=== PATIENT | male | born 1960 | race Caucasian/White ===

== ENCOUNTER 2016-03-22 14:15 | Emergency (ER) | payer MEDICARE, OTHER ==
[~2016-03-22] VITALS: Ht 167.6 cm; Wt 61.8 kg
[~2016-03-22 14:15] MED LIST: ASPI-556 PO; INSLAN SQ; INSNOV SQ; METF500T4 PO; VITAD1000 PO
[2016-03-22 14:26] LABS: GLUCOSE,POINT OF CARE > 600 MG/DL (70-110)
[2016-03-22 15:46] LABS: BASOPHILS % (AUTO) 0.7 % (0.0-2.0); EOSINOPHILS % (AUTO) 4.4 % (1.0-6.0); HEMATOCRIT 37.6 % (41-53); HEMOGLOBIN 12.9 g/dL (13.5-17.5); LYMPHOCYTES # (AUTO) 1.7 K/uL (1.0-4.8); LYMPHOCYTES % (AUTO) 23.6 % (22.0-44.0); MEAN CORPUSCULAR HEMOGLOBIN 30.3 pg (26.0-34.0); MEAN CORPUSCULAR HGB CONC 34.2 G/dL (31.0-37.0); MEAN CORPUSCULAR VOLUME 89 fL (80-100); MONOCYTES # (AUTO) 0.6 K/uL (0.1-1.0); MONOCYTES % (AUTO) 8.4 % (2.0-9.0); NEUTROPHILS # (AUTO) 4.5 K/uL (1.8-7.7); NEUTROPHILS % (AUTO) 62.9 % (40.0-70.0); PLATELET COUNT (AUTO) 248 K/uL (150-450); RED BLOOD CELL COUNT(AUTO) 4.25 MIL/uL (4.50-5.90); RED CELL DISTRIBUTION WIDTH 12.8 % (11.5-14.5); WHITE BLOOD COUNT (AUTO) 7.2 K/uL (4.5-11.0)
[2016-03-22] MEDS ORDERED: SODIUM CHLORIDE 0.9% 1,000 ML IV ONE ×2 (16:00→17:45)
[2016-03-22 16:02] LABS: ALBUMIN 3.6 g/dL (3.4-5.0); BILIRUBIN,TOTAL 0.4 mg/dL (0.1-1.0); CALCIUM, TOTAL 8.9 mg/dL (8.8-10.5); CREATININE 1.69 mg/dL (0.60-1.30); POTASSIUM 4.5 mmol/L (3.5-5.1); TOTAL PROTEIN, SERUM 7.6 g/dL (6.4-8.2)
[2016-03-22 16:31] LABS: APPEARANCE,URINE CLEAR (CLEAR); GLUCOSE, URINE (UA) >=1000 mg/dL (NEGATIVE); KETONES,URINE NEGATIVE (NEGATIVE); LEUKOCYTE ESTERASE ,URINE NEGATIVE (NEGATIVE); OCCULT BLOOD,URINE TRACE (NEGATIVE); PH,URINE 5.5 (5.0-8.0); PROTEIN,URINE NEGATIVE (NEGATIVE)
[2016-03-22] MEDS ORDERED: HYDROCODONE/ACETAMINOPHEN 5-325 MG TABLET PO ONE (16:45)
[2016-03-22] MEDS ORDERED: INSULIN REGULAR, HUMAN 100 UNITS/ML IVP ONE (16:45)
[2016-03-22 16:49] LABS: ABG A-A DIFF O2 13.9 mmHg (10-20.0); ABG HCO3 20.9 mmol/L (22.0-26.0); ABG OXYHEMOGLOBIN 95.7 % (94.0-100.0); ABG PCO2 35 mmHg (35-45); ABG PH 7.381 (7.35-7.450); ALLEN TEST, BLOOD GAS Positive
[2016-03-22 16:51] LABS: RBC,URINE None Seen /HPF (0-2); SQUAMOUS EPITHELIAL CELL,UR Rare /LPF (None Seen); WBC,URINE 0-2 /HPF (0-5)
[2016-03-22 18:02] LABS: GLUCOSE,POINT OF CARE 170 MG/DL (70-110)
[2016-03-22 18:41] LABS: GLUCOSE,POINT OF CARE 106 MG/DL (70-110)
[2016-03-22] MEDS ORDERED: KETOROLAC TROMETHAMINE 30 MG/ML VIAL IVP ONE (18:45)
[2016-03-22 19:36] LABS: ANION GAP 7 mmol/L (8-16); CALCIUM, TOTAL 8.2 mg/dL (8.8-10.5); CARBON DIOXIDE 21 mmol/L (22-29); CHLORIDE 104 mmol/L (98-107); CREATININE 1.06 mg/dL (0.60-1.30); GLOMERULAR FILTR. RATE CALC > 60 mL/min (>60); POTASSIUM 3.8 mmol/L (3.5-5.1); SODIUM SERUM 132 mmol/L (136-145); UREA NITROGEN, BLOOD 22 mg/dL (7-18)
[2016-03-22 19:56] VITALS: BP 105/71
[2016-03-22 19:56] LABS: GLUCOSE,POINT OF CARE 209 MG/DL (70-110)
== END 2016-03-22 20:18 | disposition home or self-care (01) ==
LOC: EMS 14:17
DX: E11.65 Type 2 diabetes mellitus with hyperglycemia (principal); E86.0 Dehydration; I10 Essential (primary) hypertension; E78.00 Pure hypercholesterolemia, unspecified; F17.210 Nicotine dependence, cigarettes, uncomplicated; Z79.82 Long term (current) use of aspirin; Z79.4 Long term (current) use of insulin
CPT/HCPCS: 36415; 71010; 80048; 80053; 81001; 82009; 82805; 82962; 83690; 83880; 84484; 85025; 93005; 96361; 96374; 96375; 99285; J1815; J1885; J7030

== ENCOUNTER 2016-03-28 21:32 | Inpatient (IN) | payer MEDICARE, OTHER ==
[~2016-03-28] VITALS: Ht 167.6 cm; Wt 80.2 kg
[2016-03-28] MEDS ORDERED: GABA-531 PO (21:47)
[2016-03-28] MEDS ORDERED: IBUP-1547 PO (21:47)
[2016-03-28] MEDS ORDERED: AMOX500T2 PO (21:47)
[2016-03-28 21:56] LABS: GLUCOSE,POINT OF CARE 342 MG/DL (70-110)
[2016-03-28 22:26] LABS: BASOPHILS # (AUTO) 0.03 K/uL (0.00-0.20); BASOPHILS % (AUTO) 0.6 % (0.0-2.0); EOSINOPHILS # (AUTO) 0.23 K/uL (0.00-0.70); EOSINOPHILS % (AUTO) 4.05 % (1.0-6.0); HEMATOCRIT 36.9 % (41-53); HEMOGLOBIN 12.5 g/dL (13.5-17.5); LYMPHOCYTES # (AUTO) 1.7 K/uL (1.0-4.8); LYMPHOCYTES % (AUTO) 30.1 % (22.0-44.0); MEAN CORPUSCULAR HEMOGLOBIN 30.4 pg (26.0-34.0); MEAN CORPUSCULAR VOLUME 90 fL (80-100); MONOCYTES # (AUTO) 0.5 K/uL (0.1-1.0); MONOCYTES % (AUTO) 9.5 % (2.0-9.0); NEUTROPHILS # (AUTO) 3.2 K/uL (1.8-7.7); NEUTROPHILS % (AUTO) 55.8 % (40.0-70.0); PLATELET COUNT (AUTO) 248 K/uL (150-450); RED BLOOD CELL COUNT(AUTO) 4.12 MIL/uL (4.50-5.90); RED CELL DISTRIBUTION WIDTH 12.9 % (11.5-14.5); WHITE BLOOD COUNT (AUTO) 5.7 K/uL (4.5-11.0)
[2016-03-28 22:33] LABS: INR 0.9 (0.9-1.1)
[2016-03-28 22:36] LABS: ANION GAP 6 mmol/L (8-16); CALCIUM, TOTAL 8.7 mg/dL (8.8-10.5); CARBON DIOXIDE 29 mmol/L (22-29); CHLORIDE 100 mmol/L (98-107); CREATININE 1.09 mg/dL (0.60-1.30); GLOMERULAR FILTR. RATE CALC > 60 mL/min (>60); POTASSIUM 4.6 mmol/L (3.5-5.1); SODIUM SERUM 135 mmol/L (136-145); UREA NITROGEN, BLOOD 22 mg/dL (7-18)
[2016-03-28 22:44] LABS: B-TYPE NATRIURETIC PEPTIDE 57 pg/mL (0-100)
[2016-03-28 23:00] LABS: ALANINE AMINOTRANSFERASE 22 U/L (12-78); ALBUMIN 3.2 g/dL (3.4-5.0); ASPARTATE AMINOTRANSFERASE 11 U/L (15-37); BILIRUBIN,TOTAL 0.4 mg/dL (0.1-1.0); CREATINE KINASE MB 2.2 ng/mL (0-5); CREATINE KINASE, TOTAL 233 U/L (39-308); TOTAL PROTEIN, SERUM 6.9 g/dL (6.4-8.2)
[2016-03-28 23:29] LABS: ERYTHROCYTE SEDIMENTATION RATE 32 MM/HR (0-15)
[2016-03-29] VITALS (8 sets, daily range): BP systolic 88–153; BP diastolic 50–81
[2016-03-29] MEDS ORDERED: SODIUM CHLORIDE 0.9% 1,000 ML IV ONE (00:15)
[2016-03-29] MEDS ORDERED: ONDANSETRON HCL 4 MG/2 ML VIAL IVP ONE (00:15)
[2016-03-29] MEDS ORDERED: MORPHINE SULFATE 4 MG/ML SYRINGE IVP ONE (00:15)
[2016-03-29] MEDS ORDERED: INSULIN REGULAR, HUMAN 100 UNITS/ML IVP ONE (00:15)
[2016-03-29] MEDS ORDERED: ASPIRIN 81 MG CHEWABLE TABLET PO ONE (00:15)
[2016-03-29] MEDS ORDERED: DEXTROSE 50%-WATER 25 GM/50 ML SYRINGE IVP PRN (01:15)
[2016-03-29] MEDS ORDERED: NITROGLYCERIN 2% (1 GM=INCH) PACKET TP PRN (01:15)
[2016-03-29] MEDS ORDERED: NITROGLYCERIN 0.4 MG SUBLINGUAL TABLET #25 SL PRN (01:15)
[2016-03-29 01:21] LABS: GLUCOSE COMMENT 1 Doctor Notified; GLUCOSE,POINT OF CARE 218 MG/DL (70-110)
[2016-03-29] MEDS ORDERED: INFLUENZA VIRUS VACCINE QVS 2016-17 (3YR+)/PF 60 MCG/0.5 ML SYRINGE IM ONE (03:30)
[2016-03-29] MEDS ORDERED: -PHARMACY VACCINE NOTE- MISC ONE ×2 (03:45)
[2016-03-29] MEDS: MORPHINE SULFATE 2 MG/ML SYRINGE IVP PRN ×2 (03:56→15:19)
[2016-03-29] MEDS: INSULIN ASPART 100 UNITS/ML SQ PRN ×3 (05:33→17:22)
[2016-03-29] MEDS: ASPIRIN 81 MG CHEWABLE TABLET PO SCH (09:11)
[2016-03-29] MEDS: ACETAMINOPHEN 325 MG TABLET PO PRN (13:17)
[2016-03-29] MEDS ORDERED: SODIUM CHLORIDE 0.9% 250 ML IV ONE ×2 (16:09→16:15)
[2016-03-29] MEDS ORDERED: IBUPROFEN 800 MG TABLET PO SCH (21:00)
[2016-03-29] MEDS: INSULIN DETEMIR 100 UNITS/ML SQ SCH (21:03)
[2016-03-29] MEDS: GABAPENTIN 300 MG CAPSULE PO SCH (21:04)
[2016-03-30] VITALS (7 sets, daily range): BP systolic 99–131; BP diastolic 60–76
[2016-03-30 07:36] LABS: ANION GAP 2 mmol/L (8-16); CALCIUM, TOTAL 8.4 mg/dL (8.8-10.5); CARBON DIOXIDE 30 mmol/L (22-29); CHLORIDE 105 mmol/L (98-107); CREATINE KINASE, TOTAL 84 U/L (39-308); CREATININE 0.81 mg/dL (0.60-1.30); GLOMERULAR FILTR. RATE CALC > 60 mL/min (>60); POTASSIUM 4.6 mmol/L (3.5-5.1); SODIUM SERUM 137 mmol/L (136-145); UREA NITROGEN, BLOOD 16 mg/dL (7-18)
[2016-03-30 07:37] LABS: CHOL/HDL RATIO 1.9 (4.2-7.3); CREATINE KINASE MB 1.4 ng/mL (0-5)
[2016-03-30 07:49] LABS: B-TYPE NATRIURETIC PEPTIDE 70 pg/mL (0-100)
[2016-03-30] MEDS: ASPIRIN 81 MG CHEWABLE TABLET PO SCH (09:14)
[2016-03-30] MEDS ORDERED: REGADENOSON 0.4 MG/5 ML PF SYRINGE IVP ONE (13:04)
[2016-03-30] MEDS ORDERED: SESTAMIBI TC99M/UD ISOTOPE 1 EA INJ INJ ONE ×2 (13:05→15:10)
[2016-03-30] MEDS: ACETAMINOPHEN 325 MG TABLET PO PRN (13:36)
[2016-03-30] MEDS: INSULIN ASPART 100 UNITS/ML SQ PRN ×3 (14:09→22:08)
[2016-03-30] MEDS: GABAPENTIN 300 MG CAPSULE PO SCH (22:06)
[2016-03-30] MEDS: INSULIN DETEMIR 100 UNITS/ML SQ SCH (22:07)
[2016-03-31] VITALS (14 sets, daily range): BP systolic 91–111; BP diastolic 51–70
[2016-03-31] MEDS ORDERED: 0.9% SODIUM CHLORIDE 10 ML SYRINGE IVP PRN (05:45)
[2016-03-31 06:21] LABS: GLUCOSE,POINT OF CARE 207 MG/DL (70-110)
[2016-03-31 06:21] LABS: GLUCOSE COMMENT 1 Received Meds; GLUCOSE,POINT OF CARE 227 MG/DL (70-110)
[2016-03-31 06:21] LABS: GLUCOSE,POINT OF CARE 180 MG/DL (70-110)
[2016-03-31 06:21] LABS: GLUCOSE COMMENT 1 Received Meds; GLUCOSE,POINT OF CARE 144 MG/DL (70-110)
[2016-03-31] MEDS ORDERED: HEPARIN SODIUM 1000 UNITS/NS 1,000 ML ONE (07:54)
[2016-03-31] MEDS ORDERED: IOHEXOL 300 MG/ML 150 ML VIAL ONE (07:54)
[2016-03-31] MEDS ORDERED: SODIUM BICARBONATE 50 MEQ/50 ML VIAL ONE (07:54)
[2016-03-31] MEDS ORDERED: LIDOCAINE HCL/PF 1% 30 ML VIAL ONE (07:54)
[2016-03-31] MEDS ORDERED: VERAPAMIL HCL 2.5 MG/ML 2 ML VIAL ONE (08:09)
[2016-03-31] MEDS ORDERED: NITROGLYCERIN 50 MG/D5% WATER 0 ML ONE (08:09)
[2016-03-31] MEDS ORDERED: MIDAZOLAM HCL 2 MG/2 ML VIAL ONE (08:24)
[2016-03-31] MEDS ORDERED: SODIUM CHLORIDE 0.9% 500 ML IV ONE (08:25)
[2016-03-31] MEDS ORDERED: FentaNYL CITRATE-PF 100 MCG/2 ML VIAL ONE (08:25)
[2016-03-31] MEDS ORDERED: HEPARIN SODIUM 1000 UNITS/NS 1,000 ML IARTER ONE (08:25)
[2016-03-31] MEDS ORDERED: MIDAZOLAM HCL 2 MG/2 ML VIAL IVP ONE (08:30)
[2016-03-31] MEDS ORDERED: LIDOCAINE 1% 30 ML/SOD BICARB 8.4% 4 ML SQ ONE (08:30)
[2016-03-31] MEDS ORDERED: FentaNYL CITRATE-PF 100 MCG/2 ML VIAL IVP ONE ×3 (08:30→09:00)
[2016-03-31] MEDS ORDERED: IOHEXOL 300 MG/ML 150 ML VIAL IARTER ONE (08:30)
[2016-03-31] MEDS: ASPIRIN 81 MG CHEWABLE TABLET PO SCH (09:00)
[2016-03-31] MEDS: MORPHINE SULFATE 2 MG/ML SYRINGE IVP PRN ×2 (09:44→15:22)
[2016-03-31] MEDS: INSULIN ASPART 100 UNITS/ML SQ PRN (12:22)
[2016-03-31] MEDS ORDERED: REGADENOSON 0.4 MG/5 ML PF SYRINGE IVP ONE (18:09)
[2016-04-05 15:21] LABS: GLUCOSE COMMENT 1 Received Meds; GLUCOSE,POINT OF CARE 244 MG/DL (70-110)
[2016-04-05 15:21] LABS: GLUCOSE COMMENT 1 Received Meds; GLUCOSE,POINT OF CARE 193 MG/DL (70-110)
== END 2016-03-31 18:10 | disposition home or self-care (01) | DRG 287 ==
LOC: EMS 21:34 → 5N 03-29 00:25
PROVIDERS: ADMIT Internal Medicine; ATTEND Internal Medicine
PROC: 3E0234Z Introduction of Serum, Toxoid and Vaccine into Muscle, Percutaneous Approach (ICD-10-PCS; principal; 2016-03-31)
PROC: 4A023N7 Measurement of Cardiac Sampling and Pressure, Left Heart, Percutaneous Approach (ICD-10-PCS; 2016-03-31)
PROC: B2111ZZ Fluoroscopy of Multiple Coronary Arteries using Low Osmolar Contrast (ICD-10-PCS; 2016-03-31)
PROC: B2151ZZ Fluoroscopy of Left Heart using Low Osmolar Contrast (ICD-10-PCS; 2016-03-31)
PROC: B41F1ZZ Fluoroscopy of Right Lower Extremity Arteries using Low Osmolar Contrast (ICD-10-PCS; 2016-03-31)
DX: R07.89 Other chest pain (principal); E44.0 Moderate protein-calorie malnutrition; E11.65 Type 2 diabetes mellitus with hyperglycemia; E86.0 Dehydration; F41.9 Anxiety disorder, unspecified; F32.9 Major depressive disorder, single episode, unspecified; I10 Essential (primary) hypertension; E11.40 Type 2 diabetes mellitus with diabetic neuropathy, unspecified; G89.29 Other chronic pain; D64.9 Anemia, unspecified; R51 Headache; E78.00 Pure hypercholesterolemia, unspecified; F17.210 Nicotine dependence, cigarettes, uncomplicated; Z79.2 Long term (current) use of antibiotics; Z79.899 Other long term (current) drug therapy; Z79.4 Long term (current) use of insulin; Z68.28 Body mass index [BMI] 28.0-28.9, adult; Z23 Encounter for immunization; Z87.81 Personal history of (healed) traumatic fracture; Z82.49 Family history of ischemic heart disease and other diseases of the circulatory system
CPT/HCPCS: 70450; 78452; 82962; 83036; 83735; 85651; 90471; 93005; 93017; 93306; 96374; 96375; 99285; A9500; J1644; J1815; J2250; J2270; J2405; J2785; J3010; J3490; J7030; J7050; Q9967

== ENCOUNTER 2016-04-14 18:21 | Emergency (ER) | payer MEDICARE, OTHER ==
[~2016-04-14] VITALS: Ht 170.2 cm; Wt 79.5 kg
[~2016-04-14 18:21] MED LIST changes: -ASPI-556 PO; +GABA-531 PO; -INSNOV SQ; -METF500T4 PO; -VITAD1000 PO
[2016-04-14] MEDS ORDERED: IBUP-1547 PO (19:03)
[2016-04-14 19:07] LABS: GLUCOSE,POINT OF CARE 217 MG/DL (70-110)
[2016-04-14] MEDS ORDERED: KETOROLAC TROMETHAMINE 30 MG/ML VIAL IM ONE (21:30)
[2016-04-14 21:45] LABS: BASOPHILS # (AUTO) 0.03 K/uL (0.00-0.20); BASOPHILS % (AUTO) 0.6 % (0.0-2.0); EOSINOPHILS # (AUTO) 0.26 K/uL (0.00-0.70); EOSINOPHILS % (AUTO) 5.03 % (1.0-6.0); HEMATOCRIT 32.2 % (41-53); HEMOGLOBIN 10.9 g/dL (13.5-17.5); LYMPHOCYTES # (AUTO) 1.8 K/uL (1.0-4.8); LYMPHOCYTES % (AUTO) 34.6 % (22.0-44.0); MEAN CORPUSCULAR HEMOGLOBIN 30.6 pg (26.0-34.0); MEAN CORPUSCULAR HGB CONC 33.8 G/dL (31.0-37.0); MEAN CORPUSCULAR VOLUME 90 fL (80-100); MONOCYTES # (AUTO) 0.6 K/uL (0.1-1.0); MONOCYTES % (AUTO) 12.4 % (2.0-9.0); NEUTROPHILS # (AUTO) 2.5 K/uL (1.8-7.7); NEUTROPHILS % (AUTO) 47.3 % (40.0-70.0); PLATELET COUNT (AUTO) 213 K/uL (150-450); RED BLOOD CELL COUNT(AUTO) 3.56 MIL/uL (4.50-5.90); RED CELL DISTRIBUTION WIDTH 13.2 % (11.5-14.5); WHITE BLOOD COUNT (AUTO) 5.2 K/uL (4.5-11.0)
[2016-04-14 21:55] LABS: ANION GAP 7 mmol/L (8-16); CALCIUM, TOTAL 8.5 mg/dL (8.8-10.5); CARBON DIOXIDE 27 mmol/L (22-29); CHLORIDE 107 mmol/L (98-107); CREATININE 1.04 mg/dL (0.60-1.30); GLOMERULAR FILTR. RATE CALC > 60 mL/min (>60); SODIUM SERUM 141 mmol/L (136-145); UREA NITROGEN, BLOOD 24 mg/dL (7-18)
[2016-04-14 22:00] LABS: ALANINE AMINOTRANSFERASE 21 U/L (12-78); ALBUMIN 3.1 g/dL (3.4-5.0); ASPARTATE AMINOTRANSFERASE 8 U/L (15-37); BILIRUBIN,TOTAL 0.3 mg/dL (0.1-1.0); TOTAL PROTEIN, SERUM 6.5 g/dL (6.4-8.2)
[2016-04-14 22:53] VITALS: BP 121/69
== END 2016-04-14 22:57 | disposition home or self-care (01) ==
LOC: EMS 18:24
DX: F19.20 Other psychoactive substance dependence, uncomplicated (principal); F41.9 Anxiety disorder, unspecified; F32.9 Major depressive disorder, single episode, unspecified; E11.9 Type 2 diabetes mellitus without complications; I10 Essential (primary) hypertension; E78.00 Pure hypercholesterolemia, unspecified; Z79.4 Long term (current) use of insulin
CPT/HCPCS: 36415; 71010; 80053; 82962; 85025; 93005; 96372; 99285; J1885

== ENCOUNTER 2016-04-19 10:43 | Emergency (ER) | payer MEDICARE, OTHER ==
[~2016-04-19] VITALS: Ht 167.6 cm; Wt 88.6 kg
[~2016-04-19 10:43] MED LIST changes: +IBUP-1547 PO
[2016-04-19 12:01] LABS: GLUCOSE,POINT OF CARE 150 MG/DL (70-110)
[2016-04-19] MEDS ORDERED: LOPERAMIDE HCL 2 MG CAPSULE PO ONE (15:45)
[2016-04-19] MEDS ORDERED: HYDROCODONE/ACETAMINOPHEN 5-325 MG TABLET PO ONE (15:45)
[2016-04-19] MEDS ORDERED: ONDANSETRON HCL 4 MG TABLET PO ONE (15:45)
[2016-04-19 16:09] LABS: BASOPHILS % (AUTO) 0.5 % (0.0-2.0); EOSINOPHILS % (AUTO) 3.9 % (1.0-6.0); HEMATOCRIT 34.7 % (41-53); HEMOGLOBIN 11.5 g/dL (13.5-17.5); LYMPHOCYTES # (AUTO) 1.6 K/uL (1.0-4.8); LYMPHOCYTES % (AUTO) 27.7 % (22.0-44.0); MEAN CORPUSCULAR HEMOGLOBIN 30.4 pg (26.0-34.0); MEAN CORPUSCULAR HGB CONC 33.3 G/dL (31.0-37.0); MEAN CORPUSCULAR VOLUME 91 fL (80-100); MONOCYTES # (AUTO) 0.6 K/uL (0.1-1.0); MONOCYTES % (AUTO) 10.9 % (2.0-9.0); NEUTROPHILS # (AUTO) 3.2 K/uL (1.8-7.7); PLATELET COUNT (AUTO) 205 K/uL (150-450); RED BLOOD CELL COUNT(AUTO) 3.79 MIL/uL (4.50-5.90); RED CELL DISTRIBUTION WIDTH 13.4 % (11.5-14.5); WHITE BLOOD COUNT (AUTO) 5.7 K/uL (4.5-11.0)
[2016-04-19 17:19] LABS: ERYTHROCYTE SEDIMENTATION RATE 44 MM/HR (0-15)
[2016-04-19 17:35] VITALS: BP 145/92
== END 2016-04-19 18:21 | disposition home or self-care (01) ==
LOC: EMS 10:46
DX: S90.414A Abrasion, right lesser toe(s), initial encounter (principal); E11.40 Type 2 diabetes mellitus with diabetic neuropathy, unspecified; E78.00 Pure hypercholesterolemia, unspecified; I10 Essential (primary) hypertension; F17.210 Nicotine dependence, cigarettes, uncomplicated; Z79.4 Long term (current) use of insulin; X58.XXXA Exposure to other specified factors, initial encounter; Y93.89 Activity, other specified; Y92.89 Other specified places as the place of occurrence of the external cause; Y99.8 Other external cause status
CPT/HCPCS: 36415; 73630; 82962; 85025; 85651; 86140; 99285; Q0162

== ENCOUNTER 2016-04-23 18:48 | Emergency (ER) | payer MEDICARE, OTHER ==
[~2016-04-23] VITALS: Ht 167.6 cm; Wt 88.2 kg
[2016-04-23 19:31] LABS: GLUCOSE COMMENT 1 Doctor Notified; GLUCOSE,POINT OF CARE 172 MG/DL (70-110)
[2016-04-23] MEDS ORDERED: KETOROLAC TROMETHAMINE 60 MG/2 ML VIAL IM ONE (21:00)
[2016-04-23 22:11] VITALS: BP 141/84
== END 2016-04-23 22:12 | disposition home or self-care (01) ==
LOC: EMS 18:55
DX: E11.40 Type 2 diabetes mellitus with diabetic neuropathy, unspecified (principal); R60.9 Edema, unspecified; G89.29 Other chronic pain; M25.579 Pain in unspecified ankle and joints of unspecified foot; I10 Essential (primary) hypertension; E78.00 Pure hypercholesterolemia, unspecified; E11.9 Type 2 diabetes mellitus without complications; Z87.891 Personal history of nicotine dependence; Z79.4 Long term (current) use of insulin
CPT/HCPCS: 82962; 96372; 99283; J1885

== ENCOUNTER 2016-06-09 11:42 | Emergency (ER) | payer MEDICARE, OTHER ==
[~2016-06-09] VITALS: Ht 170.2 cm; Wt 81.8 kg
[~2016-06-09 11:42] MED LIST changes: -IBUP-1547 PO
[2016-06-09] MEDS ORDERED: SODIUM CHLORIDE 0.9% 1,000 ML IV ONE (12:45)
[2016-06-09 12:55] LABS: BASOPHILS # (AUTO) 0.04 K/uL (0.00-0.20); BASOPHILS % (AUTO) 0.6 % (0.0-2.0); EOSINOPHILS % (AUTO) 2.99 % (1.0-6.0); HEMATOCRIT 33.6 % (41-53); HEMOGLOBIN 11.4 g/dL (13.5-17.5); LYMPHOCYTES # (AUTO) 1.1 K/uL (1.0-4.8); LYMPHOCYTES % (AUTO) 16.6 % (22.0-44.0); MEAN CORPUSCULAR HEMOGLOBIN 30.2 pg (26.0-34.0); MEAN CORPUSCULAR HGB CONC 33.8 G/dL (31.0-37.0); MEAN CORPUSCULAR VOLUME 89 fL (80-100); MONOCYTES # (AUTO) 0.6 K/uL (0.1-1.0); MONOCYTES % (AUTO) 8.9 % (2.0-9.0); NEUTROPHILS # (AUTO) 4.8 K/uL (1.8-7.7); PLATELET COUNT (AUTO) 239 K/uL (150-450); RED BLOOD CELL COUNT(AUTO) 3.76 MIL/uL (4.50-5.90); RED CELL DISTRIBUTION WIDTH 13.3 % (11.5-14.5); WHITE BLOOD COUNT (AUTO) 6.7 K/uL (4.5-11.0)
[2016-06-09 13:00] LABS: ANION GAP 8 mmol/L (8-16); CALCIUM, TOTAL 8.5 mg/dL (8.8-10.5); CARBON DIOXIDE 27 mmol/L (22-29); CHLORIDE 104 mmol/L (98-107); CREATININE 1.03 mg/dL (0.60-1.30); GLOMERULAR FILTR. RATE CALC > 60 mL/min (>60); POTASSIUM 3.9 mmol/L (3.5-5.1); SODIUM SERUM 139 mmol/L (136-145); UREA NITROGEN, BLOOD 24 mg/dL (7-18)
[2016-06-09] MEDS ORDERED: MIDODRINE HCL 5 MG TABLET PO ONE (13:00)
[2016-06-09 13:06] LABS: ALANINE AMINOTRANSFERASE 18 U/L (12-78); ALBUMIN 3.4 g/dL (3.4-5.0); ASPARTATE AMINOTRANSFERASE 5 U/L (15-37); BILIRUBIN,TOTAL 0.4 mg/dL (0.1-1.0); TOTAL PROTEIN, SERUM 7.4 g/dL (6.4-8.2)
[2016-06-09 16:12] VITALS: BP 144/76
[2016-06-09 16:57] LABS: GLUCOSE,POINT OF CARE 110 MG/DL (70-110)
== END 2016-06-09 16:14 | disposition home or self-care (01) ==
LOC: EMS 11:48
DX: I95.1 Orthostatic hypotension (principal); E78.00 Pure hypercholesterolemia, unspecified; I10 Essential (primary) hypertension; E11.40 Type 2 diabetes mellitus with diabetic neuropathy, unspecified; Z87.891 Personal history of nicotine dependence; Z79.4 Long term (current) use of insulin
CPT/HCPCS: 36415; 80053; 82962; 85025; 93005; 96360; 99285; J7030

== ENCOUNTER 2016-06-15 11:03 | Emergency (ER) | payer MEDICARE, OTHER ==
[~2016-06-15] VITALS: Ht 167.6 cm; Wt 83.0 kg
[2016-06-15 11:17] LABS: GLUCOSE,POINT OF CARE 314 MG/DL (70-110)
[2016-06-15] MEDS ORDERED: SODIUM CHLORIDE 0.9% 1,000 ML IV ONE (11:30)
[2016-06-15 11:34] LABS: BASOPHILS % (AUTO) 0.7 % (0.0-2.0); EOSINOPHILS % (AUTO) 5.7 % (1.0-6.0); HEMATOCRIT 38.3 % (41-53); HEMOGLOBIN 12.7 g/dL (13.5-17.5); LYMPHOCYTES # (AUTO) 1.4 K/uL (1.0-4.8); MEAN CORPUSCULAR HEMOGLOBIN 29.4 pg (26.0-34.0); MEAN CORPUSCULAR HGB CONC 33.2 G/dL (31.0-37.0); MEAN CORPUSCULAR VOLUME 89 fL (80-100); MONOCYTES # (AUTO) 0.7 K/uL (0.1-1.0); MONOCYTES % (AUTO) 11.9 % (2.0-9.0); NEUTROPHILS # (AUTO) 3.1 K/uL (1.8-7.7); NEUTROPHILS % (AUTO) 56.7 % (40.0-70.0); PLATELET COUNT (AUTO) 338 K/uL (150-450); RED BLOOD CELL COUNT(AUTO) 4.33 MIL/uL (4.50-5.90); RED CELL DISTRIBUTION WIDTH 13.1 % (11.5-14.5); WHITE BLOOD COUNT (AUTO) 5.5 K/uL (4.5-11.0)
[2016-06-15 11:45] LABS: ANION GAP 8 mmol/L (8-16); CALCIUM, TOTAL 9.3 mg/dL (8.8-10.5); CARBON DIOXIDE 28 mmol/L (22-29); CHLORIDE 98 mmol/L (98-107); CREATININE 1.26 mg/dL (0.60-1.30); GLOMERULAR FILTR. RATE CALC 59 mL/min (>60); POTASSIUM 4.4 mmol/L (3.5-5.1); SODIUM SERUM 134 mmol/L (136-145); UREA NITROGEN, BLOOD 22 mg/dL (7-18)
[2016-06-15 11:50] LABS: ALANINE AMINOTRANSFERASE 31 U/L (12-78); ALBUMIN 3.4 g/dL (3.4-5.0); ASPARTATE AMINOTRANSFERASE 9 U/L (15-37); BILIRUBIN,TOTAL 0.4 mg/dL (0.1-1.0); CREATINE KINASE, TOTAL 64 U/L (39-308); TOTAL PROTEIN, SERUM 8.2 g/dL (6.4-8.2)
[2016-06-15 12:02] LABS: B-TYPE NATRIURETIC PEPTIDE 72 pg/mL (0-100)
[2016-06-15] MEDS ORDERED: IOVERSOL 350 MG/ML 100 ML VIAL ONE (14:48)
[2016-06-15] MEDS ORDERED: SODIUM CHLORIDE 0.9% 100 ML ONE (14:48)
[2016-06-15] MEDS ORDERED: ONDANSETRON HCL 4 MG/2 ML VIAL ONE (14:55)
[2016-06-15 15:40] VITALS: BP 96/66
[2016-06-15] MEDS ORDERED: GABAPENTIN 300 MG CAPSULE PO ONE (16:15)
== END 2016-06-15 17:09 | disposition home or self-care (01) ==
LOC: EMS 11:05
DX: R42 Dizziness and giddiness (principal); E11.9 Type 2 diabetes mellitus without complications; I10 Essential (primary) hypertension; E78.00 Pure hypercholesterolemia, unspecified; Z79.4 Long term (current) use of insulin; Z87.891 Personal history of nicotine dependence
CPT/HCPCS: 36415; 70450; 70496; 71010; 80053; 80307; 82140; 82550; 82962; 83880; 84484; 85025; 85610; 85730; 93005; 96360; 96361; 99285; J7030; J7050; Q9967; J2405

== ENCOUNTER 2016-07-19 09:30 | Emergency (ER) | payer MEDICARE, OTHER ==
[~2016-07-19] VITALS: Ht 167.6 cm; Wt 83.5 kg
[2016-07-19 09:47] LABS: GLUCOSE,POINT OF CARE 234 MG/DL (70-110)
[2016-07-19] MEDS ORDERED: METF500T4 PO (10:06)
[2016-07-19] MEDS ORDERED: TRAM50TA4 PO (10:06)
[2016-07-19 10:28] LABS: BASOPHILS % (AUTO) 0.4 % (0.0-2.0); EOSINOPHILS % (AUTO) 3.7 % (1.0-6.0); HEMOGLOBIN 12.8 g/dL (13.5-17.5); LYMPHOCYTES # (AUTO) 1.5 K/uL (1.0-4.8); LYMPHOCYTES % (AUTO) 18.8 % (22.0-44.0); MEAN CORPUSCULAR HGB CONC 34.6 G/dL (31.0-37.0); MEAN CORPUSCULAR VOLUME 87 fL (80-100); MONOCYTES # (AUTO) 0.6 K/uL (0.1-1.0); MONOCYTES % (AUTO) 8.1 % (2.0-9.0); NEUTROPHILS # (AUTO) 5.5 K/uL (1.8-7.7); PLATELET COUNT (AUTO) 207 K/uL (150-450); RED BLOOD CELL COUNT(AUTO) 4.27 MIL/uL (4.50-5.90); RED CELL DISTRIBUTION WIDTH 13.5 % (11.5-14.5)
[2016-07-19] MEDS ORDERED: SODIUM CHLORIDE 0.9% 1,000 ML IV ONE (10:30)
[2016-07-19] MEDS ORDERED: KETOROLAC TROMETHAMINE 30 MG/ML VIAL IVP ONE (10:30)
[2016-07-19 10:37] LABS: ANION GAP 11 mmol/L (8-16); CARBON DIOXIDE 24 mmol/L (22-29); CHLORIDE 101 mmol/L (98-107); CREATININE 1.36 mg/dL (0.60-1.30); GLOMERULAR FILTR. RATE CALC 54 mL/min (>60); POTASSIUM 4.5 mmol/L (3.5-5.1); SODIUM SERUM 136 mmol/L (136-145); UREA NITROGEN, BLOOD 38 mg/dL (7-18)
[2016-07-19 10:38] LABS: PROTHROMBIN TIME 10.4 SEC (9.4-11.6)
[2016-07-19 10:50] LABS: B-TYPE NATRIURETIC PEPTIDE 35 pg/mL (0-100)
[2016-07-19 10:52] LABS: APPEARANCE,URINE CLEAR (CLEAR); GLUCOSE, URINE (UA) 500 mg/dL (NEGATIVE); KETONES,URINE NEGATIVE (NEGATIVE); LEUKOCYTE ESTERASE ,URINE NEGATIVE (NEGATIVE); OCCULT BLOOD,URINE NEGATIVE (NEGATIVE); PROTEIN,URINE POS 1+ (NEGATIVE)
[2016-07-19 10:53] LABS: ADD UA MICROSCOPIC YES
[2016-07-19 11:00] LABS: RBC,URINE 0-2 /HPF (0-2); WBC,URINE 0-2 /HPF (0-5)
[2016-07-19 11:01] LABS: SQUAMOUS EPITHELIAL CELL,UR Few /LPF (None Seen)
[2016-07-19 11:02] LABS: ALANINE AMINOTRANSFERASE 20 U/L (12-78); ASPARTATE AMINOTRANSFERASE 6 U/L (15-37); BILIRUBIN,TOTAL 0.6 mg/dL (0.1-1.0); CREATINE KINASE MB 1.5 ng/mL (0-5); CREATINE KINASE, TOTAL 89 U/L (39-308); TOTAL PROTEIN, SERUM 7.9 g/dL (6.4-8.2)
[2016-07-19] MEDS ORDERED: MECLIZINE HCL 25 MG TABLET PO ONE (11:15)
[2016-07-19 11:58] VITALS: BP 117/77
== END 2016-07-19 12:06 | disposition home or self-care (01) ==
LOC: EMS 09:32
DX: E86.0 Dehydration (principal); E11.40 Type 2 diabetes mellitus with diabetic neuropathy, unspecified; E78.00 Pure hypercholesterolemia, unspecified; I10 Essential (primary) hypertension; Z79.4 Long term (current) use of insulin; Z87.891 Personal history of nicotine dependence
CPT/HCPCS: 36415; 71010; 80053; 80307; 81001; 82550; 82553; 82962; 83880; 84484; 85025; 85610; 85730; 93005; 96361; 96374; 99285; J1885; J7030

== ENCOUNTER 2016-08-04 07:57 | Emergency (ER) | payer MEDICARE, OTHER ==
[~2016-08-04] VITALS: Ht 170.2 cm; Wt 78.6 kg
[~2016-08-04 07:57] MED LIST changes: +METF500T4 PO; +TRAM50TA4 PO
[2016-08-04] MEDS ORDERED: SODIUM CHLORIDE 0.9% 1,000 ML IV ONE ×2 (08:30→09:45)
[2016-08-04] MEDS ORDERED: ONDANSETRON HCL 4 MG/2 ML VIAL IVP ONE (08:30)
[2016-08-04] MEDS ORDERED: LOPERAMIDE HCL 2 MG CAPSULE PO ONE (08:30)
[2016-08-04 08:44] LABS: BASOPHILS % (AUTO) 0.5 % (0.0-2.0); EOSINOPHILS % (AUTO) 6.8 % (1.0-6.0); HEMATOCRIT 34.6 % (41-53); HEMOGLOBIN 11.9 g/dL (13.5-17.5); LYMPHOCYTES # (AUTO) 1.4 K/uL (1.0-4.8); LYMPHOCYTES % (AUTO) 27.7 % (22.0-44.0); MEAN CORPUSCULAR HEMOGLOBIN 30.7 pg (26.0-34.0); MEAN CORPUSCULAR HGB CONC 34.4 G/dL (31.0-37.0); MEAN CORPUSCULAR VOLUME 89 fL (80-100); MONOCYTES # (AUTO) 0.5 K/uL (0.1-1.0); MONOCYTES % (AUTO) 8.6 % (2.0-9.0); NEUTROPHILS # (AUTO) 2.9 K/uL (1.8-7.7); NEUTROPHILS % (AUTO) 56.4 % (40.0-70.0); PLATELET COUNT (AUTO) 198 K/uL (150-450); RED BLOOD CELL COUNT(AUTO) 3.88 MIL/uL (4.50-5.90); RED CELL DISTRIBUTION WIDTH 14.2 % (11.5-14.5); WHITE BLOOD COUNT (AUTO) 5.2 K/uL (4.5-11.0)
[2016-08-04 08:57] LABS: ANION GAP 9 mmol/L (8-16); CALCIUM, TOTAL 8.7 mg/dL (8.8-10.5); CARBON DIOXIDE 23 mmol/L (22-29); CHLORIDE 106 mmol/L (98-107); GLOMERULAR FILTR. RATE CALC > 60 mL/min (>60); POTASSIUM 3.8 mmol/L (3.5-5.1); SODIUM SERUM 138 mmol/L (136-145); UREA NITROGEN, BLOOD 24 mg/dL (7-18)
[2016-08-04 09:02] LABS: ALANINE AMINOTRANSFERASE 17 U/L (12-78); ALBUMIN 3.6 g/dL (3.4-5.0); ASPARTATE AMINOTRANSFERASE 8 U/L (15-37); BILIRUBIN,TOTAL 0.7 mg/dL (0.1-1.0); TOTAL PROTEIN, SERUM 7.1 g/dL (6.4-8.2)
[2016-08-04 10:15] VITALS: BP 115/69
== END 2016-08-04 11:14 | disposition home or self-care (01) ==
LOC: EMS 07:59
DX: R19.7 Diarrhea, unspecified (principal); E86.0 Dehydration; R11.0 Nausea; E78.00 Pure hypercholesterolemia, unspecified; E11.40 Type 2 diabetes mellitus with diabetic neuropathy, unspecified; I10 Essential (primary) hypertension; Z79.4 Long term (current) use of insulin; Z87.891 Personal history of nicotine dependence
CPT/HCPCS: 36415; 80053; 82962; 85025; 96361; 96374; 99284; J2405; J7030

== ENCOUNTER 2016-08-16 07:30 | Emergency (ER) | payer MEDICARE, OTHER ==
[~2016-08-16] VITALS: Ht 167.6 cm; Wt 79.0 kg
[2016-08-16] MEDS ORDERED: KETOROLAC TROMETHAMINE 60 MG/2 ML VIAL IM ONE (08:15)
[2016-08-16] MEDS ORDERED: OxyCODONE HCL/ACETAMINOPHEN 5-325 MG TABLET PO ONE (09:30)
[2016-08-16 09:50] VITALS: BP 112/58
== END 2016-08-16 10:18 | disposition home or self-care (01) ==
LOC: EMS 07:33
DX: S40.012A Contusion of left shoulder, initial encounter (principal); S60.222A Contusion of left hand, initial encounter; E11.9 Type 2 diabetes mellitus without complications; E78.00 Pure hypercholesterolemia, unspecified; I10 Essential (primary) hypertension; Z79.4 Long term (current) use of insulin; W19.XXXA Unspecified fall, initial encounter; Y93.89 Activity, other specified; Y92.89 Other specified places as the place of occurrence of the external cause; Y99.8 Other external cause status
CPT/HCPCS: 73030; 73130; 82962; 96372; 99284; J1885

== ENCOUNTER 2016-08-18 08:44 | Emergency (ER) | payer MEDICARE, OTHER ==
[~2016-08-18] VITALS: Ht 167.6 cm; Wt 79.0 kg
[2016-08-18 08:57] LABS: GLUCOSE,POINT OF CARE 182 MG/DL (70-110)
[2016-08-18] MEDS ORDERED: ASPIRIN 81 MG CHEWABLE TABLET PO ONE (09:30)
[2016-08-18 10:10] LABS: BASOPHILS # (AUTO) 0.03 K/uL (0.00-0.20); BASOPHILS % (AUTO) 0.8 % (0.0-2.0); EOSINOPHILS % (AUTO) 4.73 % (1.0-6.0); HEMOGLOBIN 11.9 g/dL (13.5-17.5); LYMPHOCYTES # (AUTO) 1.2 K/uL (1.0-4.8); LYMPHOCYTES % (AUTO) 27.2 % (22.0-44.0); MEAN CORPUSCULAR HEMOGLOBIN 30.7 pg (26.0-34.0); MEAN CORPUSCULAR VOLUME 88 fL (80-100); MONOCYTES # (AUTO) 0.4 K/uL (0.1-1.0); MONOCYTES % (AUTO) 8.1 % (2.0-9.0); NEUTROPHILS # (AUTO) 2.6 K/uL (1.8-7.7); NEUTROPHILS % (AUTO) 59.2 % (40.0-70.0); PLATELET COUNT (AUTO) 242 K/uL (150-450); RED BLOOD CELL COUNT(AUTO) 3.88 MIL/uL (4.50-5.90); RED CELL DISTRIBUTION WIDTH 13.6 % (11.5-14.5); WHITE BLOOD COUNT (AUTO) 4.3 K/uL (4.5-11.0)
[2016-08-18 10:21] LABS: ANION GAP 6 mmol/L (8-16); CALCIUM, TOTAL 9.3 mg/dL (8.8-10.5); CARBON DIOXIDE 28 mmol/L (22-29); CHLORIDE 102 mmol/L (98-107); CREATININE 1.02 mg/dL (0.60-1.30); GLOMERULAR FILTR. RATE CALC > 60 mL/min (>60); SODIUM SERUM 136 mmol/L (136-145); UREA NITROGEN, BLOOD 19 mg/dL (7-18)
[2016-08-18 10:41] LABS: B-TYPE NATRIURETIC PEPTIDE 41 pg/mL (0-100)
[2016-08-18 10:46] LABS: ALANINE AMINOTRANSFERASE 21 U/L (12-78); ALBUMIN 3.7 g/dL (3.4-5.0); ASPARTATE AMINOTRANSFERASE 9 U/L (15-37); BILIRUBIN,TOTAL 0.7 mg/dL (0.1-1.0); CREATINE KINASE MB 2.3 ng/mL (0-5); CREATINE KINASE, TOTAL 147 U/L (39-308); TOTAL PROTEIN, SERUM 7.6 g/dL (6.4-8.2)
[2016-08-18] MEDS ORDERED: ONDANSETRON HCL 4 MG/2 ML VIAL IVP PRN (11:15)
[2016-08-18] MEDS ORDERED: ACETAMINOPHEN 325 MG TABLET PO PRN (11:15)
[2016-08-18 12:11] VITALS: BP 114/72
== END 2016-08-18 12:32 | disposition home or self-care (01) ==
LOC: EMS 08:46
DX: R07.89 Other chest pain (principal); R11.2 Nausea with vomiting, unspecified; E78.00 Pure hypercholesterolemia, unspecified; I10 Essential (primary) hypertension; E11.9 Type 2 diabetes mellitus without complications; Z87.891 Personal history of nicotine dependence; Z79.4 Long term (current) use of insulin
CPT/HCPCS: 82962; 93005; 99285

== ENCOUNTER 2016-08-30 16:17 | Emergency (ER) | payer MEDICARE, OTHER ==
[~2016-08-30] VITALS: Ht 170.2 cm; Wt 83.6 kg
[2016-08-30 16:32] LABS: GLUCOSE,POINT OF CARE 217 MG/DL (70-110)
[2016-08-30] MEDS ORDERED: TraMADol HCL 50 MG TABLET PO ONE (17:15)
[2016-08-30 17:34] VITALS: BP 121/61
== END 2016-08-30 17:36 | disposition home or self-care (01) ==
LOC: EMS 16:30
DX: M79.642 Pain in left hand (principal); M79.641 Pain in right hand; F41.9 Anxiety disorder, unspecified; F32.9 Major depressive disorder, single episode, unspecified; E78.00 Pure hypercholesterolemia, unspecified; I10 Essential (primary) hypertension; E11.9 Type 2 diabetes mellitus without complications; Z79.899 Other long term (current) drug therapy; Z79.4 Long term (current) use of insulin
CPT/HCPCS: 82962; 99283

== ENCOUNTER 2016-10-09 06:09 | Emergency (ER) | payer MEDICARE, OTHER ==
[~2016-10-09] VITALS: Ht 167.6 cm; Wt 83.5 kg
[2016-10-09 06:22] LABS: GLUCOSE,POINT OF CARE 144 MG/DL (70-110)
[2016-10-09] MEDS ORDERED: KETOROLAC TROMETHAMINE 60 MG/2 ML VIAL IM ONE (07:00)
[2016-10-09] MEDS ORDERED: ACETAMINOPHEN 500 MG TABLET PO ONE (07:00)
[2016-10-09 07:27] LABS: BASOPHILS # (AUTO) 0.02 K/uL (0.00-0.20); BASOPHILS % (AUTO) 0.5 % (0.0-2.0); EOSINOPHILS # (AUTO) 0.34 K/uL (0.00-0.70); HEMATOCRIT 35.3 % (41-53); HEMOGLOBIN 12.1 g/dL (13.5-17.5); LYMPHOCYTES # (AUTO) 1.8 K/uL (1.0-4.8); LYMPHOCYTES % (AUTO) 38.8 % (22.0-44.0); MEAN CORPUSCULAR HGB CONC 34.4 G/dL (31.0-37.0); MEAN CORPUSCULAR VOLUME 90 fL (80-100); MONOCYTES # (AUTO) 0.5 K/uL (0.1-1.0); MONOCYTES % (AUTO) 11.7 % (2.0-9.0); NEUTROPHILS # (AUTO) 1.9 K/uL (1.8-7.7); NEUTROPHILS % (AUTO) 41.6 % (40.0-70.0); PLATELET COUNT (AUTO) 187 K/uL (150-450); RED BLOOD CELL COUNT(AUTO) 3.92 MIL/uL (4.50-5.90); RED CELL DISTRIBUTION WIDTH 13.7 % (11.5-14.5); WHITE BLOOD COUNT (AUTO) 4.6 K/uL (4.5-11.0)
[2016-10-09 07:39] LABS: APPEARANCE,URINE CLEAR (CLEAR); GLUCOSE, URINE (UA) NEGATIVE (NEGATIVE); KETONES,URINE NEGATIVE (NEGATIVE); LEUKOCYTE ESTERASE ,URINE NEGATIVE (NEGATIVE); OCCULT BLOOD,URINE NEGATIVE (NEGATIVE); PROTEIN,URINE TRACE (NEGATIVE)
[2016-10-09 07:41] LABS: ADD UA MICROSCOPIC NO
[2016-10-09 07:46] LABS: ANION GAP 10 mmol/L (8-16); CALCIUM, TOTAL 8.9 mg/dL (8.8-10.5); CARBON DIOXIDE 25 mmol/L (22-29); CHLORIDE 103 mmol/L (98-107); CREATININE 1.36 mg/dL (0.60-1.30); GLOMERULAR FILTR. RATE CALC 54 mL/min (>60); POTASSIUM 4.6 mmol/L (3.5-5.1); SODIUM SERUM 138 mmol/L (136-145); UREA NITROGEN, BLOOD 35 mg/dL (7-18)
[2016-10-09 08:04] LABS: B-TYPE NATRIURETIC PEPTIDE 30 pg/mL (0-100)
[2016-10-09 08:13] LABS: ALANINE AMINOTRANSFERASE 22 U/L (12-78); ALBUMIN 3.7 g/dL (3.4-5.0); ASPARTATE AMINOTRANSFERASE 10 U/L (15-37); BILIRUBIN,TOTAL 0.6 mg/dL (0.1-1.0); CREATINE KINASE MB 1.8 ng/mL (0-5); CREATINE KINASE, TOTAL 141 U/L (39-308); TOTAL PROTEIN, SERUM 7.4 g/dL (6.4-8.2)
[2016-10-09] MEDS ORDERED: SODIUM CHLORIDE 0.9% 1,000 ML IV ONE (08:15)
[2016-10-09 08:29] VITALS: BP 108/67
== END 2016-10-09 08:58 | disposition home or self-care (01) ==
LOC: EMS 06:11
DX: S63.501A Unspecified sprain of right wrist, initial encounter (principal); S33.5XXA Sprain of ligaments of lumbar spine, initial encounter; M79.642 Pain in left hand; E11.9 Type 2 diabetes mellitus without complications; I10 Essential (primary) hypertension; E78.00 Pure hypercholesterolemia, unspecified; Z87.891 Personal history of nicotine dependence; Z79.4 Long term (current) use of insulin; W18.39XA Other fall on same level, initial encounter; Y93.89 Activity, other specified; Y92.89 Other specified places as the place of occurrence of the external cause; Y99.8 Other external cause status
CPT/HCPCS: 36415; 71010; 73120; 80053; 81003; 82550; 82553; 82962; 83880; 84484; 85025; 93005; 96372; 99285; J1885; J7030

== ENCOUNTER 2016-11-13 12:12 | Emergency (ER) | payer MEDICARE, OTHER ==
[~2016-11-13] VITALS: Ht 170.2 cm; Wt 84.1 kg
[2016-11-13 12:32] LABS: GLUCOSE,POINT OF CARE 111 MG/DL (70-110)
[2016-11-13] MEDS ORDERED: MECLIZINE HCL 25 MG TABLET PO ONE (13:45)
[2016-11-13] MEDS ORDERED: ONDANSETRON HCL 4 MG TABLET PO ONE (13:45)
[2016-11-13] MEDS ORDERED: ACETAMINOPHEN 500 MG TABLET PO ONE (13:45)
[2016-11-13 13:56] LABS: BASOPHILS % (AUTO) 0.7 % (0.0-2.0); EOSINOPHILS % (AUTO) 4.7 % (1.0-6.0); HEMATOCRIT 30.5 % (41-53); HEMOGLOBIN 10.6 g/dL (13.5-17.5); LYMPHOCYTES # (AUTO) 1.8 K/uL (1.0-4.8); LYMPHOCYTES % (AUTO) 37.4 % (22.0-44.0); MEAN CORPUSCULAR HEMOGLOBIN 31.7 pg (26.0-34.0); MEAN CORPUSCULAR HGB CONC 34.6 G/dL (31.0-37.0); MEAN CORPUSCULAR VOLUME 92 fL (80-100); MONOCYTES # (AUTO) 0.5 K/uL (0.1-1.0); MONOCYTES % (AUTO) 9.7 % (2.0-9.0); NEUTROPHILS # (AUTO) 2.3 K/uL (1.8-7.7); NEUTROPHILS % (AUTO) 47.5 % (40.0-70.0); PLATELET COUNT (AUTO) 183 K/uL (150-450); RED BLOOD CELL COUNT(AUTO) 3.33 MIL/uL (4.50-5.90); RED CELL DISTRIBUTION WIDTH 13.9 % (11.5-14.5); WHITE BLOOD COUNT (AUTO) 4.9 K/uL (4.5-11.0)
[2016-11-13 14:06] LABS: CALCIUM, TOTAL 8.6 mg/dL (8.8-10.5); CREATININE 1.25 mg/dL (0.60-1.30); POTASSIUM 4.9 mmol/L (3.5-5.1)
[2016-11-13 14:11] LABS: ALBUMIN 3.9 g/dL (3.4-5.0); BILIRUBIN,TOTAL 0.5 mg/dL (0.1-1.0); TOTAL PROTEIN, SERUM 7.6 g/dL (6.4-8.2)
[2016-11-13 15:00] VITALS: BP 118/85
== END 2016-11-13 16:02 | disposition home or self-care (01) ==
LOC: EMS 12:14
DX: S83.91XA Sprain of unspecified site of right knee, initial encounter (principal); E11.42 Type 2 diabetes mellitus with diabetic polyneuropathy; E78.00 Pure hypercholesterolemia, unspecified; I10 Essential (primary) hypertension; Z79.4 Long term (current) use of insulin; X58.XXXA Exposure to other specified factors, initial encounter; Y93.89 Activity, other specified; Y92.89 Other specified places as the place of occurrence of the external cause; Y99.8 Other external cause status
CPT/HCPCS: 29505; 36415; 70450; 80053; 82962; 84484; 85025; 93005; 99285; Q0162

== ENCOUNTER 2017-01-10 09:03 | Emergency (ER) | payer MEDICARE, OTHER ==
[~2017-01-10] VITALS: Ht 170.2 cm; Wt 81.8 kg
[2017-01-10 09:12] LABS: GLUCOSE,POINT OF CARE 217 MG/DL (70-110)
[2017-01-10 10:00] LABS: BASOPHILS % (AUTO) 0.6 % (0.0-2.0); EOSINOPHILS % (AUTO) 4.7 % (1.0-6.0); HEMATOCRIT 36.8 % (41-53); HEMOGLOBIN 12.9 g/dL (13.5-17.5); LYMPHOCYTES # (AUTO) 1.8 K/uL (1.0-4.8); MEAN CORPUSCULAR HEMOGLOBIN 32.3 pg (26.0-34.0); MEAN CORPUSCULAR HGB CONC 35.1 G/dL (31.0-37.0); MEAN CORPUSCULAR VOLUME 92 fL (80-100); MONOCYTES # (AUTO) 0.5 K/uL (0.1-1.0); MONOCYTES % (AUTO) 6.6 % (2.0-9.0); NEUTROPHILS # (AUTO) 4.4 K/uL (1.8-7.7); NEUTROPHILS % (AUTO) 62.1 % (40.0-70.0); PLATELET COUNT (AUTO) 211 K/uL (150-450); RED CELL DISTRIBUTION WIDTH 12.7 % (11.5-14.5)
[2017-01-10 10:10] LABS: CREATININE 1.68 mg/dL (0.60-1.30); POTASSIUM 4.4 mmol/L (3.5-5.1)
[2017-01-10 10:17] LABS: ALBUMIN 3.7 g/dL (3.4-5.0); BILIRUBIN,TOTAL 0.4 mg/dL (0.1-1.0); TOTAL PROTEIN, SERUM 7.9 g/dL (6.4-8.2)
[2017-01-10] MEDS ORDERED: MECLIZINE HCL 25 MG TABLET PO ONE (11:00)
[2017-01-10] MEDS ORDERED: SODIUM CHLORIDE 0.9% 500 ML IV ONE (11:00)
[2017-01-10] MEDS ORDERED: KETOROLAC TROMETHAMINE 30 MG/ML VIAL IVP ONE (11:45)
[2017-01-10 13:06] VITALS: BP 126/88
== END 2017-01-10 14:12 | disposition home or self-care (01) ==
LOC: EMS 09:07
DX: R07.89 Other chest pain (principal); E78.00 Pure hypercholesterolemia, unspecified; F32.9 Major depressive disorder, single episode, unspecified; F41.9 Anxiety disorder, unspecified; I10 Essential (primary) hypertension; Z79.4 Long term (current) use of insulin; W19.XXXA Unspecified fall, initial encounter; Y93.89 Activity, other specified; Y92.89 Other specified places as the place of occurrence of the external cause; Y99.8 Other external cause status
CPT/HCPCS: 36415; 71010; 80053; 82962; 84484; 85025; 93005; 96361; 96374; 99285; J1885; J7040

== ENCOUNTER 2017-01-14 12:38 | Emergency (ER) | payer MEDICARE, OTHER ==
[~2017-01-14] VITALS: Ht 167.6 cm; Wt 86.4 kg
[~2017-01-14 12:38] MED LIST changes: -TRAM50TA4 PO
[2017-01-14] MEDS ORDERED: SODIUM CHLORIDE 0.9% 1,000 ML IV ONE ×2 (13:00→13:15)
[2017-01-14 13:08] LABS: GLUCOSE,POINT OF CARE 191 MG/DL (70-110)
[2017-01-14 13:18] LABS: BASOPHILS # (AUTO) 0.05 K/uL (0.00-0.20); BASOPHILS % (AUTO) 0.7 % (0.0-2.0); EOSINOPHILS # (AUTO) 0.37 K/uL (0.00-0.70); EOSINOPHILS % (AUTO) 5.08 % (1.0-6.0); HEMATOCRIT 38.1 % (41-53); HEMOGLOBIN 12.9 g/dL (13.5-17.5); LYMPHOCYTES # (AUTO) 2.3 K/uL (1.0-4.8); LYMPHOCYTES % (AUTO) 31.2 % (22.0-44.0); MEAN CORPUSCULAR HEMOGLOBIN 31.8 pg (26.0-34.0); MEAN CORPUSCULAR VOLUME 94 fL (80-100); MONOCYTES # (AUTO) 0.6 K/uL (0.1-1.0); MONOCYTES % (AUTO) 7.5 % (2.0-9.0); NEUTROPHILS % (AUTO) 55.5 % (40.0-70.0); PLATELET COUNT (AUTO) 201 K/uL (150-450); RED BLOOD CELL COUNT(AUTO) 4.07 MIL/uL (4.50-5.90); RED CELL DISTRIBUTION WIDTH 13.1 % (11.5-14.5); WHITE BLOOD COUNT (AUTO) 7.3 K/uL (4.5-11.0)
[2017-01-14 13:28] LABS: CREATININE 1.33 mg/dL (0.60-1.30); POTASSIUM 4.5 mmol/L (3.5-5.1)
[2017-01-14 13:34] LABS: ALBUMIN 3.8 g/dL (3.4-5.0); BILIRUBIN,TOTAL 0.3 mg/dL (0.1-1.0); TOTAL PROTEIN, SERUM 7.8 g/dL (6.4-8.2)
[2017-01-14 13:58] VITALS: BP 124/81
== END 2017-01-14 14:17 | disposition home or self-care (01) ==
LOC: EMS 12:39
DX: I95.1 Orthostatic hypotension (principal); E11.9 Type 2 diabetes mellitus without complications; E78.00 Pure hypercholesterolemia, unspecified; I10 Essential (primary) hypertension; E86.0 Dehydration; Z79.4 Long term (current) use of insulin
CPT/HCPCS: 36415; 71010; 80053; 82948; 82962; 83690; 84484; 85025; 93005; 96360; 99285; J7030

== ENCOUNTER 2017-01-26 16:36 | Emergency (ER) | payer MEDICARE, OTHER ==
[~2017-01-26] VITALS: Ht 167.6 cm; Wt 83.5 kg
[2017-01-26 17:07] LABS: GLUCOSE,POINT OF CARE 183 MG/DL (70-110)
[2017-01-26] MEDS ORDERED: GABA-531 PO (17:21)
[2017-01-26] MEDS ORDERED: PREG25 PO (17:21)
[2017-01-26] MEDS ORDERED: INSLAN SQ (17:21)
[2017-01-26 17:29] LABS: BASOPHILS # (AUTO) 0.05 K/uL (0.00-0.20); BASOPHILS % (AUTO) 0.7 % (0.0-2.0); EOSINOPHILS # (AUTO) 0.29 K/uL (0.00-0.70); EOSINOPHILS % (AUTO) 4.46 % (1.0-6.0); HEMATOCRIT 36.1 % (41-53); HEMOGLOBIN 12.4 g/dL (13.5-17.5); LYMPHOCYTES # (AUTO) 1.9 K/uL (1.0-4.8); LYMPHOCYTES % (AUTO) 28.7 % (22.0-44.0); MEAN CORPUSCULAR HEMOGLOBIN 31.6 pg (26.0-34.0); MEAN CORPUSCULAR HGB CONC 34.3 G/dL (31.0-37.0); MEAN CORPUSCULAR VOLUME 92 fL (80-100); MONOCYTES # (AUTO) 0.5 K/uL (0.1-1.0); NEUTROPHILS # (AUTO) 3.8 K/uL (1.8-7.7); NEUTROPHILS % (AUTO) 58.1 % (40.0-70.0); PLATELET COUNT (AUTO) 217 K/uL (150-450); RED BLOOD CELL COUNT(AUTO) 3.92 MIL/uL (4.50-5.90); WHITE BLOOD COUNT (AUTO) 6.6 K/uL (4.5-11.0)
[2017-01-26 17:42] LABS: CALCIUM, TOTAL 8.7 mg/dL (8.8-10.5); CREATININE 1.6 mg/dL (0.60-1.30); POTASSIUM 4.8 mmol/L (3.5-5.1)
[2017-01-26 17:49] LABS: ALBUMIN 3.6 g/dL (3.4-5.0); BILIRUBIN,TOTAL 0.2 mg/dL (0.1-1.0); TOTAL PROTEIN, SERUM 7.4 g/dL (6.4-8.2)
[2017-01-26 18:23] LABS: GLUCOSE, URINE (UA) 250 mg/dL (NEGATIVE); KETONES,URINE TRACE mg/dL (NEGATIVE); LEUKOCYTE ESTERASE ,URINE NEGATIVE (NEGATIVE); OCCULT BLOOD,URINE TRACE (NEGATIVE); PROTEIN,URINE SEE CONFIRM (NEGATIVE)
[2017-01-26] MEDS ORDERED: SODIUM CHLORIDE 0.9% 1,000 ML IV ONE (18:45)
[2017-01-26 18:50] LABS: ADD UA MICROSCOPIC YES; APPEARANCE,URINE HAZY (CLEAR)
[2017-01-26 18:51] LABS: RBC,URINE 0-2 /HPF (0-2); SULFOSALICYLIC ACID,URINE 3+ (Negative); WBC,URINE 0-2 /HPF (0-5)
[2017-01-26 19:52] VITALS: BP 110/71
== END 2017-01-26 20:04 | disposition home or self-care (01) ==
LOC: EMS 16:38
DX: E86.0 Dehydration (principal); I95.9 Hypotension, unspecified; E11.9 Type 2 diabetes mellitus without complications; E78.00 Pure hypercholesterolemia, unspecified; I10 Essential (primary) hypertension; Z79.4 Long term (current) use of insulin
CPT/HCPCS: 36415; 80053; 81001; 82962; 85025; 93005; 99285; J7030

== ENCOUNTER 2017-02-03 10:49 | Emergency (ER) | payer MEDICARE, OTHER ==
[~2017-02-03] VITALS: Ht 170.2 cm; Wt 88.2 kg
[~2017-02-03 10:49] MED LIST changes: +PREG25 PO
[2017-02-03] MEDS ORDERED: SODIUM CHLORIDE 0.9% 1,000 ML IV ONE ×2 (11:30→13:00)
[2017-02-03 11:38] LABS: GLUCOSE,POINT OF CARE 209 MG/DL (70-110)
[2017-02-03 11:41] LABS: BASOPHILS # (AUTO) 0.04 K/uL (0.00-0.20); BASOPHILS % (AUTO) 0.5 % (0.0-2.0); EOSINOPHILS # (AUTO) 0.33 K/uL (0.00-0.70); HEMOGLOBIN 12.8 g/dL (13.5-17.5); LYMPHOCYTES # (AUTO) 1.7 K/uL (1.0-4.8); LYMPHOCYTES % (AUTO) 22.4 % (22.0-44.0); MEAN CORPUSCULAR HEMOGLOBIN 31.3 pg (26.0-34.0); MEAN CORPUSCULAR HGB CONC 33.7 G/dL (31.0-37.0); MEAN CORPUSCULAR VOLUME 93 fL (80-100); MONOCYTES # (AUTO) 0.7 K/uL (0.1-1.0); MONOCYTES % (AUTO) 8.9 % (2.0-9.0); NEUTROPHILS # (AUTO) 4.7 K/uL (1.8-7.7); NEUTROPHILS % (AUTO) 63.8 % (40.0-70.0); PLATELET COUNT (AUTO) 199 K/uL (150-450); RED BLOOD CELL COUNT(AUTO) 4.08 MIL/uL (4.50-5.90); RED CELL DISTRIBUTION WIDTH 12.9 % (11.5-14.5)
[2017-02-03 12:01] LABS: ANION GAP 10 mmol/L (8-16); CALCIUM, TOTAL 8.9 mg/dL (8.8-10.5); CARBON DIOXIDE 26 mmol/L (22-29); CHLORIDE 102 mmol/L (98-107); CREATININE 1.45 mg/dL (0.60-1.30); GLOMERULAR FILTR. RATE CALC 50 mL/min (>60); GLUCOSE,RANDOM 219 mg/dL (70-110); POTASSIUM 4.3 mmol/L (3.5-5.1); SODIUM SERUM 138 mmol/L (136-145); UREA NITROGEN, BLOOD 35 mg/dL (7-18)
[2017-02-03 12:08] LABS: ALANINE AMINOTRANSFERASE 30 U/L (12-78); ALBUMIN 3.7 g/dL (3.4-5.0); ALKALINE PHOSPHATASE 116 U/L (46-116); ASPARTATE AMINOTRANSFERASE 9 U/L (15-37); BILIRUBIN,TOTAL 0.5 mg/dL (0.1-1.0); LIPASE 121 U/L (73-393); TOTAL PROTEIN, SERUM 7.6 g/dL (6.4-8.2)
[2017-02-03] MEDS ORDERED: MIDO5TAB23 PO (12:52)
[2017-02-03] MEDS ORDERED: OMEP20 PO (12:52)
[2017-02-03] MEDS ORDERED: ZOLP10TA7 PO (12:52)
[2017-02-03] MEDS ORDERED: DIVA500T35 PO (12:52)
[2017-02-03] MEDS ORDERED: CITA20TA9 PO (12:52)
[2017-02-03] MEDS ORDERED: RISP1 PO (12:52)
[2017-02-03] MEDS ORDERED: DIPH-654 PO (12:52)
[2017-02-03] MEDS ORDERED: BACL10TA PO (12:52)
[2017-02-03] MEDS ORDERED: ACETAMINOPHEN 325 MG TABLET PO ONE (15:45)
[2017-02-03 17:09] VITALS: BP 144/84
== END 2017-02-03 17:11 | disposition home or self-care (01) ==
LOC: EMS 10:52
DX: R55 Syncope and collapse (principal); I95.9 Hypotension, unspecified; E11.9 Type 2 diabetes mellitus without complications; F32.9 Major depressive disorder, single episode, unspecified; E78.00 Pure hypercholesterolemia, unspecified; I10 Essential (primary) hypertension; Z79.4 Long term (current) use of insulin; Z79.899 Other long term (current) drug therapy; Z87.891 Personal history of nicotine dependence
CPT/HCPCS: 36415; 71010; 80053; 82948; 82962; 83690; 84484; 85025; 93005; 96360; 96361; 99285; G0480; J7030

== ENCOUNTER 2017-03-10 12:05 | Emergency (ER) | payer MEDICARE, OTHER ==
[~2017-03-10] VITALS: Ht 167.6 cm; Wt 88.2 kg
[~2017-03-10 12:05] MED LIST changes: +BACL10TA PO; +CITA20TA9 PO; +DIPH-654 PO; +DIVA500T35 PO; +MIDO5TAB23 PO; +OMEP20 PO; +RISP1 PO; +ZOLP10TA7 PO
[2017-03-10 12:52] LABS: GLUCOSE,POINT OF CARE 187 MG/DL (70-110)
[2017-03-10 15:41] VITALS: BP 110/76
== END 2017-03-10 15:47 | disposition home or self-care (01) ==
LOC: EMS 12:07
DX: M25.572 Pain in left ankle and joints of left foot (principal); E11.9 Type 2 diabetes mellitus without complications; E78.00 Pure hypercholesterolemia, unspecified; I10 Essential (primary) hypertension; Z79.4 Long term (current) use of insulin
CPT/HCPCS: 29515; 82962; 99284

== ENCOUNTER 2017-05-06 15:27 | Emergency (ER) | payer MEDICARE, OTHER ==
[~2017-05-06] VITALS: Ht 170.2 cm; Wt 86.4 kg
[2017-05-06 15:41] LABS: GLUCOSE,POINT OF CARE 190 MG/DL (70-110)
[2017-05-06] MEDS ORDERED: ACETAMINOPHEN 325 MG TABLET PO ONE (16:30)
[2017-05-06] MEDS ORDERED: GABAPENTIN 100 MG CAPSULE PO ONE (16:30)
[2017-05-06 16:38] LABS: BASOPHILS % (AUTO) 0.5 % (0.0-2.0); EOSINOPHILS % (AUTO) 4.3 % (1.0-6.0); HEMATOCRIT 33.3 % (41-53); HEMOGLOBIN 11.7 g/dL (13.5-17.5); LYMPHOCYTES # (AUTO) 1.5 K/uL (1.0-4.8); LYMPHOCYTES % (AUTO) 18.9 % (22.0-44.0); MEAN CORPUSCULAR HEMOGLOBIN 31.2 pg (26.0-34.0); MEAN CORPUSCULAR HGB CONC 35.1 G/dL (31.0-37.0); MEAN CORPUSCULAR VOLUME 89 fL (80-100); MONOCYTES # (AUTO) 0.9 K/uL (0.1-1.0); MONOCYTES % (AUTO) 11.5 % (2.0-9.0); NEUTROPHILS % (AUTO) 64.8 % (40.0-70.0); PLATELET COUNT (AUTO) 254 K/uL (150-450); RED BLOOD CELL COUNT(AUTO) 3.75 MIL/uL (4.50-5.90); RED CELL DISTRIBUTION WIDTH 13.4 % (11.5-14.5)
[2017-05-06 16:41] LABS: CALCIUM, TOTAL 9.4 mg/dL (8.8-10.5); CREATININE 2.08 mg/dL (0.60-1.30); POTASSIUM 4.1 mmol/L (3.5-5.1)
[2017-05-06 16:44] LABS: C-REACTIVE PROTEIN QUANT 7.11 mg/dL (0.00-0.30)
[2017-05-06] MEDS ORDERED: CEPHALEXIN MONOHYDRATE 500 MG CAPSULE PO ONE (18:00)
[2017-05-06] MEDS ORDERED: SULFAMETHOX/TRIMETH DS 800-160 MG/TABLET PO ONE (18:00)
[2017-05-06] MEDS ORDERED: SODIUM CHLORIDE 0.9% 1,000 ML IV ONE (18:00)
[2017-05-06 18:21] LABS: ERYTHROCYTE SEDIMENTATION RATE 95 MM/HR (0-15)
[2017-05-06 19:29] VITALS: BP 133/73
== END 2017-05-06 19:31 | disposition home or self-care (01) ==
LOC: EMS 15:28
DX: E11.621 Type 2 diabetes mellitus with foot ulcer (principal); L08.9 Local infection of the skin and subcutaneous tissue, unspecified; E11.40 Type 2 diabetes mellitus with diabetic neuropathy, unspecified; N17.9 Acute kidney failure, unspecified; I10 Essential (primary) hypertension; E78.00 Pure hypercholesterolemia, unspecified; Z79.4 Long term (current) use of insulin
CPT/HCPCS: 36415; 73630; 80048; 82962; 85025; 85651; 86140; 96360; 99285; J7030

== ENCOUNTER → 2017-06-06 | Outpatient (CLI) | payer MEDICARE, OTHER ==
[~2017-06-06] MED LIST changes: +CITA-106 PO; -CITA20TA9 PO; -METF500T4 PO; +METF500T6 PO
[2017-06-06 15:57] LABS: EOSINOPHILS % (AUTO) 7.9 % (1.0-6.0); HEMATOCRIT 35.9 % (41-53); HEMOGLOBIN 12.2 g/dL (13.5-17.5); LYMPHOCYTES % (AUTO) 36.2 % (22.0-44.0); MEAN CORPUSCULAR HEMOGLOBIN 30.9 pg (26.0-34.0); MEAN CORPUSCULAR HGB CONC 33.9 G/dL (31.0-37.0); MEAN CORPUSCULAR VOLUME 91 fL (80-100); MONOCYTES # (AUTO) 0.6 K/uL (0.1-1.0); MONOCYTES % (AUTO) 10.2 % (2.0-9.0); NEUTROPHILS # (AUTO) 2.5 K/uL (1.8-7.7); NEUTROPHILS % (AUTO) 44.7 % (40.0-70.0); PLATELET COUNT (AUTO) 211 K/uL (150-450); RED BLOOD CELL COUNT(AUTO) 3.93 MIL/uL (4.50-5.90); RED CELL DISTRIBUTION WIDTH 14.1 % (11.5-14.5)
[2017-06-06 18:08] LABS: ERYTHROCYTE SEDIMENTATION RATE 38 MM/HR (0-15)
== END | disposition home or self-care (01) ==
LOC: MSR 15:17
PROVIDERS: ATTEND Podiatrist Foot & Ankle Surgery
DX: M79.89 Other specified soft tissue disorders (principal); L97.511 Non-pressure chronic ulcer of other part of right foot limited to breakdown of skin
CPT/HCPCS: 85651

== ENCOUNTER → 2017-07-12 | Outpatient (CLI) | payer MEDICARE, OTHER | END | disposition home or self-care (01) | LOC: RADPV 09:24 | PROVIDERS: ATTEND Hospitalist | DX: N40.0 Benign prostatic hyperplasia without lower urinary tract symptoms (principal); E11.21 Type 2 diabetes mellitus with diabetic nephropathy | CPT/HCPCS: 76770 ==

== ENCOUNTER → 2017-09-26 | Outpatient (CLI) | payer MEDICARE, OTHER ==
[~2017-09-26] MED LIST changes: +DIVA-78 PO; -DIVA500T35 PO; -METF500T6 PO; -PREG25 PO; -ZOLP10TA7 PO
== END | disposition home or self-care (01) ==
LOC: RADPV 10:25
PROVIDERS: ATTEND Podiatrist Foot & Ankle Surgery
DX: L97.511 Non-pressure chronic ulcer of other part of right foot limited to breakdown of skin (principal); L97.521 Non-pressure chronic ulcer of other part of left foot limited to breakdown of skin; M25.474 Effusion, right foot; E78.00 Pure hypercholesterolemia, unspecified; I10 Essential (primary) hypertension; E11.9 Type 2 diabetes mellitus without complications; Z89.431 Acquired absence of right foot

== ENCOUNTER → 2017-09-26 | Outpatient (CLI) | payer MEDICARE, OTHER ==
[2017-09-26 11:09] LABS: BASOPHILS % (AUTO) 0.8 % (0.0-2.0); EOSINOPHILS % (AUTO) 7.8 % (1.0-6.0); HEMATOCRIT 34.3 % (41-53); HEMOGLOBIN 11.7 g/dL (13.5-17.5); LYMPHOCYTES # (AUTO) 1.5 K/uL (1.0-4.8); LYMPHOCYTES % (AUTO) 26.9 % (22.0-44.0); MEAN CORPUSCULAR HEMOGLOBIN 31.4 pg (26.0-34.0); MEAN CORPUSCULAR HGB CONC 34.2 G/dL (31.0-37.0); MEAN CORPUSCULAR VOLUME 92 fL (80-100); MONOCYTES # (AUTO) 0.5 K/uL (0.1-1.0); MONOCYTES % (AUTO) 9.5 % (2.0-9.0); PLATELET COUNT (AUTO) 205 K/uL (150-450); RED BLOOD CELL COUNT(AUTO) 3.74 MIL/uL (4.50-5.90); RED CELL DISTRIBUTION WIDTH 12.9 % (11.5-14.5)
[2017-09-26 11:39] LABS: APPEARANCE,URINE CLEAR (CLEAR); BILIRUBIN,URINE NEGATIVE (NEGATIVE); GLUCOSE, URINE (UA) 100 mg/dL (NEGATIVE); KETONES,URINE NEGATIVE (NEGATIVE); LEUKOCYTE ESTERASE ,URINE NEGATIVE (NEGATIVE); NITRATE,URINE NEGATIVE (NEGATIVE); OCCULT BLOOD,URINE TRACE (NEGATIVE); PH,URINE 5.5 (5.0-8.0); PROTEIN,URINE POS 1+ (NEGATIVE)
[2017-09-26 11:51] LABS: BACTERIA,URINE Rare /HPF (None Seen); SQUAMOUS EPITHELIAL CELL,UR Rare /LPF (None Seen)
[2017-09-26 11:52] LABS: ALBUMIN 3.5 g/dL (3.4-5.0); CALCIUM, TOTAL 8.6 mg/dL (8.8-10.5); CREATININE 1.27 mg/dL (0.60-1.30); PHOSPHORUS 3.7 mg/dL (2.5-4.9); POTASSIUM 4.6 mmol/L (3.5-5.1)
[2017-09-26 13:01] LABS: CREATININE,URINE RANDOM 215.1 mg/dL (30.0-125.0); PROTEIN,URINE RANDOM 66 mg/dL (0-11.9)
== END | disposition home or self-care (01) ==
LOC: LABPV 10:23
PROVIDERS: ATTEND Hospitalist
DX: E87.5 Hyperkalemia (principal); R80.9 Proteinuria, unspecified; N17.9 Acute kidney failure, unspecified; E78.00 Pure hypercholesterolemia, unspecified; I10 Essential (primary) hypertension; E11.9 Type 2 diabetes mellitus without complications; F41.9 Anxiety disorder, unspecified
CPT/HCPCS: 82570; 84156

== ENCOUNTER 2017-10-06 11:24 | Emergency (ER) | payer MEDICARE, OTHER ==
[~2017-10-06] VITALS: Ht 167.6 cm; Wt 88.2 kg
[2017-10-06 11:38] LABS: GLUCOSE,POINT OF CARE 140 MG/DL (70-110)
[2017-10-06] MEDS ORDERED: KETOROLAC TROMETHAMINE 10 MG TABLET PO ONE (12:15)
[2017-10-06] MEDS ORDERED: MORPHINE SULFATE 4 MG/ML SYRINGE IVP ONE (15:45)
[2017-10-06 16:17] LABS: BASOPHILS % (AUTO) 0.6 % (0.0-2.0); EOSINOPHILS % (AUTO) 2.2 % (1.0-6.0); HEMOGLOBIN 11.1 g/dL (13.5-17.5); LYMPHOCYTES # (AUTO) 1.1 K/uL (1.0-4.8); MEAN CORPUSCULAR HEMOGLOBIN 31.4 pg (26.0-34.0); MEAN CORPUSCULAR HGB CONC 34.7 G/dL (31.0-37.0); MEAN CORPUSCULAR VOLUME 91 fL (80-100); MONOCYTES # (AUTO) 0.8 K/uL (0.1-1.0); MONOCYTES % (AUTO) 11.6 % (2.0-9.0); NEUTROPHILS # (AUTO) 4.7 K/uL (1.8-7.7); NEUTROPHILS % (AUTO) 69.6 % (40.0-70.0); PLATELET COUNT (AUTO) 207 K/uL (150-450); RED BLOOD CELL COUNT(AUTO) 3.53 MIL/uL (4.50-5.90); RED CELL DISTRIBUTION WIDTH 12.7 % (11.5-14.5)
[2017-10-06 16:33] LABS: CALCIUM, TOTAL 8.8 mg/dL (8.8-10.5); CREATININE 1.37 mg/dL (0.60-1.30); POTASSIUM 5.1 mmol/L (3.5-5.1)
[2017-10-06 16:39] LABS: ALBUMIN 3.2 g/dL (3.4-5.0); BILIRUBIN,TOTAL 1.1 mg/dL (0.1-1.0); TOTAL PROTEIN, SERUM 7.3 g/dL (6.4-8.2)
[2017-10-06 16:45] LABS: INR 1.1 (0.9-1.1); PROTHROMBIN TIME 11.3 SEC (9.4-11.6)
[2017-10-06 17:22] VITALS: BP 113/73
== END 2017-10-06 17:36 | disposition home or self-care (01) ==
LOC: EMS 11:25
DX: S92.312A Displaced fracture of first metatarsal bone, left foot, initial encounter for closed fracture (principal); S92.322A Displaced fracture of second metatarsal bone, left foot, initial encounter for closed fracture; S92.332A Displaced fracture of third metatarsal bone, left foot, initial encounter for closed fracture; I25.10 Atherosclerotic heart disease of native coronary artery without angina pectoris; E11.9 Type 2 diabetes mellitus without complications; E78.00 Pure hypercholesterolemia, unspecified; I10 Essential (primary) hypertension; F41.9 Anxiety disorder, unspecified; Z87.891 Personal history of nicotine dependence; Z79.4 Long term (current) use of insulin; W01.0XXA Fall on same level from slipping, tripping and stumbling without subsequent striking against object, initial encounter; Y93.89 Activity, other specified; Y92.89 Other specified places as the place of occurrence of the external cause; Y99.8 Other external cause status
CPT/HCPCS: 29515; 36415; 73630; 80053; 82962; 85025; 85610; 85730; 96374; 99285; J2270; 99284

== ENCOUNTER 2017-10-11 08:57 | Emergency (ER) | payer MEDICARE, OTHER ==
[~2017-10-11] VITALS: Ht 167.6 cm; Wt 88.6 kg
[2017-10-11 09:03] VITALS: BP 92/63
[2017-10-11 09:10] LABS: GLUCOSE,POINT OF CARE 283 MG/DL (70-110)
== END 2017-10-11 11:18 | disposition home or self-care (01) ==
LOC: EMS 08:58
DX: S92.312D Displaced fracture of first metatarsal bone, left foot, subsequent encounter for fracture with routine healing (principal); S92.322D Displaced fracture of second metatarsal bone, left foot, subsequent encounter for fracture with routine healing; S92.332D Displaced fracture of third metatarsal bone, left foot, subsequent encounter for fracture with routine healing; E11.40 Type 2 diabetes mellitus with diabetic neuropathy, unspecified; F41.9 Anxiety disorder, unspecified; F32.9 Major depressive disorder, single episode, unspecified; I25.10 Atherosclerotic heart disease of native coronary artery without angina pectoris; E78.00 Pure hypercholesterolemia, unspecified; I10 Essential (primary) hypertension; I95.9 Hypotension, unspecified; Z87.891 Personal history of nicotine dependence; Z79.4 Long term (current) use of insulin; Z79.899 Other long term (current) drug therapy; W19.XXXD Unspecified fall, subsequent encounter
CPT/HCPCS: 99282

== ENCOUNTER 2017-11-01 09:26 | Inpatient (IN) | payer MEDICARE, OTHER ==
[~2017-11-01] VITALS: Ht 167.6 cm; Wt 88.8 kg
[2017-11-01 09:44] LABS: GLUCOSE,POINT OF CARE 454 MG/DL (70-110)
[2017-11-01] MEDS ORDERED: SODIUM CHLORIDE 0.9% 1,000 ML IV ONE ×2 (10:30)
[2017-11-01] MEDS ORDERED: INSULIN REGULAR, HUMAN 100 UNITS/ML IVP ONE (10:30)
[2017-11-01] MEDS ORDERED: KETOROLAC TROMETHAMINE 30 MG/ML VIAL IVP ONE (11:30)
[2017-11-01 12:07] LABS: BASOPHILS % (AUTO) 0.8 % (0.0-2.0); EOSINOPHILS % (AUTO) 7.9 % (1.0-6.0); HEMOGLOBIN 12.1 g/dL (13.5-17.5); LYMPHOCYTES # (AUTO) 1.1 K/uL (1.0-4.8); LYMPHOCYTES % (AUTO) 15.8 % (22.0-44.0); MEAN CORPUSCULAR HEMOGLOBIN 31.3 pg (26.0-34.0); MEAN CORPUSCULAR HGB CONC 34.7 G/dL (31.0-37.0); MEAN CORPUSCULAR VOLUME 90 fL (80-100); MONOCYTES # (AUTO) 0.6 K/uL (0.1-1.0); MONOCYTES % (AUTO) 8.1 % (2.0-9.0); NEUTROPHILS # (AUTO) 4.6 K/uL (1.8-7.7); NEUTROPHILS % (AUTO) 67.4 % (40.0-70.0); PLATELET COUNT (AUTO) 291 K/uL (150-450); RED BLOOD CELL COUNT(AUTO) 3.88 MIL/uL (4.50-5.90); RED CELL DISTRIBUTION WIDTH 12.8 % (11.5-14.5)
[2017-11-01 12:26] LABS: ANION GAP 7 mmol/L (8-16); CALCIUM, TOTAL 9.7 mg/dL (8.8-10.5); CARBON DIOXIDE 28 mmol/L (22-29); CHLORIDE 102 mmol/L (98-107); CREATININE 1.38 mg/dL (0.60-1.30); GLOMERULAR FILTR. RATE CALC 53 mL/min (>60); GLUCOSE,RANDOM 177 mg/dL (70-110); POTASSIUM 4.4 mmol/L (3.5-5.1); SODIUM SERUM 137 mmol/L (136-145); UREA NITROGEN, BLOOD 24 mg/dL (7-18)
[2017-11-01 12:39] LABS: ALANINE AMINOTRANSFERASE 22 U/L (12-78); ALBUMIN 3.4 g/dL (3.4-5.0); ALKALINE PHOSPHATASE 238 U/L (46-116); ASPARTATE AMINOTRANSFERASE 7 U/L (15-37); BILIRUBIN,TOTAL 0.4 mg/dL (0.1-1.0); C-REACTIVE PROTEIN QUANT 3.37 mg/dL (0.00-0.30); TOTAL PROTEIN, SERUM 8.5 g/dL (6.4-8.2)
[2017-11-01 12:57] LABS: LACTIC ACID 2.8 mmol/L (0.4-2.0)
[2017-11-01] MEDS ORDERED: SODIUM CHLORIDE 0.9% 2,500 ML IV ONE (13:15)
[2017-11-01 13:24] LABS: GLUCOSE,POINT OF CARE 164 MG/DL (70-110)
[2017-11-01] MEDS ORDERED: SODIUM CHLORIDE 0.9% 500 ML IV ONE (13:45)
[2017-11-01] MEDS ORDERED: VANCOMYCIN HCL 1 GM/D5% WATER 200 ML IV ONE (13:45)
[2017-11-01] MEDS ORDERED: PIPERACILLIN/TAZO 3.375 GM/D5W 50 ML IV ONE (14:00)
[2017-11-01] MEDS ORDERED: HYDROCODONE/ACETAMINOPHEN 5-325 MG TABLET PO ONE (16:00)
[2017-11-01] MEDS ORDERED: MAGNESIUM HYDROXIDE SUSPENSION 30 ML UDCUP PO PRN (16:45)
[2017-11-01] MEDS ORDERED: BISACODYL 10 MG RECTAL RECTAL SUPPOSITORY PR PRN (16:45)
[2017-11-01] MEDS ORDERED: ZOLPIDEM TARTRATE 5 MG TABLET PO PRN (16:45)
[2017-11-01] MEDS ORDERED: ACETAMINOPHEN 325 MG TABLET PO PRN (16:45)
[2017-11-01] MEDS ORDERED: ONDANSETRON HCL 4 MG/2 ML VIAL IVP PRN (16:45)
[2017-11-01 17:57] VITALS: BP 128/73
[2017-11-01 19:25] VITALS: BP 116/76
[2017-11-01] MEDS ORDERED: -PHARMACY VACCINE NOTE- MISC ONE (19:30)
[2017-11-01] MEDS: VANCOMYCIN HCL 1 GM/D5% WATER 200 ML IV SCH (20:52)
[2017-11-01] MEDS: MORPHINE SULFATE 2 MG/ML SYRINGE IVP PRN (20:53)
[2017-11-01] MEDS: DOCUSATE SODIUM 100 MG CAPSULE PO SCH (20:53)
[2017-11-01] MEDS: PIPERACILLIN/TAZO 3.375 GM/D5W 50 ML IV SCH (22:41)
[2017-11-01 23:35] VITALS: BP 119/62
[2017-11-02] MEDS: HEPARIN SODIUM,PORCINE 5,000 UNITS/ML VIAL SQ SCH ×3 (00:05→16:18)
[2017-11-02] MEDS ORDERED: DEXTROSE 50%-WATER 25 GM/50 ML SYRINGE IVP PRN (00:30)
[2017-11-02] MEDS: PIPERACILLIN/TAZO 3.375 GM/D5W 50 ML IV SCH (04:18)
[2017-11-02 04:26] VITALS: BP 117/71
[2017-11-02 05:04] LABS: GLUCOMETER DEV NAME(LOC) 6N 2D; GLUCOSE,POINT OF CARE 245 MG/DL (70-110)
[2017-11-02] MEDS: INSULIN LISPRO 100 UNITS/ML SQ PRN ×4 (05:11→21:09)
[2017-11-02 06:32] LABS: ANION GAP 6 mmol/L (8-16); CALCIUM, TOTAL 8.3 mg/dL (8.8-10.5); CARBON DIOXIDE 27 mmol/L (22-29); CHLORIDE 100 mmol/L (98-107); CREATININE 1.16 mg/dL (0.60-1.30); GLOMERULAR FILTR. RATE CALC > 60 mL/min (>60); GLUCOSE,RANDOM 238 mg/dL (70-110); POTASSIUM 4.9 mmol/L (3.5-5.1); SODIUM SERUM 133 mmol/L (136-145); UREA NITROGEN, BLOOD 21 mg/dL (7-18)
[2017-11-02] MEDS: VANCOMYCIN HCL 1 GM/D5% WATER 200 ML IV SCH (08:09)
[2017-11-02] MEDS: PANTOPRAZOLE SODIUM 40 MG DR TABLET PO SCH (08:10)
[2017-11-02] MEDS: DOCUSATE SODIUM 100 MG CAPSULE PO SCH ×2 (08:10→21:04)
[2017-11-02] MEDS: MORPHINE SULFATE 2 MG/ML SYRINGE IVP PRN (08:10)
[2017-11-02 08:19] VITALS: BP 131/83
[2017-11-02 11:20] VITALS: BP 122/68
[2017-11-02] MEDS: ASPIRIN 81 MG CHEWABLE TABLET PO SCH (11:30)
[2017-11-02] MEDS: HYDROCODONE/ACETAMINOPHEN 5-325 MG TABLET PO PRN ×2 (12:02→21:04)
[2017-11-02 12:09] LABS: GLUCOMETER DEV NAME(LOC) 6N 1E; GLUCOSE,POINT OF CARE 286 MG/DL (70-110)
[2017-11-02 15:19] VITALS: BP 92/58
[2017-11-02] MEDS ORDERED: VANCOMYCIN HCL 1.25 GM in DEXTROSE 5%-WATER 250 ML IV SCH (20:00)
[2017-11-02 20:40] VITALS: BP 105/68
[2017-11-02] MEDS ORDERED: INSULIN GLARGINE,HUM.REC.ANLOG 100 UNITS/ML SQ SCH (21:00)
[2017-11-02] MEDS: ATORVASTATIN CALCIUM 20 MG TABLET PO SCH (21:03)
[2017-11-02 21:43] LABS: GLUCOMETER DEV NAME(LOC) 6N 1E; GLUCOSE,POINT OF CARE 187 MG/DL (70-110)
[2017-11-03] MEDS: HYDROCODONE/ACETAMINOPHEN 5-325 MG TABLET PO PRN ×4 (00:35→21:46)
[2017-11-03] MEDS: HEPARIN SODIUM,PORCINE 5,000 UNITS/ML VIAL SQ SCH ×4 (00:35→23:38)
[2017-11-03 05:02] VITALS: BP 121/80
[2017-11-03] MEDS: INSULIN LISPRO 100 UNITS/ML SQ PRN ×4 (05:23→21:44)
[2017-11-03 05:41] LABS: GLUCOMETER DEV NAME(LOC) 6N 2D; GLUCOSE,POINT OF CARE 278 MG/DL (70-110)
[2017-11-03 05:41] LABS: GLUCOMETER DEV NAME(LOC) 6N 2D; GLUCOSE,POINT OF CARE 251 MG/DL (70-110)
[2017-11-03 05:53] LABS: CALCIUM, TOTAL 8.9 mg/dL (8.8-10.5); CREATININE 1.25 mg/dL (0.60-1.30); HEMOGLOBIN A1C 8.8 % (4.5-6.2); POTASSIUM 4.6 mmol/L (3.5-5.1)
[2017-11-03] MEDS: ASPIRIN 81 MG CHEWABLE TABLET PO SCH (08:52)
[2017-11-03] MEDS: DOCUSATE SODIUM 100 MG CAPSULE PO SCH ×2 (08:52→20:49)
[2017-11-03] MEDS: PANTOPRAZOLE SODIUM 40 MG DR TABLET PO SCH (08:52)
[2017-11-03] MEDS: MULTIVITAMINS WITH MINERALS, THERAPEUTIC TABLET PO SCH (08:52)
[2017-11-03 09:00] VITALS: BP 123/72
[2017-11-03 12:00] VITALS: BP 106/73
[2017-11-03 12:04] LABS: GLUCOMETER DEV NAME(LOC) 6N 1E; GLUCOSE,POINT OF CARE 247 MG/DL (70-110)
[2017-11-03 15:42] VITALS: BP 122/81
[2017-11-03 19:29] LABS: GLUCOMETER DEV NAME(LOC) 6N 2D; GLUCOSE,POINT OF CARE 238 MG/DL (70-110)
[2017-11-03 19:31] VITALS: BP 104/68
[2017-11-03] MEDS: ATORVASTATIN CALCIUM 20 MG TABLET PO SCH (20:49)
[2017-11-03] MEDS ORDERED: INSULIN GLARGINE,HUM.REC.ANLOG 100 UNITS/ML SQ SCH (21:00)
[2017-11-03 22:34] LABS: GLUCOMETER DEV NAME(LOC) 6N 1E; GLUCOSE,POINT OF CARE 250 MG/DL (70-110)
[2017-11-03 23:26] VITALS: BP 114/75
[2017-11-04 04:40] VITALS: BP 108/70
[2017-11-04] MEDS: HYDROCODONE/ACETAMINOPHEN 5-325 MG TABLET PO PRN ×3 (05:19→23:32)
[2017-11-04] MEDS: INSULIN LISPRO 100 UNITS/ML SQ PRN ×3 (06:03→16:53)
[2017-11-04 06:24] LABS: GLUCOMETER DEV NAME(LOC) 6N 1E; GLUCOSE,POINT OF CARE 160 MG/DL (70-110)
[2017-11-04 07:04] LABS: EOSINOPHILS % (AUTO) 8.9 % (1.0-6.0); HEMATOCRIT 33.4 % (41-53); HEMOGLOBIN 11.6 g/dL (13.5-17.5); LYMPHOCYTES # (AUTO) 1.7 K/uL (1.0-4.8); LYMPHOCYTES % (AUTO) 36.7 % (22.0-44.0); MEAN CORPUSCULAR HEMOGLOBIN 31.5 pg (26.0-34.0); MEAN CORPUSCULAR HGB CONC 34.8 G/dL (31.0-37.0); MEAN CORPUSCULAR VOLUME 90 fL (80-100); MONOCYTES # (AUTO) 0.3 K/uL (0.1-1.0); MONOCYTES % (AUTO) 7.5 % (2.0-9.0); NEUTROPHILS # (AUTO) 2.1 K/uL (1.8-7.7); NEUTROPHILS % (AUTO) 45.9 % (40.0-70.0); PLATELET COUNT (AUTO) 278 K/uL (150-450); RED BLOOD CELL COUNT(AUTO) 3.69 MIL/uL (4.50-5.90); RED CELL DISTRIBUTION WIDTH 12.4 % (11.5-14.5)
[2017-11-04 07:10] LABS: ANION GAP 8 mmol/L (8-16); CARBON DIOXIDE 29 mmol/L (22-29); CHLORIDE 100 mmol/L (98-107); CREATININE 1.15 mg/dL (0.60-1.30); GLUCOSE,RANDOM 179 mg/dL (70-110); POTASSIUM 4.2 mmol/L (3.5-5.1); SODIUM SERUM 137 mmol/L (136-145); UREA NITROGEN, BLOOD 14 mg/dL (7-18)
[2017-11-04 07:11] LABS: CALCIUM, TOTAL 8.8 mg/dL (8.8-10.5); GLOMERULAR FILTR. RATE CALC > 60 mL/min (>60)
[2017-11-04 07:24] VITALS: BP 102/67
[2017-11-04] MEDS: DOCUSATE SODIUM 100 MG CAPSULE PO SCH ×2 (08:09→20:16)
[2017-11-04] MEDS: PANTOPRAZOLE SODIUM 40 MG DR TABLET PO SCH (08:09)
[2017-11-04] MEDS: HEPARIN SODIUM,PORCINE 5,000 UNITS/ML VIAL SQ SCH ×3 (08:09→23:31)
[2017-11-04] MEDS: ASPIRIN 81 MG CHEWABLE TABLET PO SCH (08:09)
[2017-11-04] MEDS: MULTIVITAMINS WITH MINERALS, THERAPEUTIC TABLET PO SCH (08:10)
[2017-11-04 11:26] VITALS: BP 131/83
[2017-11-04 15:28] LABS: GLUCOMETER DEV NAME(LOC) 6N 2D; GLUCOSE,POINT OF CARE 248 MG/DL (70-110)
[2017-11-04 15:31] VITALS: BP 98/61
[2017-11-04 16:39] LABS: GLUCOMETER DEV NAME(LOC) 6N 1E; GLUCOSE,POINT OF CARE 214 MG/DL (70-110)
[2017-11-04 19:40] VITALS: BP 89/60
[2017-11-04] MEDS: ATORVASTATIN CALCIUM 20 MG TABLET PO SCH (20:16)
[2017-11-04] MEDS ORDERED: INSULIN GLARGINE,HUM.REC.ANLOG 100 UNITS/ML SQ SCH (21:00)
[2017-11-04 21:24] LABS: GLUCOMETER DEV NAME(LOC) 6N 2D; GLUCOSE,POINT OF CARE 265 MG/DL (70-110)
[2017-11-04 23:28] VITALS: BP 109/68
[2017-11-05 04:31] VITALS: BP 103/64
[2017-11-05] MEDS: HYDROCODONE/ACETAMINOPHEN 5-325 MG TABLET PO PRN (06:42)
[2017-11-05] MEDS: INSULIN LISPRO 100 UNITS/ML SQ PRN ×2 (06:45→11:24)
[2017-11-05 07:09] LABS: GLUCOMETER DEV NAME(LOC) 6N 1E; GLUCOSE,POINT OF CARE 237 MG/DL (70-110)
[2017-11-05 07:20] VITALS: BP 117/75
[2017-11-05] MEDS: ASPIRIN 81 MG CHEWABLE TABLET PO SCH (07:53)
[2017-11-05] MEDS: HEPARIN SODIUM,PORCINE 5,000 UNITS/ML VIAL SQ SCH (07:53)
[2017-11-05] MEDS: DOCUSATE SODIUM 100 MG CAPSULE PO SCH (07:53)
[2017-11-05] MEDS: MULTIVITAMINS WITH MINERALS, THERAPEUTIC TABLET PO SCH (07:53)
[2017-11-05] MEDS: PANTOPRAZOLE SODIUM 40 MG DR TABLET PO SCH (07:53)
[2017-11-05] MEDS ORDERED: INSLAN SQ (08:13)
[2017-11-05] MEDS ORDERED: ATOR20TA86 PO (08:14)
[2017-11-05] MEDS ORDERED: ASPI-1182 PO (08:14)
[2017-11-05] MEDS ORDERED: DOCU100C33 PO (08:15)
[2017-11-05] MEDS ORDERED: HYDR-309 PO (08:15)
[2017-11-05 11:10] VITALS: BP 109/65
[2017-11-05 13:44] LABS: GLUCOMETER DEV NAME(LOC) 6N 2D; GLUCOSE,POINT OF CARE 251 MG/DL (70-110)
== END 2017-11-05 13:15 | disposition home or self-care (01) | DRG 563 ==
LOC: EMS 09:27 → 6N 15:51
PROVIDERS: ADMIT Internal Medicine; ATTEND Internal Medicine
DX: S92.312A Displaced fracture of first metatarsal bone, left foot, initial encounter for closed fracture (principal); S92.332A Displaced fracture of third metatarsal bone, left foot, initial encounter for closed fracture; E11.65 Type 2 diabetes mellitus with hyperglycemia; S92.322A Displaced fracture of second metatarsal bone, left foot, initial encounter for closed fracture; E11.610 Type 2 diabetes mellitus with diabetic neuropathic arthropathy; F32.9 Major depressive disorder, single episode, unspecified; I25.10 Atherosclerotic heart disease of native coronary artery without angina pectoris; E78.00 Pure hypercholesterolemia, unspecified; I10 Essential (primary) hypertension; E11.69 Type 2 diabetes mellitus with other specified complication; E11.51 Type 2 diabetes mellitus with diabetic peripheral angiopathy without gangrene; M81.0 Age-related osteoporosis without current pathological fracture; W19.XXXA Unspecified fall, initial encounter; Z89.411 Acquired absence of right great toe; Z87.891 Personal history of nicotine dependence; Y93.89 Activity, other specified; Z91.14 Patient's other noncompliance with medication regimen; Y92.89 Other specified places as the place of occurrence of the external cause; Y99.8 Other external cause status; Z79.4 Long term (current) use of insulin; Z87.310 Personal history of (healed) osteoporosis fracture; N18.3 Chronic kidney disease, stage 3 (moderate)
CPT/HCPCS: 83036; 83605; 86140; 87040; 93971; 96365; 96366; 96368; 96375; 99285; J1644; J1815; J1885; J2270; J2543; J3370; J7030; J7040; J7060

== ENCOUNTER 2017-12-13 06:11 | Day surgery (SDC) | payer MEDICARE, OTHER ==
[~2017-12-13] VITALS: Ht 165.1 cm; Wt 88.0 kg
[~2017-12-13 06:11] MED LIST changes: +ASPI-1182 PO; +ATOR20TA86 PO; -BACL10TA PO; -CITA-106 PO; +CYCLOPENTOLATE HCL 1% 2 ML OPHTHALMIC SOLUTION ONE; -DIPH-654 PO; +DOCU100C33 PO; +HYDR-309 PO; -MIDO5TAB23 PO; +OFLOXACIN 0.3% 5 ML OPHTHALMIC SOLUTION ONE; +PHENYLEPHRINE HCL 2.5% 2 ML OPHTHALMIC SOLUTION ONE; +RINGERS SOLUTION,LACTATED 500 ML IV ONE; -RISP1 PO; +TETRACAINE HCL/PF 0.5% 4 ML OPHTHALMIC SOLUTION ONE; +TROPICAMIDE 1% 2 ML OPHTHALMIC SOLUTION ONE
[2017-12-13] MEDS ORDERED: FentaNYL CITRATE-PF 100 MCG/2 ML VIAL IVP ONE (06:12)
[2017-12-13] MEDS ORDERED: MIDAZOLAM HCL 2 MG/2 ML VIAL IVP ONE (06:12)
[2017-12-13] MEDS: PHENYLEPHRINE HCL 2.5% 2 ML OPHTHALMIC SOLUTION OD SCH ×3 (06:48→07:02)
[2017-12-13] MEDS: TROPICAMIDE 1% 2 ML OPHTHALMIC SOLUTION OD SCH ×3 (06:48→07:03)
[2017-12-13] MEDS: FLURBIPROFEN SODIUM 0.03% 2.5 ML OPHTHALMIC SOLUTION OD SCH ×3 (06:48→07:02)
[2017-12-13 06:49] LABS: GLUCOMETER DEV NAME(LOC) SDS 5; GLUCOSE,POINT OF CARE 130 MG/DL (70-110)
[2017-12-13] MEDS: OFLOXACIN 0.3% 5 ML OPHTHALMIC SOLUTION OD SCH ×3 (06:49→07:02)
[2017-12-13] MEDS: CYCLOPENTOLATE HCL 1% 2 ML OPHTHALMIC SOLUTION OD SCH ×3 (06:49→07:02)
[2017-12-13] MEDS ORDERED: LIDOCAINE/PF 1% 30 ML VIAL ONE (06:58)
[2017-12-13] MEDS ORDERED: LIDOCAINE/PF 1% 2 ML VIAL ONE (06:59)
[2017-12-13] MEDS ORDERED: TETRACAINE HCL/PF 0.5% 4 ML OPHTHALMIC SOLUTION OD ONE (07:00)
[2017-12-13] MEDS ORDERED: EPINEPHrine 1:1,000 [1 MG/ML] AMP ONE (07:03)
[2017-12-13] MEDS ORDERED: ACETYLCHOLINE CHLORIDE 1 EA INTRAOCULAR SOLUTION KIT IO ONE (07:04)
[2017-12-13] MEDS ORDERED: METF-960 PO (07:46)
[2017-12-13] MEDS ORDERED: PREG25 PO (07:46)
[2017-12-13] MEDS ORDERED: CITA10TA68 PO (07:46)
== END 2017-12-13 08:55 | disposition home or self-care (01) ==
LOC: SDS 06:11
PROVIDERS: ATTEND Ophthalmology
DX: E11.36 Type 2 diabetes mellitus with diabetic cataract (principal); H25.11 Age-related nuclear cataract, right eye; I10 Essential (primary) hypertension; E78.00 Pure hypercholesterolemia, unspecified; I25.10 Atherosclerotic heart disease of native coronary artery without angina pectoris; F32.9 Major depressive disorder, single episode, unspecified; F15.21 Other stimulant dependence, in remission; F41.8 Other specified anxiety disorders; Z79.82 Long term (current) use of aspirin; Z79.891 Long term (current) use of opiate analgesic; Z87.891 Personal history of nicotine dependence; Z79.4 Long term (current) use of insulin; Z79.84 Long term (current) use of oral hypoglycemic drugs; Z79.01 Long term (current) use of anticoagulants; Z98.890 Other specified postprocedural states; Z79.899 Other long term (current) drug therapy; Z82.3 Family history of stroke; Z82.49 Family history of ischemic heart disease and other diseases of the circulatory system; Z83.42 Family history of familial hypercholesterolemia; Z83.3 Family history of diabetes mellitus; Z80.9 Family history of malignant neoplasm, unspecified
CPT/HCPCS: 66984; 82962; 93005; C1780; J2250; J3010; J7120; J0171; J3490

== ENCOUNTER 2017-12-25 09:53 | Emergency (ER) | payer MEDICARE, OTHER ==
[~2017-12-25] VITALS: Ht 167.6 cm; Wt 88.0 kg
[~2017-12-25 09:53] MED LIST changes: +CITA10TA68 PO; -CYCLOPENTOLATE HCL 1% 2 ML OPHTHALMIC SOLUTION ONE; +METF-960 PO; -OFLOXACIN 0.3% 5 ML OPHTHALMIC SOLUTION ONE; -PHENYLEPHRINE HCL 2.5% 2 ML OPHTHALMIC SOLUTION ONE; +PREG25 PO; -RINGERS SOLUTION,LACTATED 500 ML IV ONE; -TETRACAINE HCL/PF 0.5% 4 ML OPHTHALMIC SOLUTION ONE; -TROPICAMIDE 1% 2 ML OPHTHALMIC SOLUTION ONE
[2017-12-25 10:23] LABS: GLUCOSE,POINT OF CARE 258 MG/DL (70-110)
[2017-12-25 11:38] LABS: GLUCOSE,POINT OF CARE 157 MG/DL (70-110)
[2017-12-25] MEDS ORDERED: HYDROCODONE/ACETAMINOPHEN 5-325 MG TABLET PO ONE (11:45)
[2017-12-25 12:49] VITALS: BP 129/85
== END 2017-12-25 12:54 | disposition home or self-care (01) ==
LOC: EMS 09:54
DX: S92.812D Other fracture of left foot, subsequent encounter for fracture with routine healing (principal); I10 Essential (primary) hypertension; E78.00 Pure hypercholesterolemia, unspecified; E11.9 Type 2 diabetes mellitus without complications; I25.10 Atherosclerotic heart disease of native coronary artery without angina pectoris; F41.9 Anxiety disorder, unspecified; Z87.891 Personal history of nicotine dependence; Z79.4 Long term (current) use of insulin; Z79.82 Long term (current) use of aspirin; Z79.899 Other long term (current) drug therapy; X58.XXXD Exposure to other specified factors, subsequent encounter

== ENCOUNTER → 2018-01-02 | Outpatient (CLI) | payer MEDICARE, OTHER ==
[2018-01-02 12:34] LABS: BASOPHILS % (AUTO) 0.8 % (0.0-2.0); EOSINOPHILS % (AUTO) 7.1 % (1.0-6.0); HEMATOCRIT 34.9 % (41-53); HEMOGLOBIN 11.8 g/dL (13.5-17.5); LYMPHOCYTES # (AUTO) 1.5 K/uL (1.0-4.8); LYMPHOCYTES % (AUTO) 20.5 % (22.0-44.0); MEAN CORPUSCULAR HEMOGLOBIN 31.2 pg (26.0-34.0); MEAN CORPUSCULAR VOLUME 92 fL (80-100); MONOCYTES # (AUTO) 0.6 K/uL (0.1-1.0); MONOCYTES % (AUTO) 8.3 % (2.0-9.0); NEUTROPHILS # (AUTO) 4.6 K/uL (1.8-7.7); NEUTROPHILS % (AUTO) 63.3 % (40.0-70.0); PLATELET COUNT (AUTO) 231 K/uL (150-450); RED BLOOD CELL COUNT(AUTO) 3.79 MIL/uL (4.50-5.90); RED CELL DISTRIBUTION WIDTH 13.6 % (11.5-14.5)
[2018-01-02 13:38] LABS: ERYTHROCYTE SEDIMENTATION RATE 33 MM/HR (0-15)
== END | disposition home or self-care (01) ==
LOC: MSR 11:41
PROVIDERS: ATTEND Podiatrist Foot & Ankle Surgery
DX: M79.89 Other specified soft tissue disorders (principal); B99.9 Unspecified infectious disease; M14.671 Charcot's joint, right ankle and foot; Z89.411 Acquired absence of right great toe
CPT/HCPCS: 85651

== ENCOUNTER → 2018-01-03 | Outpatient (CLI) | payer MEDICARE, OTHER ==
[2018-01-03 15:13] LABS: BASOPHILS % (AUTO) 0.9 % (0.0-2.0); EOSINOPHILS % (AUTO) 7.5 % (1.0-6.0); HEMATOCRIT 34.1 % (41-53); HEMOGLOBIN 11.6 g/dL (13.5-17.5); LYMPHOCYTES # (AUTO) 1.4 K/uL (1.0-4.8); LYMPHOCYTES % (AUTO) 23.7 % (22.0-44.0); MEAN CORPUSCULAR HEMOGLOBIN 31.5 pg (26.0-34.0); MEAN CORPUSCULAR HGB CONC 34.2 G/dL (31.0-37.0); MEAN CORPUSCULAR VOLUME 92 fL (80-100); MONOCYTES # (AUTO) 0.5 K/uL (0.1-1.0); MONOCYTES % (AUTO) 8.8 % (2.0-9.0); NEUTROPHILS # (AUTO) 3.4 K/uL (1.8-7.7); NEUTROPHILS % (AUTO) 59.1 % (40.0-70.0); PLATELET COUNT (AUTO) 240 K/uL (150-450); RED CELL DISTRIBUTION WIDTH 13.8 % (11.5-14.5)
[2018-01-03 15:37] LABS: ALANINE AMINOTRANSFERASE 36 U/L (12-78); ALBUMIN 3.2 g/dL (3.4-5.0); ALKALINE PHOSPHATASE 206 U/L (46-116); ANION GAP 7 mmol/L (8-16); ASPARTATE AMINOTRANSFERASE 6 U/L (15-37); BILIRUBIN,TOTAL 0.3 mg/dL (0.1-1.0); CALCIUM, TOTAL 8.6 mg/dL (8.8-10.5); CARBON DIOXIDE 26 mmol/L (22-29); CHLORIDE 106 mmol/L (98-107); CREATININE 1.18 mg/dL (0.60-1.30); GLOMERULAR FILTR. RATE CALC > 60 mL/min (>60); GLUCOSE,RANDOM 151 mg/dL (70-110); POTASSIUM 5.1 mmol/L (3.5-5.1); SODIUM SERUM 139 mmol/L (136-145); TOTAL PROTEIN, SERUM 7.6 g/dL (6.4-8.2); UREA NITROGEN, BLOOD 31 mg/dL (7-18)
== END | disposition home or self-care (01) ==
LOC: LABPV 14:31
PROVIDERS: ATTEND Hospitalist
DX: I10 Essential (primary) hypertension (principal); I70.1 Atherosclerosis of renal artery; D63.1 Anemia in chronic kidney disease; Z79.899 Other long term (current) drug therapy

== ENCOUNTER 2018-01-10 06:25 | Day surgery (SDC) | payer MEDICARE, OTHER ==
[~2018-01-10] VITALS: Ht 165.1 cm; Wt 90.5 kg
[~2018-01-10 06:25] MED LIST changes: +OFLOXACIN 0.3% 5 ML OPHTHALMIC SOLUTION OS SCH; +RINGERS SOLUTION,LACTATED 500 ML IV ONE; +TETRACAINE HCL/PF 0.5% 4 ML OPHTHALMIC SOLUTION OS ONE
[2018-01-10] MEDS ORDERED: HYALURONATE SODIUM 12 MG/ML 0.8 ML SYRINGE IO ONE (06:26)
[2018-01-10] MEDS ORDERED: POVIDONE-IODINE 10% 15 ML SOLUTION UD TP ONE (06:26)
[2018-01-10] MEDS ORDERED: LIDOCAINE/PF 1% 2 ML VIAL IM ONE (06:26)
[2018-01-10] MEDS ORDERED: EPINEPHrine 1:1,000 [1 MG/ML] AMP IM ONE (06:26)
[2018-01-10] MEDS ORDERED: RINGERS SOLUTION,LACTATED 500 ML IV ONE (06:48)
[2018-01-10] MEDS ORDERED: CYCLOPENTOLATE HCL 1% 2 ML OPHTHALMIC SOLUTION ONE (06:48)
[2018-01-10] MEDS ORDERED: PHENYLEPHRINE HCL 2.5% 2 ML OPHTHALMIC SOLUTION ONE (06:49)
[2018-01-10] MEDS ORDERED: FLURBIPROFEN SODIUM 0.03% 2.5 ML OPHTHALMIC SOLUTION ONE (06:49)
[2018-01-10] MEDS ORDERED: TROPICAMIDE 1% 2 ML OPHTHALMIC SOLUTION ONE (06:50)
[2018-01-10] MEDS ORDERED: TETRACAINE HCL/PF 0.5% 4 ML OPHTHALMIC SOLUTION ONE (06:50)
[2018-01-10] MEDS: PHENYLEPHRINE HCL 2.5% 2 ML OPHTHALMIC SOLUTION OS SCH ×3 (07:54→08:04)
[2018-01-10] MEDS: FLURBIPROFEN SODIUM 0.03% 2.5 ML OPHTHALMIC SOLUTION OS SCH ×3 (07:54→08:04)
[2018-01-10] MEDS: MOXIFLOXACIN HCL 0.5% 3 ML OPHTHALMIC SOLUTION OS SCH ×3 (07:54→08:04)
[2018-01-10] MEDS: CYCLOPENTOLATE HCL 1% 2 ML OPHTHALMIC SOLUTION OS SCH ×3 (07:54→08:04)
[2018-01-10] MEDS: TROPICAMIDE 1% 2 ML OPHTHALMIC SOLUTION OS SCH ×3 (07:55→08:04)
[2018-01-10 08:19] LABS: GLUCOMETER DEV NAME(LOC) SDS.; GLUCOSE,POINT OF CARE 186 MG/DL (70-110)
== END 2018-01-10 10:15 | disposition home or self-care (01) ==
LOC: SURGERY 06:25
PROVIDERS: ATTEND Ophthalmology
DX: E11.36 Type 2 diabetes mellitus with diabetic cataract (principal); H25.12 Age-related nuclear cataract, left eye; E78.00 Pure hypercholesterolemia, unspecified; I95.89 Other hypotension; G62.89 Other specified polyneuropathies; I25.10 Atherosclerotic heart disease of native coronary artery without angina pectoris; F32.9 Major depressive disorder, single episode, unspecified; F41.8 Other specified anxiety disorders; Z89.411 Acquired absence of right great toe; Z79.82 Long term (current) use of aspirin; Z87.891 Personal history of nicotine dependence; Z98.41 Cataract extraction status, right eye; Z79.01 Long term (current) use of anticoagulants; Z79.4 Long term (current) use of insulin; Z79.84 Long term (current) use of oral hypoglycemic drugs; Z98.890 Other specified postprocedural states; Z79.899 Other long term (current) drug therapy; Z82.3 Family history of stroke; Z82.49 Family history of ischemic heart disease and other diseases of the circulatory system; Z83.3 Family history of diabetes mellitus; Z83.42 Family history of familial hypercholesterolemia; Z80.9 Family history of malignant neoplasm, unspecified
CPT/HCPCS: 66984; 82962; C1780; J0171; J3490 ×2; J7120

== ENCOUNTER → 2018-01-23 | Outpatient (CLI) | payer MEDICARE, OTHER ==
[~2018-01-23] MED LIST changes: -OFLOXACIN 0.3% 5 ML OPHTHALMIC SOLUTION OS SCH; -RINGERS SOLUTION,LACTATED 500 ML IV ONE; -TETRACAINE HCL/PF 0.5% 4 ML OPHTHALMIC SOLUTION OS ONE
== END | disposition home or self-care (01) ==
LOC: RADPV 14:35
PROVIDERS: ATTEND Podiatrist Foot & Ankle Surgery
DX: M14.672 Charcot's joint, left ankle and foot (principal); L97.513 Non-pressure chronic ulcer of other part of right foot with necrosis of muscle; M79.671 Pain in right foot; Z89.421 Acquired absence of other right toe(s)

== ENCOUNTER 2018-02-05 13:00 | Inpatient (IN) | payer MEDICARE, OTHER ==
[~2018-02-05] VITALS: Ht 167.6 cm; Wt 88.6 kg
[2018-02-05 13:18] LABS: GLUCOSE,POINT OF CARE 214 MG/DL (70-110)
[2018-02-05] MEDS ORDERED: SODIUM CHLORIDE 0.9% 1,000 ML IV ONE ×3 (15:15→20:15)
[2018-02-05 15:17] LABS: BASOPHILS % (AUTO) 0.7 % (0.0-2.0); EOSINOPHILS % (AUTO) 6.6 % (1.0-6.0); HEMOGLOBIN 11.9 g/dL (13.5-17.5); LYMPHOCYTES # (AUTO) 1.8 K/uL (1.0-4.8); LYMPHOCYTES % (AUTO) 22.3 % (22.0-44.0); MEAN CORPUSCULAR HEMOGLOBIN 30.6 pg (26.0-34.0); MEAN CORPUSCULAR HGB CONC 34.1 G/dL (31.0-37.0); MEAN CORPUSCULAR VOLUME 90 fL (80-100); MONOCYTES # (AUTO) 0.7 K/uL (0.1-1.0); MONOCYTES % (AUTO) 8.2 % (2.0-9.0); NEUTROPHILS % (AUTO) 62.2 % (40.0-70.0); PLATELET COUNT (AUTO) 266 K/uL (150-450); RED CELL DISTRIBUTION WIDTH 13.6 % (11.5-14.5)
[2018-02-05 15:32] LABS: CALCIUM, TOTAL 9.5 mg/dL (8.8-10.5); CREATININE 1.76 mg/dL (0.60-1.30); POTASSIUM 4.7 mmol/L (3.5-5.1)
[2018-02-05 15:39] LABS: ALBUMIN 3.6 g/dL (3.4-5.0); BILIRUBIN,TOTAL 0.4 mg/dL (0.1-1.0); TOTAL PROTEIN, SERUM 8.2 g/dL (6.4-8.2)
[2018-02-05] MEDS ORDERED: MORPHINE SULFATE 4 MG/ML SYRINGE IVP ONE ×2 (16:15→21:15)
[2018-02-05] MEDS ORDERED: ONDANSETRON HCL 4 MG/2 ML VIAL IVP ONE (16:15)
[2018-02-05 17:02] LABS: CALCIUM, TOTAL 8.8 mg/dL (8.8-10.5); CREATININE 1.66 mg/dL (0.60-1.30); POTASSIUM 4.7 mmol/L (3.5-5.1)
[2018-02-05 17:04] LABS: C-REACTIVE PROTEIN QUANT 0.26 mg/dL (0.00-0.30)
[2018-02-05 17:20] LABS: PROTHROMBIN TIME 10.7 SEC (9.4-11.6)
[2018-02-05] MEDS ORDERED: GADOBUTROL 1 MMOL/ML 10 ML VIAL IVP ONE (19:08)
[2018-02-05 20:14] LABS: GLUCOSE,POINT OF CARE 151 MG/DL (70-110)
[2018-02-05] MEDS ORDERED: CefTRIAXone SODIUM 2 GM in DEXTROSE 5%-WATER 50 ML IV ONE (20:15)
[2018-02-05] MEDS ORDERED: VANCOMYCIN HCL 1.5 GM in DEXTROSE 5%-WATER 250 ML IV ONE (20:15)
[2018-02-05] MEDS ORDERED: ONDANSETRON HCL 4 MG/2 ML VIAL IVP PRN (21:30)
[2018-02-05] MEDS ORDERED: 0.9% SODIUM CHLORIDE 10 ML SYRINGE IVP PRN (21:30)
[2018-02-05] MEDS ORDERED: ACETAMINOPHEN 325 MG TABLET PO PRN (21:30)
[2018-02-05 21:50] VITALS: BP 127/73
[2018-02-05 23:45] VITALS: BP 122/70
[2018-02-06] MEDS ORDERED: -PHARMACY VACCINE NOTE- MISC ONE (00:15)
[2018-02-06] MEDS ORDERED: DEXTROSE 50%-WATER 25 GM/50 ML SYRINGE IVP PRN (00:30)
[2018-02-06 03:30] VITALS: BP 124/74
[2018-02-06 05:15] LABS: APPEARANCE,URINE CLEAR (CLEAR); BILIRUBIN,URINE NEGATIVE (NEGATIVE); GLUCOSE, URINE (UA) 500 mg/dL (NEGATIVE); KETONES,URINE NEGATIVE (NEGATIVE); LEUKOCYTE ESTERASE ,URINE NEGATIVE (NEGATIVE); NITRATE,URINE NEGATIVE (NEGATIVE); OCCULT BLOOD,URINE TRACE (NEGATIVE); PROTEIN,URINE POS 1+ (NEGATIVE); UROBILINOGEN,URINE 0.2 mg/dL (<=1.0)
[2018-02-06 05:18] LABS: AMPHET/METH SCREEN,URINE NEGATIVE (NEGATIVE); BARBITURATE SCREEN, URINE NEGATIVE (NEGATIVE); BENZODIAZEPINES SCREEN,URINE NEGATIVE (NEGATIVE); CANNABINOID SCREEN,URINE NEGATIVE (NEGATIVE); COCAINE SCREEN,URINE NEGATIVE (NEGATIVE); METHADONE SCREEN, URINE NEGATIVE (NEGATIVE); OPIATE SCREEN,URINE POSITIVE (NEGATIVE)
[2018-02-06 05:19] LABS: PHENCYCLIDINE SCREEN,URINE NEGATIVE (NEGATIVE)
[2018-02-06 05:28] LABS: BACTERIA,URINE None Seen /HPF (None Seen); RBC,URINE 0-2 /HPF (0-2); SQUAMOUS EPITHELIAL CELL,UR Few /LPF (None Seen); WBC,URINE 0-2 /HPF (0-5)
[2018-02-06] MEDS: INSULIN LISPRO 100 UNITS/ML SQ PRN ×3 (05:54→17:17)
[2018-02-06] MEDS: HYDROCODONE/ACETAMINOPHEN 5-325 MG TABLET PO PRN ×2 (05:58→17:21)
[2018-02-06 06:20] LABS: GLUCOMETER DEV NAME(LOC) 6N.1; GLUCOSE,POINT OF CARE 197 MG/DL (70-110)
[2018-02-06 07:50] VITALS: BP 129/84
[2018-02-06] MEDS: DIVALPROEX SODIUM 500 MG DR TABLET PO SCH ×2 (08:29→20:49)
[2018-02-06] MEDS: ASPIRIN 81 MG EC TABLET PO SCH (08:29)
[2018-02-06] MEDS: GABAPENTIN 300 MG CAPSULE PO SCH ×2 (08:30→20:48)
[2018-02-06] MEDS: OMEPRAZOLE 20 MG CAPSULE PO SCH ×2 (08:30→20:49)
[2018-02-06] MEDS: DOCUSATE SODIUM 100 MG CAPSULE PO SCH ×2 (08:30→20:48)
[2018-02-06] MEDS: PREGABALIN 25 MG CAPSULE PO SCH (08:30)
[2018-02-06 12:00] VITALS: BP 144/89
[2018-02-06 16:08] VITALS: BP 135/88
[2018-02-06 17:49] LABS: GLUCOMETER DEV NAME(LOC) 6N.1; GLUCOSE,POINT OF CARE 168 MG/DL (70-110)
[2018-02-06 17:49] LABS: GLUCOMETER DEV NAME(LOC) 6N.1; GLUCOSE,POINT OF CARE 189 MG/DL (70-110)
[2018-02-06 20:19] VITALS: BP 124/75
[2018-02-06] MEDS: CITALOPRAM HYDROBROMIDE 10 MG TABLET PO SCH (20:49)
[2018-02-06] MEDS: ATORVASTATIN CALCIUM 20 MG TABLET PO SCH (20:51)
[2018-02-06] MEDS: INSULIN GLARGINE,HUM.REC.ANLOG 100 UNITS/ML SQ SCH (20:58)
[2018-02-06 23:55] VITALS: BP 118/75
[2018-02-07 03:45] VITALS: BP 101/61
[2018-02-07 05:15] LABS: GLUCOMETER DEV NAME(LOC) 6N.2; GLUCOSE,POINT OF CARE 217 MG/DL (70-110)
[2018-02-07] MEDS: INSULIN LISPRO 100 UNITS/ML SQ PRN ×3 (06:52→17:54)
[2018-02-07 08:01] VITALS: BP 96/70
[2018-02-07] MEDS: DOCUSATE SODIUM 100 MG CAPSULE PO SCH ×2 (09:00→20:50)
[2018-02-07] MEDS: PREGABALIN 25 MG CAPSULE PO SCH (09:00)
[2018-02-07] MEDS: HYDROCODONE/ACETAMINOPHEN 5-325 MG TABLET PO PRN ×3 (09:50→23:04)
[2018-02-07] MEDS: DIVALPROEX SODIUM 500 MG DR TABLET PO SCH ×2 (09:51→20:50)
[2018-02-07] MEDS: ASPIRIN 81 MG EC TABLET PO SCH (09:56)
[2018-02-07] MEDS: GABAPENTIN 300 MG CAPSULE PO SCH ×2 (09:56→20:50)
[2018-02-07] MEDS: OMEPRAZOLE 20 MG CAPSULE PO SCH ×2 (09:56→20:50)
[2018-02-07 11:46] VITALS: BP 126/81
[2018-02-07 13:24] LABS: GLUCOMETER DEV NAME(LOC) 6N.1; GLUCOSE,POINT OF CARE 146 MG/DL (70-110)
[2018-02-07 13:28] LABS: GLUCOMETER DEV NAME(LOC) 6N.2; GLUCOSE,POINT OF CARE 171 MG/DL (70-110)
[2018-02-07 16:06] VITALS: BP 116/75
[2018-02-07 20:22] VITALS: BP 97/66
[2018-02-07] MEDS: CITALOPRAM HYDROBROMIDE 10 MG TABLET PO SCH (20:50)
[2018-02-07] MEDS: ATORVASTATIN CALCIUM 20 MG TABLET PO SCH (20:50)
[2018-02-07] MEDS: INSULIN GLARGINE,HUM.REC.ANLOG 100 UNITS/ML SQ SCH (21:02)
[2018-02-07 22:09] LABS: GLUCOMETER DEV NAME(LOC) 6N.2; GLUCOSE,POINT OF CARE 183 MG/DL (70-110)
[2018-02-08] VITALS (7 sets, daily range): BP systolic 84–148; BP diastolic 56–83
[2018-02-08 00:24] LABS: GLUCOMETER DEV NAME(LOC) 6N.1; GLUCOSE,POINT OF CARE 123 MG/DL (70-110)
[2018-02-08] MEDS: INSULIN LISPRO 100 UNITS/ML SQ PRN ×4 (05:52→20:38)
[2018-02-08 06:11] LABS: GLUCOMETER DEV NAME(LOC) 6N.1; GLUCOSE,POINT OF CARE 159 MG/DL (70-110)
[2018-02-08] MEDS: PREGABALIN 25 MG CAPSULE PO SCH (08:05)
[2018-02-08] MEDS: GABAPENTIN 300 MG CAPSULE PO SCH ×2 (08:06→20:34)
[2018-02-08] MEDS: ASPIRIN 81 MG EC TABLET PO SCH (08:06)
[2018-02-08] MEDS: DIVALPROEX SODIUM 500 MG DR TABLET PO SCH ×2 (08:06→20:34)
[2018-02-08] MEDS: OMEPRAZOLE 20 MG CAPSULE PO SCH ×2 (08:06→20:34)
[2018-02-08] MEDS: DOCUSATE SODIUM 100 MG CAPSULE PO SCH ×2 (08:06→20:34)
[2018-02-08] MEDS: HYDROCODONE/ACETAMINOPHEN 5-325 MG TABLET PO PRN ×2 (08:39→15:45)
[2018-02-08 13:11] LABS: ANION GAP 6 mmol/L (8-16); CALCIUM, TOTAL 8.7 mg/dL (8.8-10.5); CARBON DIOXIDE 28 mmol/L (22-29); CHLORIDE 100 mmol/L (98-107); CREATININE 1.04 mg/dL (0.60-1.30); GLOMERULAR FILTR. RATE CALC > 60 mL/min (>60); GLUCOSE,RANDOM 147 mg/dL (70-110); POTASSIUM 4.6 mmol/L (3.5-5.1); SODIUM SERUM 134 mmol/L (136-145); UREA NITROGEN, BLOOD 31 mg/dL (7-18)
[2018-02-08 18:00] LABS: GLUCOMETER DEV NAME(LOC) 6N.2; GLUCOSE,POINT OF CARE 178 MG/DL (70-110)
[2018-02-08 18:59] LABS: GLUCOMETER DEV NAME(LOC) 6N.1; GLUCOSE,POINT OF CARE 175 MG/DL (70-110)
[2018-02-08] MEDS: ATORVASTATIN CALCIUM 20 MG TABLET PO SCH (20:34)
[2018-02-08] MEDS: CITALOPRAM HYDROBROMIDE 10 MG TABLET PO SCH (20:34)
[2018-02-08] MEDS: INSULIN GLARGINE,HUM.REC.ANLOG 100 UNITS/ML SQ SCH (20:36)
[2018-02-08 21:40] LABS: GLUCOMETER DEV NAME(LOC) 6N.1; GLUCOSE,POINT OF CARE 164 MG/DL (70-110)
[2018-02-09] VITALS (8 sets, daily range): BP systolic 85–132; BP diastolic 55–86
[2018-02-09] MEDS: HYDROCODONE/ACETAMINOPHEN 5-325 MG TABLET PO PRN ×4 (00:34→22:44)
[2018-02-09] MEDS: DOCUSATE SODIUM 100 MG CAPSULE PO SCH ×2 (08:43→20:20)
[2018-02-09] MEDS: GABAPENTIN 300 MG CAPSULE PO SCH ×2 (08:44→20:21)
[2018-02-09] MEDS: OMEPRAZOLE 20 MG CAPSULE PO SCH ×2 (08:44→20:20)
[2018-02-09] MEDS: DIVALPROEX SODIUM 500 MG DR TABLET PO SCH ×2 (08:44→20:21)
[2018-02-09] MEDS: ASPIRIN 81 MG EC TABLET PO SCH (08:44)
[2018-02-09] MEDS: PREGABALIN 25 MG CAPSULE PO SCH (08:44)
[2018-02-09 09:19] LABS: GLUCOMETER DEV NAME(LOC) 6N.1; GLUCOSE,POINT OF CARE 138 MG/DL (70-110)
[2018-02-09 14:06] LABS: EOSINOPHILS % (AUTO) 10.2 % (1.0-6.0); HEMATOCRIT 36.6 % (41-53); HEMOGLOBIN 12.5 g/dL (13.5-17.5); LYMPHOCYTES # (AUTO) 1.8 K/uL (1.0-4.8); LYMPHOCYTES % (AUTO) 35.9 % (22.0-44.0); MEAN CORPUSCULAR HEMOGLOBIN 30.8 pg (26.0-34.0); MEAN CORPUSCULAR HGB CONC 34.1 G/dL (31.0-37.0); MEAN CORPUSCULAR VOLUME 90 fL (80-100); MONOCYTES # (AUTO) 0.4 K/uL (0.1-1.0); MONOCYTES % (AUTO) 8.7 % (2.0-9.0); NEUTROPHILS # (AUTO) 2.2 K/uL (1.8-7.7); NEUTROPHILS % (AUTO) 44.2 % (40.0-70.0); PLATELET COUNT (AUTO) 235 K/uL (150-450); RED BLOOD CELL COUNT(AUTO) 4.04 MIL/uL (4.50-5.90); RED CELL DISTRIBUTION WIDTH 13.5 % (11.5-14.5)
[2018-02-09 14:22] LABS: ANION GAP 6 mmol/L (8-16); CALCIUM, TOTAL 8.9 mg/dL (8.8-10.5); CARBON DIOXIDE 28 mmol/L (22-29); CHLORIDE 98 mmol/L (98-107); CREATININE 1.12 mg/dL (0.60-1.30); GLOMERULAR FILTR. RATE CALC > 60 mL/min (>60); GLUCOSE,RANDOM 232 mg/dL (70-110); POTASSIUM 4.8 mmol/L (3.5-5.1); SODIUM SERUM 132 mmol/L (136-145); UREA NITROGEN, BLOOD 26 mg/dL (7-18)
[2018-02-09 14:28] LABS: ALANINE AMINOTRANSFERASE 25 U/L (12-78); ALBUMIN 3.3 g/dL (3.4-5.0); ALKALINE PHOSPHATASE 144 U/L (46-116); ASPARTATE AMINOTRANSFERASE 12 U/L (15-37); BILIRUBIN,TOTAL 0.4 mg/dL (0.1-1.0); TOTAL PROTEIN, SERUM 7.9 g/dL (6.4-8.2)
[2018-02-09 14:34] LABS: GLUCOMETER DEV NAME(LOC) 6N.1; GLUCOSE,POINT OF CARE 132 MG/DL (70-110)
[2018-02-09] MEDS: INSULIN LISPRO 100 UNITS/ML SQ PRN (18:09)
[2018-02-09] MEDS: CITALOPRAM HYDROBROMIDE 10 MG TABLET PO SCH (20:21)
[2018-02-09] MEDS: ATORVASTATIN CALCIUM 20 MG TABLET PO SCH (20:21)
[2018-02-09 20:30] LABS: GLUCOMETER DEV NAME(LOC) 6N.2; GLUCOSE,POINT OF CARE 220 MG/DL (70-110)
[2018-02-09] MEDS: INSULIN GLARGINE,HUM.REC.ANLOG 100 UNITS/ML SQ SCH (21:00)
[2018-02-09 21:19] LABS: GLUCOMETER DEV NAME(LOC) 6N.2; GLUCOSE,POINT OF CARE 122 MG/DL (70-110)
[2018-02-09] MEDS ORDERED: DEXTROSE 5%-0.45% SODIUM CHL 1,000 ML IV ONE (23:59)
[2018-02-10 04:25] VITALS: BP 119/80
[2018-02-10 05:59] LABS: GLUCOMETER DEV NAME(LOC) 6N.1; GLUCOSE,POINT OF CARE 152 MG/DL (70-110)
[2018-02-10 07:15] VITALS: BP 114/82
[2018-02-10 07:55] LABS: ANION GAP 6 mmol/L (8-16); CALCIUM, TOTAL 8.8 mg/dL (8.8-10.5); CARBON DIOXIDE 29 mmol/L (22-29); CHLORIDE 101 mmol/L (98-107); CREATININE 1.13 mg/dL (0.60-1.30); GLOMERULAR FILTR. RATE CALC > 60 mL/min (>60); GLUCOSE,RANDOM 137 mg/dL (70-110); POTASSIUM 4.9 mmol/L (3.5-5.1); SODIUM SERUM 136 mmol/L (136-145); UREA NITROGEN, BLOOD 24 mg/dL (7-18)
[2018-02-10 08:08] LABS: BASOPHILS % (AUTO) 1.4 % (0.0-2.0); EOSINOPHILS % (AUTO) 10.8 % (1.0-6.0); HEMOGLOBIN 11.7 g/dL (13.5-17.5); LYMPHOCYTES # (AUTO) 1.6 K/uL (1.0-4.8); LYMPHOCYTES % (AUTO) 32.7 % (22.0-44.0); MEAN CORPUSCULAR HEMOGLOBIN 31.5 pg (26.0-34.0); MEAN CORPUSCULAR HGB CONC 35.4 G/dL (31.0-37.0); MEAN CORPUSCULAR VOLUME 89 fL (80-100); MONOCYTES # (AUTO) 0.5 K/uL (0.1-1.0); MONOCYTES % (AUTO) 10.3 % (2.0-9.0); NEUTROPHILS # (AUTO) 2.3 K/uL (1.8-7.7); NEUTROPHILS % (AUTO) 44.8 % (40.0-70.0); PLATELET COUNT (AUTO) 217 K/uL (150-450); RED CELL DISTRIBUTION WIDTH 13.7 % (11.5-14.5)
[2018-02-10] MEDS: DIVALPROEX SODIUM 500 MG DR TABLET PO SCH ×2 (08:36→20:24)
[2018-02-10] MEDS: GABAPENTIN 300 MG CAPSULE PO SCH ×2 (08:36→20:24)
[2018-02-10] MEDS: PREGABALIN 25 MG CAPSULE PO SCH (08:36)
[2018-02-10] MEDS: DOCUSATE SODIUM 100 MG CAPSULE PO SCH ×2 (08:36→20:24)
[2018-02-10] MEDS: OMEPRAZOLE 20 MG CAPSULE PO SCH ×2 (08:36→20:24)
[2018-02-10] MEDS: ASPIRIN 81 MG EC TABLET PO SCH (08:51)
[2018-02-10] MEDS: HYDROCODONE/ACETAMINOPHEN 5-325 MG TABLET PO PRN ×3 (08:51→22:41)
[2018-02-10 11:34] VITALS: BP 118/56
[2018-02-10] MEDS ORDERED: MIDAZOLAM HCL 2 MG/2 ML VIAL IVP ONE (12:00)
[2018-02-10] MEDS ORDERED: FentaNYL CITRATE-PF 100 MCG/2 ML VIAL IVP ONE (12:00)
[2018-02-10] MEDS ORDERED: RINGERS SOLUTION,LACTATED 1,000 ML IV ONE ×2 (12:00→12:01)
[2018-02-10] MEDS ORDERED: LIDOCAINE/PF 1% 30 ML VIAL ONE (12:14)
[2018-02-10] MEDS ORDERED: BUPIVACAINE HCL/PF 0.5% 30 ML VIAL ONE (12:14)
[2018-02-10] MEDS ORDERED: GELATIN SPONGE,ABSORBABLE 50 MM TP ONE (13:17)
[2018-02-10] MEDS ORDERED: THROMBIN, BOVINE 20000 UNITS/VIAL POWDER TP ONE (13:17)
[2018-02-10 14:14] LABS: GLUCOMETER DEV NAME(LOC) 6N.2; GLUCOSE,POINT OF CARE 133 MG/DL (70-110)
[2018-02-10 15:53] VITALS: BP 125/70
[2018-02-10 17:29] LABS: GLUCOMETER DEV NAME(LOC) 6N.1; GLUCOSE,POINT OF CARE 146 MG/DL (70-110)
[2018-02-10] MEDS: MetFORMIN HCL 500 MG TABLET PO SCH (17:57)
[2018-02-10] MEDS: INSULIN LISPRO 100 UNITS/ML SQ PRN ×2 (17:57→20:39)
[2018-02-10 19:56] VITALS: BP 97/68
[2018-02-10] MEDS: CITALOPRAM HYDROBROMIDE 10 MG TABLET PO SCH (20:24)
[2018-02-10] MEDS: ATORVASTATIN CALCIUM 20 MG TABLET PO SCH (20:24)
[2018-02-10] MEDS: INSULIN GLARGINE,HUM.REC.ANLOG 100 UNITS/ML SQ SCH (20:38)
[2018-02-10 22:09] LABS: GLUCOMETER DEV NAME(LOC) 6N.1; GLUCOSE,POINT OF CARE 143 MG/DL (70-110)
[2018-02-11] VITALS (7 sets, daily range): BP systolic 99–126; BP diastolic 51–92
[2018-02-11] MEDS: MORPHINE SULFATE 4 MG/ML SYRINGE IVP PRN ×4 (02:44→20:19)
[2018-02-11] MEDS: INSULIN LISPRO 100 UNITS/ML SQ PRN ×4 (05:00→20:18)
[2018-02-11 05:29] LABS: GLUCOMETER DEV NAME(LOC) 6N.1; GLUCOSE,POINT OF CARE 158 MG/DL (70-110)
[2018-02-11] MEDS: GABAPENTIN 300 MG CAPSULE PO SCH ×2 (08:41→20:13)
[2018-02-11] MEDS: PREGABALIN 25 MG CAPSULE PO SCH (08:41)
[2018-02-11] MEDS: DIVALPROEX SODIUM 500 MG DR TABLET PO SCH ×2 (08:41→20:13)
[2018-02-11] MEDS: MetFORMIN HCL 500 MG TABLET PO SCH ×2 (08:41→16:29)
[2018-02-11] MEDS: DOCUSATE SODIUM 100 MG CAPSULE PO SCH ×2 (08:42→20:13)
[2018-02-11] MEDS: OMEPRAZOLE 20 MG CAPSULE PO SCH ×2 (08:42→20:13)
[2018-02-11] MEDS: ASPIRIN 81 MG EC TABLET PO SCH (08:47)
[2018-02-11 11:34] LABS: GLUCOMETER DEV NAME(LOC) 6N.2; GLUCOSE,POINT OF CARE 195 MG/DL (70-110)
[2018-02-11 17:44] LABS: GLUCOMETER DEV NAME(LOC) 6N.2; GLUCOSE,POINT OF CARE 152 MG/DL (70-110)
[2018-02-11] MEDS: ATORVASTATIN CALCIUM 20 MG TABLET PO SCH (20:13)
[2018-02-11] MEDS: CITALOPRAM HYDROBROMIDE 10 MG TABLET PO SCH (20:13)
[2018-02-11] MEDS: INSULIN GLARGINE,HUM.REC.ANLOG 100 UNITS/ML SQ SCH (20:17)
[2018-02-11 20:35] LABS: GLUCOMETER DEV NAME(LOC) 6N.1; GLUCOSE,POINT OF CARE 206 MG/DL (70-110)
[2018-02-12] MEDS: MORPHINE SULFATE 4 MG/ML SYRINGE IVP PRN ×2 (03:12→13:32)
[2018-02-12 05:07] VITALS: BP 107/71
[2018-02-12] MEDS: INSULIN LISPRO 100 UNITS/ML SQ PRN ×2 (05:43→11:22)
[2018-02-12 06:19] LABS: GLUCOMETER DEV NAME(LOC) 6N.2; GLUCOSE,POINT OF CARE 144 MG/DL (70-110)
[2018-02-12 08:02] VITALS: BP 101/73
[2018-02-12] MEDS: MetFORMIN HCL 500 MG TABLET PO SCH (08:37)
[2018-02-12] MEDS: PREGABALIN 25 MG CAPSULE PO SCH (08:37)
[2018-02-12] MEDS: DOCUSATE SODIUM 100 MG CAPSULE PO SCH (08:37)
[2018-02-12] MEDS: OMEPRAZOLE 20 MG CAPSULE PO SCH (08:37)
[2018-02-12] MEDS: DIVALPROEX SODIUM 500 MG DR TABLET PO SCH (08:37)
[2018-02-12] MEDS: GABAPENTIN 300 MG CAPSULE PO SCH (08:37)
[2018-02-12] MEDS: ASPIRIN 81 MG EC TABLET PO SCH (08:39)
[2018-02-12] MEDS: HYDROCODONE/ACETAMINOPHEN 5-325 MG TABLET PO PRN (08:42)
[2018-02-12 11:22] VITALS: BP 122/73
[2018-02-12 11:29] LABS: GLUCOMETER DEV NAME(LOC) 6N.1; GLUCOSE,POINT OF CARE 171 MG/DL (70-110)
[2018-12-10] MEDS ORDERED: PROPOFOL 1% 20 ML VIAL IVP ONE (12:00)
[2018-12-10] MEDS ORDERED: LIDOCAINE/PF 2% 5 ML VIAL INJ ONE (12:00)
== END 2018-02-12 15:10 | disposition home health service (06) | DRG 617 ==
LOC: EMS 13:02 → 6N 21:00
PROVIDERS: ADMIT Hospitalist; ATTEND Hospitalist
PROC: 0QBP0ZX Excision of Left Metatarsal, Open Approach, Diagnostic (ICD-10-PCS; 2018-02-10)
PROC: 0Y6P0Z0 Detachment at Right 1st Toe, Complete, Open Approach (ICD-10-PCS; principal; 2018-02-10 13:00)
DX: E11.69 Type 2 diabetes mellitus with other specified complication (principal); M86.8X7 Other osteomyelitis, ankle and foot; E78.5 Hyperlipidemia, unspecified; E11.40 Type 2 diabetes mellitus with diabetic neuropathy, unspecified; E11.610 Type 2 diabetes mellitus with diabetic neuropathic arthropathy; E78.00 Pure hypercholesterolemia, unspecified; I10 Essential (primary) hypertension; I25.10 Atherosclerotic heart disease of native coronary artery without angina pectoris; F41.9 Anxiety disorder, unspecified; E11.621 Type 2 diabetes mellitus with foot ulcer; L97.519 Non-pressure chronic ulcer of other part of right foot with unspecified severity; M21.962 Unspecified acquired deformity of left lower leg; Z87.891 Personal history of nicotine dependence; Z91.81 History of falling; Z79.899 Other long term (current) drug therapy
CPT/HCPCS: 73720; 82948; 85651; 86140; 87040; 87070; 87081; 93005; 93925; 96374; 96375; A9585; G0378; J0696; J1815; J2250; J2270; J2405; J2704; J3010; J3370; J3490; J7060; J7120

== ENCOUNTER → 2018-03-07 | Outpatient (CLI) | payer MEDICARE, OTHER ==
[2018-03-07 16:32] LABS: BASOPHILS % (AUTO) 0.9 % (0.0-2.0); EOSINOPHILS % (AUTO) 10.7 % (1.0-6.0); HEMATOCRIT 36.1 % (41-53); HEMOGLOBIN 12.1 g/dL (13.5-17.5); LYMPHOCYTES # (AUTO) 1.9 K/uL (1.0-4.8); LYMPHOCYTES % (AUTO) 31.9 % (22.0-44.0); MEAN CORPUSCULAR HEMOGLOBIN 30.3 pg (26.0-34.0); MEAN CORPUSCULAR HGB CONC 33.4 G/dL (31.0-37.0); MEAN CORPUSCULAR VOLUME 91 fL (80-100); MONOCYTES # (AUTO) 0.5 K/uL (0.1-1.0); NEUTROPHILS # (AUTO) 2.9 K/uL (1.8-7.7); NEUTROPHILS % (AUTO) 47.5 % (40.0-70.0); PLATELET COUNT (AUTO) 232 K/uL (150-450); RED BLOOD CELL COUNT(AUTO) 3.98 MIL/uL (4.50-5.90)
[2018-03-07 16:40] LABS: APPEARANCE,URINE CLEAR (CLEAR); BILIRUBIN,URINE NEGATIVE (NEGATIVE); GLUCOSE, URINE (UA) NEGATIVE (NEGATIVE); KETONES,URINE NEGATIVE (NEGATIVE); LEUKOCYTE ESTERASE ,URINE NEGATIVE (NEGATIVE); NITRATE,URINE NEGATIVE (NEGATIVE); OCCULT BLOOD,URINE SMALL (NEGATIVE); PH,URINE 5.5 (5.0-8.0); PROTEIN,URINE POS 1+ (NEGATIVE); UROBILINOGEN,URINE 0.2 mg/dL (<=1.0)
[2018-03-07 16:41] LABS: CREATININE,URINE RANDOM 122.5 mg/dL (30.0-125.0); PROTEIN,URINE RANDOM 54 mg/dL (0-11.9)
[2018-03-07 16:44] LABS: ALBUMIN 3.6 g/dL (3.4-5.0); ANION GAP 4 mmol/L (8-16); CALCIUM, TOTAL 9.3 mg/dL (8.8-10.5); CARBON DIOXIDE 30 mmol/L (22-29); CHLORIDE 102 mmol/L (98-107); CREATININE 1.19 mg/dL (0.60-1.30); GLOMERULAR FILTR. RATE CALC > 60 mL/min (>60); GLUCOSE,RANDOM 114 mg/dL (70-110); PHOSPHORUS 4.2 mg/dL (2.5-4.9); POTASSIUM 4.8 mmol/L (3.5-5.1); SODIUM SERUM 136 mmol/L (136-145); UREA NITROGEN, BLOOD 34 mg/dL (7-18)
[2018-03-07 16:46] LABS: BACTERIA,URINE Rare /HPF (None Seen); SQUAMOUS EPITHELIAL CELL,UR Rare /LPF (None Seen); WBC,URINE 0-2 /HPF (0-5)
[2018-03-07 17:02] LABS: HEMOGLOBIN A1C 7.1 % (4.5-6.2)
[2018-03-07 19:09] LABS: ERYTHROCYTE SEDIMENTATION RATE 25 MM/HR (0-15)
== END | disposition home or self-care (01) ==
LOC: MSR 14:53
PROVIDERS: ATTEND Podiatrist Foot & Ankle Surgery
DX: M25.474 Effusion, right foot (principal); M79.89 Other specified soft tissue disorders; E11.9 Type 2 diabetes mellitus without complications; I10 Essential (primary) hypertension; E78.00 Pure hypercholesterolemia, unspecified; Z79.899 Other long term (current) drug therapy
CPT/HCPCS: 82043; 82570; 83036; 83970; 84156; 85651

== ENCOUNTER → 2018-03-14 | Outpatient (CLI) | payer MEDICARE, OTHER ==
[2018-03-14 15:06] LABS: APPEARANCE,URINE CLEAR (CLEAR); BILIRUBIN,URINE NEGATIVE (NEGATIVE); GLUCOSE, URINE (UA) NEGATIVE (NEGATIVE); KETONES,URINE NEGATIVE (NEGATIVE); LEUKOCYTE ESTERASE ,URINE NEGATIVE (NEGATIVE); NITRATE,URINE NEGATIVE (NEGATIVE); OCCULT BLOOD,URINE MODERATE (NEGATIVE); PH,URINE 5.5 (5.0-8.0); PROTEIN,URINE POS 1+ (NEGATIVE); UROBILINOGEN,URINE 0.2 mg/dL (<=1.0)
[2018-03-14 15:19] LABS: WBC,URINE 0-2 /HPF (0-5)
[2018-03-14 15:20] LABS: BACTERIA,URINE None Seen /HPF (None Seen)
[2018-03-14 15:21] LABS: SQUAMOUS EPITHELIAL CELL,UR Rare /LPF (None Seen)
== END | disposition home or self-care (01) ==
LOC: LABPV 14:39
PROVIDERS: ATTEND Hospitalist
DX: R31.21 Asymptomatic microscopic hematuria (principal)

== ENCOUNTER → 2018-03-29 | Outpatient (CLI) | payer MEDICARE, OTHER | END | disposition home or self-care (01) | LOC: RADPV 10:21 | PROVIDERS: ATTEND Hospitalist | DX: R31.21 Asymptomatic microscopic hematuria (principal) | CPT/HCPCS: 76770 ==

== ENCOUNTER → 2018-08-28 | Outpatient (CLI) | payer MEDICARE ==
[~2018-08-28] MED LIST changes: +A20IH1 IH; +ACET-2902 PO; +BISA-151 PO; +FAMO20TA8 PO; +HEPA500018 SQ; -HYDR-309 PO; -METF-960 PO; +MOM30 PO; +NS5H IVP; -OMEP20 PO; +PERCT PO; -PREG25 PO; +VANC750V2 IV
[2018-08-28 12:36] LABS: BASOPHILS % (AUTO) 1.3 % (0.0-2.0); EOSINOPHILS % (AUTO) 13.4 % (1.0-6.0); HEMATOCRIT 38.8 % (41-53); HEMOGLOBIN 12.8 g/dL (13.5-17.5); LYMPHOCYTES # (AUTO) 1.6 K/uL (1.0-4.8); LYMPHOCYTES % (AUTO) 28.9 % (22.0-44.0); MEAN CORPUSCULAR HEMOGLOBIN 31.9 pg (26.0-34.0); MEAN CORPUSCULAR HGB CONC 32.9 G/dL (31.0-37.0); MEAN CORPUSCULAR VOLUME 97 fL (80-100); MONOCYTES # (AUTO) 0.5 K/uL (0.1-1.0); MONOCYTES % (AUTO) 9.3 % (2.0-9.0); NEUTROPHILS # (AUTO) 2.6 K/uL (1.8-7.7); NEUTROPHILS % (AUTO) 47.1 % (40.0-70.0); PLATELET COUNT (AUTO) 189 K/uL (150-450); RED CELL DISTRIBUTION WIDTH 13.2 % (11.5-14.5)
[2018-08-28 14:05] LABS: ERYTHROCYTE SEDIMENTATION RATE 25 MM/HR (0-15)
== END | disposition home or self-care (01) ==
LOC: MSR 10:15
PROVIDERS: ATTEND Podiatrist Foot & Ankle Surgery
DX: S93.335A Other dislocation of left foot, initial encounter (principal); M86.8X7 Other osteomyelitis, ankle and foot; M79.89 Other specified soft tissue disorders; X58.XXXA Exposure to other specified factors, initial encounter; Y93.89 Activity, other specified; Y92.89 Other specified places as the place of occurrence of the external cause; Y99.8 Other external cause status
CPT/HCPCS: 85651

== ENCOUNTER 2018-10-16 22:10 | Emergency (ER) | payer MEDICARE, MEDICAID ==
[~2018-10-16] VITALS: Ht 167.6 cm; Wt 118.2 kg
[~2018-10-16 22:10] MED LIST changes: -ACET-2902 PO; +ACET1TAB12 PO; -BISA-151 PO; -DOCU100C33 PO; -HEPA500018 SQ; +METF-960 PO; +MIDO2.5T15 PO; -MOM30 PO; -NS5H IVP; -PERCT PO; -VANC750V2 IV
[2018-10-16 23:06] LABS: GLUCOSE,POINT OF CARE 94 MG/DL (70-110)
[2018-10-17 08:23] VITALS: BP 131/85
== END 2018-10-17 08:45 | disposition home or self-care (01) ==
LOC: EMS 22:13
DX: S80.821A Blister (nonthermal), right lower leg, initial encounter (principal); E11.40 Type 2 diabetes mellitus with diabetic neuropathy, unspecified; F41.9 Anxiety disorder, unspecified; F32.9 Major depressive disorder, single episode, unspecified; I25.10 Atherosclerotic heart disease of native coronary artery without angina pectoris; E78.00 Pure hypercholesterolemia, unspecified; I10 Essential (primary) hypertension; Z87.891 Personal history of nicotine dependence; Z79.82 Long term (current) use of aspirin; Z79.4 Long term (current) use of insulin; Z79.84 Long term (current) use of oral hypoglycemic drugs; X58.XXXA Exposure to other specified factors, initial encounter; Y93.89 Activity, other specified; Y92.89 Other specified places as the place of occurrence of the external cause; Y99.8 Other external cause status
CPT/HCPCS: 93926; 93971

== ENCOUNTER 2018-11-06 10:50 | Inpatient (IN) | payer MEDICARE, MEDICAID ==
[~2018-11-06] VITALS: Ht 167.6 cm; Wt 93.1 kg
[~2018-11-06 10:50] MED LIST changes: -ATOR20TA86 PO; -MIDO2.5T15 PO; +MIDO2.5T19 PO
[2018-11-06 11:05] LABS: GLUCOSE,POINT OF CARE 225 MG/DL (70-110)
[2018-11-06 12:13] LABS: BASOPHILS % (AUTO) 0.5 % (0.0-2.0); EOSINOPHILS % (AUTO) 1.4 % (1.0-6.0); HEMATOCRIT 30.1 % (41-53); HEMOGLOBIN 10.4 g/dL (13.5-17.5); LYMPHOCYTES # (AUTO) 0.6 K/uL (1.0-4.8); LYMPHOCYTES % (AUTO) 4.2 % (22.0-44.0); MEAN CORPUSCULAR HEMOGLOBIN 31.7 pg (26.0-34.0); MEAN CORPUSCULAR HGB CONC 34.6 G/dL (31.0-37.0); MEAN CORPUSCULAR VOLUME 92 fL (80-100); MONOCYTES # (AUTO) 0.9 K/uL (0.1-1.0); NEUTROPHILS # (AUTO) 11.5 K/uL (1.8-7.7); PLATELET COUNT (AUTO) 373 K/uL (150-450); RED BLOOD CELL COUNT(AUTO) 3.29 MIL/uL (4.50-5.90); RED CELL DISTRIBUTION WIDTH 12.9 % (11.5-14.5)
[2018-11-06 12:14] LABS: NEUTROPHILS % (AUTO) 86.9 % (40.0-70.0)
[2018-11-06 12:24] LABS: CALCIUM, TOTAL 9.3 mg/dL (8.8-10.5); CREATININE 1.27 mg/dL (0.60-1.30)
[2018-11-06 12:28] LABS: ALBUMIN 2.7 g/dL (3.4-5.0); BILIRUBIN,TOTAL 1.7 mg/dL (0.1-1.0)
[2018-11-06 13:09] LABS: ERYTHROCYTE SEDIMENTATION RATE 127 MM/HR (0-15)
[2018-11-06] MEDS ORDERED: MORPHINE SULFATE 2 MG/ML SYRINGE IVP ONE (14:15)
[2018-11-06] MEDS ORDERED: ONDANSETRON HCL 4 MG/2 ML VIAL IVP ONE (14:15)
[2018-11-06] MEDS ORDERED: SODIUM CHLORIDE 0.9% 1,000 ML IV ONE (14:15)
[2018-11-06] MEDS ORDERED: DEXTROSE 50%-WATER 25 GM/50 ML SYRINGE IVP PRN (14:30)
[2018-11-06] MEDS ORDERED: VANCOMYCIN HCL 1 GM/D5% WATER 200 ML IV ONE (15:00)
[2018-11-06] MEDS ORDERED: SODIUM CHLORIDE 0.9% 250 ML IV ONE (17:05)
[2018-11-06] MEDS ORDERED: GADOBUTROL 1 MMOL/ML 10 ML VIAL IVP ONE (17:27)
[2018-11-06] MEDS: INSULIN LISPRO 100 UNITS/ML SQ PRN ×2 (18:09→20:41)
[2018-11-06] MEDS: HEPARIN SODIUM,PORCINE 5,000 UNITS/ML VIAL SQ SCH ×2 (18:15→23:32)
[2018-11-06] MEDS ORDERED: VANCOMYCIN HCL 500 MG in DEXTROSE 5%-WATER 100 ML IV ONE (18:15)
[2018-11-06 18:35] VITALS: BP 140/79
[2018-11-06 19:06] LABS: GLUCOMETER DEV NAME(LOC) 6N.1; GLUCOSE,POINT OF CARE 200 MG/DL (70-110)
[2018-11-06 19:27] VITALS: BP 125/80
[2018-11-06] MEDS: DOCUSATE SODIUM 100 MG CAPSULE PO SCH (20:33)
[2018-11-06] MEDS: GABAPENTIN 300 MG CAPSULE PO SCH (20:33)
[2018-11-06] MEDS: INSULIN GLARGINE,HUM.REC.ANLOG 100 UNITS/ML SQ SCH (20:40)
[2018-11-06 20:56] LABS: GLUCOMETER DEV NAME(LOC) 6N.1; GLUCOSE,POINT OF CARE 178 MG/DL (70-110)
[2018-11-06 23:22] VITALS: BP 101/57
[2018-11-07 04:33] VITALS: BP 116/63
[2018-11-07] MEDS: INSULIN LISPRO 100 UNITS/ML SQ PRN ×4 (05:29→20:07)
[2018-11-07 05:43] LABS: ANION GAP 11 mmol/L (8-16); CALCIUM, TOTAL 8.4 mg/dL (8.8-10.5); CARBON DIOXIDE 24 mmol/L (22-29); CHLORIDE 98 mmol/L (98-107); CREATININE 1.08 mg/dL (0.60-1.30); GLOMERULAR FILTR. RATE CALC > 60 mL/min (>60); GLUCOSE,RANDOM 195 mg/dL (70-110); POTASSIUM 3.6 mmol/L (3.5-5.1); SODIUM SERUM 133 mmol/L (136-145); UREA NITROGEN, BLOOD 19 mg/dL (7-18)
[2018-11-07 06:11] LABS: GLUCOMETER DEV NAME(LOC) 6N.1; GLUCOSE,POINT OF CARE 187 MG/DL (70-110)
[2018-11-07 07:34] VITALS: BP 105/64
[2018-11-07] MEDS: VANCOMYCIN HCL 1 GM/D5% WATER 200 ML IV SCH ×2 (07:47→19:57)
[2018-11-07] MEDS: HEPARIN SODIUM,PORCINE 5,000 UNITS/ML VIAL SQ SCH ×3 (07:47→23:36)
[2018-11-07] MEDS: GABAPENTIN 300 MG CAPSULE PO SCH ×2 (07:48→19:56)
[2018-11-07] MEDS: DOCUSATE SODIUM 100 MG CAPSULE PO SCH ×2 (07:48→19:56)
[2018-11-07] MEDS: FAMOTIDINE 20 MG TABLET PO SCH (07:48)
[2018-11-07] MEDS: CITALOPRAM HYDROBROMIDE 10 MG TABLET PO SCH (07:48)
[2018-11-07] MEDS: OxyCODONE HCL/ACETAMINOPHEN 5-325 MG TABLET PO PRN ×2 (07:52→23:35)
[2018-11-07 11:15] VITALS: BP 98/65
[2018-11-07 12:36] LABS: GLUCOMETER DEV NAME(LOC) 6N.1; GLUCOSE,POINT OF CARE 279 MG/DL (70-110)
[2018-11-07] MEDS ORDERED: WATER FOR IRRIGATION,STERILE 1000 ML SOLUTION BOTTLE ONE (14:15)
[2018-11-07 15:21] VITALS: BP 103/57
[2018-11-07 17:22] LABS: GLUCOMETER DEV NAME(LOC) 6N.1; GLUCOSE,POINT OF CARE 208 MG/DL (70-110)
[2018-11-07 19:25] VITALS: BP 106/64
[2018-11-07] MEDS: ACETAMINOPHEN 325 MG TABLET PO PRN (19:56)
[2018-11-07] MEDS: INSULIN GLARGINE,HUM.REC.ANLOG 100 UNITS/ML SQ SCH (20:06)
[2018-11-07 20:31] LABS: GLUCOMETER DEV NAME(LOC) 6N.1; GLUCOSE,POINT OF CARE 254 MG/DL (70-110)
[2018-11-07 23:21] LABS: APPEARANCE,URINE CLOUDY (CLEAR); GLUCOSE, URINE (UA) 500 mg/dL (NEGATIVE); KETONES,URINE NEGATIVE (NEGATIVE); LEUKOCYTE ESTERASE ,URINE NEGATIVE (NEGATIVE); NITRATE,URINE NEGATIVE (NEGATIVE); OCCULT BLOOD,URINE NEGATIVE (NEGATIVE); PH,URINE 5.5 (5.0-8.0); PROTEIN,URINE POS 1+ (NEGATIVE)
[2018-11-07 23:23] LABS: BILIRUBIN,URINE PRELIM. POSITIVE (NEGATIVE)
[2018-11-07 23:31] LABS: BACTERIA,URINE Rare /HPF (None Seen); RBC,URINE None Seen /HPF (0-2); WBC,URINE 0-2 /HPF (0-5)
[2018-11-07 23:32] LABS: COARSE GRANULAR CASTS,URINE 0-2 /LPF (None Seen); SQUAMOUS EPITHELIAL CELL,UR Few /LPF (None Seen)
[2018-11-08 00:21] VITALS: BP 132/81
[2018-11-08 05:07] VITALS: BP 114/72
[2018-11-08 06:21] LABS: BASOPHILS % (AUTO) 0.5 % (0.0-2.0); EOSINOPHILS % (AUTO) 3.9 % (1.0-6.0); HEMATOCRIT 26.6 % (41-53); HEMOGLOBIN 9.3 g/dL (13.5-17.5); MEAN CORPUSCULAR HEMOGLOBIN 32.1 pg (26.0-34.0); MEAN CORPUSCULAR VOLUME 92 fL (80-100); MONOCYTES % (AUTO) 10.5 % (2.0-9.0); NEUTROPHILS # (AUTO) 7.2 K/uL (1.8-7.7); NEUTROPHILS % (AUTO) 75.1 % (40.0-70.0); PLATELET COUNT (AUTO) 389 K/uL (150-450); RED CELL DISTRIBUTION WIDTH 12.8 % (11.5-14.5)
[2018-11-08] MEDS: ACETAMINOPHEN 325 MG TABLET PO PRN ×3 (06:25→22:46)
[2018-11-08] MEDS: INSULIN LISPRO 100 UNITS/ML SQ PRN ×3 (06:30→17:52)
[2018-11-08 06:36] LABS: CALCIUM, TOTAL 8.7 mg/dL (8.8-10.5); CREATININE 1.25 mg/dL (0.60-1.30); POTASSIUM 3.8 mmol/L (3.5-5.1)
[2018-11-08 06:42] LABS: GLUCOMETER DEV NAME(LOC) 6N.1; GLUCOSE,POINT OF CARE 176 MG/DL (70-110)
[2018-11-08 06:51] LABS: VANCOMYCIN,RANDOM 19.8 mcg/mL (25.0-50.0)
[2018-11-08 07:37] VITALS: BP 126/78
[2018-11-08] MEDS: HEPARIN SODIUM,PORCINE 5,000 UNITS/ML VIAL SQ SCH (08:18)
[2018-11-08] MEDS: VANCOMYCIN HCL 1 GM/D5% WATER 200 ML IV SCH ×2 (08:18→21:14)
[2018-11-08] MEDS: GABAPENTIN 300 MG CAPSULE PO SCH ×2 (08:18→20:28)
[2018-11-08] MEDS: DOCUSATE SODIUM 100 MG CAPSULE PO SCH ×2 (08:18→20:28)
[2018-11-08] MEDS: FAMOTIDINE 20 MG TABLET PO SCH (08:18)
[2018-11-08] MEDS: OxyCODONE HCL/ACETAMINOPHEN 5-325 MG TABLET PO PRN ×2 (08:28→20:28)
[2018-11-08] MEDS: CITALOPRAM HYDROBROMIDE 10 MG TABLET PO SCH (09:17)
[2018-11-08 11:59] VITALS: BP 115/72
[2018-11-08 12:17] LABS: GLUCOMETER DEV NAME(LOC) 6N.1; GLUCOSE,POINT OF CARE 258 MG/DL (70-110)
[2018-11-08] MEDS: PIPERACILLIN/TAZO 3.375 GM/D5W 50 ML IV SCH ×2 (14:44→20:27)
[2018-11-08 16:38] VITALS: BP 136/70
[2018-11-08 17:56] LABS: GLUCOMETER DEV NAME(LOC) 6N.1; GLUCOSE,POINT OF CARE 180 MG/DL (70-110)
[2018-11-08 20:00] VITALS: BP 131/78
[2018-11-08] MEDS ORDERED: SODIUM CHLORIDE 0.9% 500 ML IV ONE (20:25)
[2018-11-08] MEDS: INSULIN GLARGINE,HUM.REC.ANLOG 100 UNITS/ML SQ SCH (20:33)
[2018-11-08 21:27] LABS: GLUCOMETER DEV NAME(LOC) 6N.1; GLUCOSE,POINT OF CARE 226 MG/DL (70-110)
[2018-11-09] VITALS (7 sets, daily range): BP systolic 97–142; BP diastolic 68–97
[2018-11-09] MEDS: PIPERACILLIN/TAZO 3.375 GM/D5W 50 ML IV SCH ×3 (02:03→20:00)
[2018-11-09] MEDS ORDERED: ACETAMINOPHEN 650 MG RECTAL SUPPOSITORY PR ONE (06:00)
[2018-11-09 06:07] LABS: GLUCOMETER DEV NAME(LOC) 6N.1; GLUCOSE,POINT OF CARE 193 MG/DL (70-110)
[2018-11-09 06:17] LABS: BASOPHILS % (AUTO) 0.6 % (0.0-2.0); EOSINOPHILS % (AUTO) 2.7 % (1.0-6.0); HEMATOCRIT 27.7 % (41-53); HEMOGLOBIN 9.6 g/dL (13.5-17.5); LYMPHOCYTES # (AUTO) 0.8 K/uL (1.0-4.8); MEAN CORPUSCULAR HEMOGLOBIN 31.7 pg (26.0-34.0); MEAN CORPUSCULAR HGB CONC 34.4 G/dL (31.0-37.0); MEAN CORPUSCULAR VOLUME 92 fL (80-100); MONOCYTES # (AUTO) 1.1 K/uL (0.1-1.0); MONOCYTES % (AUTO) 8.5 % (2.0-9.0); NEUTROPHILS # (AUTO) 10.6 K/uL (1.8-7.7); NEUTROPHILS % (AUTO) 82.2 % (40.0-70.0); PLATELET COUNT (AUTO) 460 K/uL (150-450); RED BLOOD CELL COUNT(AUTO) 3.01 MIL/uL (4.50-5.90); RED CELL DISTRIBUTION WIDTH 12.9 % (11.5-14.5)
[2018-11-09] MEDS ORDERED: MICROFIBRILLAR COLLAGEN 1 GM PACKAGE TP ONE (06:18)
[2018-11-09] MEDS ORDERED: VANCOMYCIN HCL 1 GM/VIAL ONE (06:18)
[2018-11-09] MEDS ORDERED: MUPIROCIN CALCIUM 2% 22 GM OINTMENT ONE (06:20)
[2018-11-09] MEDS ORDERED: SODIUM CHLORIDE 0.9% 0 ML ONE (06:24)
[2018-11-09 06:25] LABS: INR 1.1 (0.9-1.1); PROTHROMBIN TIME 11.2 SEC (9.4-11.6)
[2018-11-09] MEDS ORDERED: BACITRACIN 50,000 UNITS/VIAL ONE ×2 (06:25→06:26)
[2018-11-09 06:28] LABS: CALCIUM, TOTAL 8.5 mg/dL (8.8-10.5); CREATININE 1.35 mg/dL (0.60-1.30); POTASSIUM 3.9 mmol/L (3.5-5.1)
[2018-11-09] MEDS ORDERED: RINGERS SOLUTION,LACTATED 1,000 ML IV ONE ×2 (06:30→06:45)
[2018-11-09] MEDS ORDERED: FentaNYL CITRATE-PF 100 MCG/2 ML VIAL IVP PRN ×2 (07:30→17:15)
[2018-11-09] MEDS ORDERED: BUPIVACAINE LIPOSOME/PF 1.3%-13.3MG/ML SUSPENSION 20 ML VIAL INJ ONE (07:45)
[2018-11-09] MEDS ORDERED: BUPIVACAINE HCL/PF 0.25% 30 ML VIAL ONE (07:47)
[2018-11-09] MEDS: OXYGEN THERAPY IH SCH ×2 (08:00→20:49)
[2018-11-09] MEDS ORDERED: HYDROmorphone 2 MG/ML SYRINGE ONE (08:27)
[2018-11-09] MEDS: HYDROmorphone 2 MG/ML SYRINGE IVP PRN ×2 (08:29→08:55)
[2018-11-09] MEDS ORDERED: FentaNYL CITRATE-PF 100 MCG/2 ML VIAL ONE (08:34)
[2018-11-09] MEDS: VANCOMYCIN HCL 1 GM/D5% WATER 200 ML IV SCH (10:17)
[2018-11-09] MEDS: CITALOPRAM HYDROBROMIDE 10 MG TABLET PO SCH (10:17)
[2018-11-09] MEDS: GABAPENTIN 300 MG CAPSULE PO SCH ×2 (10:18→21:07)
[2018-11-09] MEDS: DOCUSATE SODIUM 100 MG CAPSULE PO SCH ×2 (10:18→20:50)
[2018-11-09] MEDS: FAMOTIDINE 20 MG TABLET PO SCH (10:18)
[2018-11-09] MEDS: OxyCODONE HCL/ACETAMINOPHEN 5-325 MG TABLET PO PRN (10:18)
[2018-11-09] MEDS: INSULIN LISPRO 100 UNITS/ML SQ PRN ×3 (12:28→21:11)
[2018-11-09] MEDS ORDERED: HYDROmorphone 2 MG/ML SYRINGE IVP PRN ×2 (12:45→17:15)
[2018-11-09] MEDS ORDERED: ONDANSETRON HCL 4 MG/2 ML VIAL IVP ONE (14:30)
[2018-11-09] MEDS ORDERED: IOVERSOL 350 MG/ML 100 ML VIAL ONE (14:52)
[2018-11-09] MEDS ORDERED: SODIUM CHLORIDE 0.9% 100 ML ONE (14:52)
[2018-11-09 15:11] LABS: BASOPHILS % (AUTO) 0.5 % (0.0-2.0); HEMATOCRIT 28.1 % (41-53); HEMOGLOBIN 9.5 g/dL (13.5-17.5); LYMPHOCYTES # (AUTO) 1.4 K/uL (1.0-4.8); LYMPHOCYTES % (AUTO) 11.8 % (22.0-44.0); MEAN CORPUSCULAR HEMOGLOBIN 31.3 pg (26.0-34.0); MEAN CORPUSCULAR HGB CONC 33.6 G/dL (31.0-37.0); MEAN CORPUSCULAR VOLUME 93 fL (80-100); MONOCYTES # (AUTO) 1.1 K/uL (0.1-1.0); MONOCYTES % (AUTO) 8.8 % (2.0-9.0); NEUTROPHILS # (AUTO) 9.1 K/uL (1.8-7.7); NEUTROPHILS % (AUTO) 75.9 % (40.0-70.0); PLATELET COUNT (AUTO) 454 K/uL (150-450); RED BLOOD CELL COUNT(AUTO) 3.03 MIL/uL (4.50-5.90); RED CELL DISTRIBUTION WIDTH 12.7 % (11.5-14.5)
[2018-11-09 15:22] LABS: CALCIUM, TOTAL 8.6 mg/dL (8.8-10.5); CREATININE 1.49 mg/dL (0.60-1.30); POTASSIUM 3.3 mmol/L (3.5-5.1)
[2018-11-09 15:25] LABS: INR 1.1 (0.9-1.1); PROTHROMBIN TIME 11.6 SEC (9.4-11.6)
[2018-11-09 15:27] LABS: ALBUMIN 2.4 g/dL (3.4-5.0); BILIRUBIN,TOTAL 0.9 mg/dL (0.1-1.0); TOTAL PROTEIN, SERUM 7.6 g/dL (6.4-8.2)
[2018-11-09] MEDS ORDERED: LACTULOSE 20 GM/30 ML SOLUTION UDCUP PO ONE (17:15)
[2018-11-09] MEDS ORDERED: VANCOMYCIN HCL 1 GM/D5% WATER 200 ML IV SCH (17:15)
[2018-11-09] MEDS: OxyCODONE HCL/ACETAMINOPHEN 10-325 MG TABLET PO PRN (17:46)
[2018-11-09] MEDS: VANCOMYCIN HCL 500 MG in DEXTROSE 5%-WATER 100 ML IV SCH (20:50)
[2018-11-09] MEDS ORDERED: SODIUM CHLORIDE 0.9% 250 ML IV ONE (21:04)
[2018-11-09] MEDS: INSULIN GLARGINE,HUM.REC.ANLOG 100 UNITS/ML SQ SCH (21:10)
[2018-11-09 21:31] LABS: GLUCOMETER DEV NAME(LOC) 6N.1; GLUCOSE,POINT OF CARE 177 MG/DL (70-110)
[2018-11-09 21:31] LABS: GLUCOMETER DEV NAME(LOC) 6N.1; GLUCOSE,POINT OF CARE 234 MG/DL (70-110)
[2018-11-09 22:51] LABS: GLUCOSE,POINT OF CARE 241 MG/DL (70-110)
[2018-11-10] VITALS (9 sets, daily range): BP systolic 116–142; BP diastolic 20–84
[2018-11-10] MEDS: PIPERACILLIN/TAZO 3.375 GM/D5W 50 ML IV SCH ×4 (01:29→20:08)
[2018-11-10] MEDS: OxyCODONE HCL/ACETAMINOPHEN 10-325 MG TABLET PO PRN ×4 (01:29→18:10)
[2018-11-10 05:23] LABS: ANION GAP 5 mmol/L (8-16); CALCIUM, TOTAL 8.3 mg/dL (8.8-10.5); CARBON DIOXIDE 27 mmol/L (22-29); CHLORIDE 97 mmol/L (98-107); CREATININE 1.08 mg/dL (0.60-1.30); GLOMERULAR FILTR. RATE CALC > 60 mL/min (>60); GLUCOSE,RANDOM 220 mg/dL (70-110); POTASSIUM 3.8 mmol/L (3.5-5.1); SODIUM SERUM 129 mmol/L (136-145); UREA NITROGEN, BLOOD 12 mg/dL (7-18); VANCOMYCIN,RANDOM 20.2 mcg/mL (25.0-50.0)
[2018-11-10] MEDS ORDERED: EPHEDrine SULFATE 50 MG/ML VIAL IM ONE (05:53)
[2018-11-10] MEDS ORDERED: SUCCINYLCHOLINE CHLORIDE 20 MG/ML 10 ML VIAL IVP ONE (05:53)
[2018-11-10] MEDS ORDERED: ROCURONIUM BROMIDE 10 MG/ML 5 ML VIAL IVP ONE (05:53)
[2018-11-10] MEDS ORDERED: ONDANSETRON HCL 4 MG/2 ML VIAL IVP ONE (05:53)
[2018-11-10] MEDS ORDERED: 0.9% SODIUM CHLORIDE 10 ML VIAL IVP ONE (05:53)
[2018-11-10] MEDS ORDERED: FentaNYL CITRATE-PF 100 MCG/2 ML VIAL IVP ONE (05:53)
[2018-11-10] MEDS ORDERED: PROPOFOL 1% 20 ML VIAL IVP ONE (05:53)
[2018-11-10] MEDS: INSULIN LISPRO 100 UNITS/ML SQ PRN ×4 (06:46→20:24)
[2018-11-10] MEDS ORDERED: RINGERS SOLUTION,LACTATED 1,000 ML IV ONE (07:07)
[2018-11-10] MEDS: VANCOMYCIN HCL 500 MG in DEXTROSE 5%-WATER 100 ML IV SCH (07:59)
[2018-11-10] MEDS: OXYGEN THERAPY IH SCH ×2 (08:26→20:00)
[2018-11-10] MEDS: ENOXAPARIN SODIUM 30 MG/0.3 ML PF SYRINGE SQ SCH ×2 (08:31→20:08)
[2018-11-10] MEDS: DOCUSATE SODIUM 100 MG CAPSULE PO SCH ×2 (08:32→20:08)
[2018-11-10] MEDS: CITALOPRAM HYDROBROMIDE 10 MG TABLET PO SCH (08:32)
[2018-11-10] MEDS: GABAPENTIN 300 MG CAPSULE PO SCH ×2 (08:32→20:08)
[2018-11-10] MEDS: FAMOTIDINE 20 MG TABLET PO SCH (08:32)
[2018-11-10 08:41] LABS: GLUCOSE,POINT OF CARE 195 MG/DL (70-110)
[2018-11-10 08:47] LABS: GLUCOSE,POINT OF CARE 278 MG/DL (70-110)
[2018-11-10] MEDS: MAGNESIUM HYDROXIDE SUSPENSION 30 ML UDCUP PO PRN (08:56)
[2018-11-10 12:31] LABS: GLUCOSE,POINT OF CARE 226 MG/DL (70-110)
[2018-11-10] MEDS ORDERED: SODIUM CHLORIDE 0.9% 250 ML IV ONE (17:52)
[2018-11-10] MEDS: VANCOMYCIN HCL 1 GM/D5% WATER 200 ML IV SCH (18:11)
[2018-11-10 20:11] LABS: GLUCOMETER DEV NAME(LOC) 5S.2A; GLUCOSE,POINT OF CARE 187 MG/DL (70-110)
[2018-11-10] MEDS: INSULIN GLARGINE,HUM.REC.ANLOG 100 UNITS/ML SQ SCH (20:24)
[2018-11-11 00:03] VITALS: BP 122/70
[2018-11-11] MEDS: PIPERACILLIN/TAZO 3.375 GM/D5W 50 ML IV SCH ×4 (02:09→20:19)
[2018-11-11 05:17] VITALS: BP 131/85
[2018-11-11] MEDS: VANCOMYCIN HCL 1 GM/D5% WATER 200 ML IV SCH ×2 (05:41→18:19)
[2018-11-11] MEDS: INSULIN LISPRO 100 UNITS/ML SQ PRN ×4 (06:02→21:13)
[2018-11-11 07:06] LABS: BASOPHILS % (AUTO) 0.6 % (0.0-2.0); EOSINOPHILS % (AUTO) 5.2 % (1.0-6.0); HEMOGLOBIN 9.3 g/dL (13.5-17.5); LYMPHOCYTES # (AUTO) 0.8 K/uL (1.0-4.8); LYMPHOCYTES % (AUTO) 11.9 % (22.0-44.0); MEAN CORPUSCULAR HEMOGLOBIN 31.6 pg (26.0-34.0); MEAN CORPUSCULAR HGB CONC 34.4 G/dL (31.0-37.0); MEAN CORPUSCULAR VOLUME 92 fL (80-100); NEUTROPHILS # (AUTO) 4.7 K/uL (1.8-7.7); NEUTROPHILS % (AUTO) 68.3 % (40.0-70.0); PLATELET COUNT (AUTO) 488 K/uL (150-450); RED BLOOD CELL COUNT(AUTO) 2.94 MIL/uL (4.50-5.90); RED CELL DISTRIBUTION WIDTH 12.5 % (11.5-14.5)
[2018-11-11 07:21] LABS: ANION GAP 8 mmol/L (8-16); CALCIUM, TOTAL 8.3 mg/dL (8.8-10.5); CARBON DIOXIDE 28 mmol/L (22-29); CHLORIDE 97 mmol/L (98-107); CREATININE 1.16 mg/dL (0.60-1.30); GLOMERULAR FILTR. RATE CALC > 60 mL/min (>60); GLUCOSE,RANDOM 198 mg/dL (70-110); POTASSIUM 4.1 mmol/L (3.5-5.1); SODIUM SERUM 133 mmol/L (136-145); UREA NITROGEN, BLOOD 11 mg/dL (7-18)
[2018-11-11 07:33] VITALS: BP 117/65
[2018-11-11] MEDS: DOCUSATE SODIUM 100 MG CAPSULE PO SCH ×2 (08:04→20:19)
[2018-11-11] MEDS: CITALOPRAM HYDROBROMIDE 10 MG TABLET PO SCH (08:04)
[2018-11-11] MEDS: GABAPENTIN 300 MG CAPSULE PO SCH ×2 (08:04→20:19)
[2018-11-11] MEDS: MIDODRINE HCL 2.5 MG TABLET PO SCH (08:04)
[2018-11-11] MEDS: ENOXAPARIN SODIUM 30 MG/0.3 ML PF SYRINGE SQ SCH ×2 (08:05→20:19)
[2018-11-11] MEDS: OxyCODONE HCL/ACETAMINOPHEN 10-325 MG TABLET PO PRN (08:05)
[2018-11-11] MEDS: FAMOTIDINE 20 MG TABLET PO SCH (08:05)
[2018-11-11] MEDS: OXYGEN THERAPY IH SCH ×2 (08:06→20:00)
[2018-11-11 10:43] VITALS: BP 106/75
[2018-11-11 15:25] VITALS: BP 112/60
[2018-11-11 17:36] LABS: GLUCOMETER DEV NAME(LOC) 5S.2A; GLUCOSE,POINT OF CARE 226 MG/DL (70-110)
[2018-11-11 20:08] VITALS: BP 110/50
[2018-11-11] MEDS: INSULIN GLARGINE,HUM.REC.ANLOG 100 UNITS/ML SQ SCH (21:12)
[2018-11-12] VITALS (7 sets, daily range): BP systolic 108–150; BP diastolic 63–82
[2018-11-12] MEDS: OxyCODONE HCL/ACETAMINOPHEN 10-325 MG TABLET PO PRN ×4 (00:47→20:08)
[2018-11-12] MEDS: PIPERACILLIN/TAZO 3.375 GM/D5W 50 ML IV SCH ×3 (01:15→14:31)
[2018-11-12] MEDS: VANCOMYCIN HCL 1 GM/D5% WATER 200 ML IV SCH (05:52)
[2018-11-12] MEDS: INSULIN LISPRO 100 UNITS/ML SQ PRN ×4 (05:55→21:49)
[2018-11-12 07:46] LABS: GLUCOMETER DEV NAME(LOC) 5S.1; GLUCOSE,POINT OF CARE 243 MG/DL (70-110)
[2018-11-12 07:46] LABS: GLUCOMETER DEV NAME(LOC) 5S.1; GLUCOSE,POINT OF CARE 193 MG/DL (70-110)
[2018-11-12 07:46] LABS: GLUCOMETER DEV NAME(LOC) 5S.1; GLUCOSE,POINT OF CARE 219 MG/DL (70-110)
[2018-11-12 07:46] LABS: GLUCOMETER DEV NAME(LOC) 5S.1; GLUCOSE,POINT OF CARE 179 MG/DL (70-110)
[2018-11-12] MEDS: OXYGEN THERAPY IH SCH (08:00)
[2018-11-12 08:03] LABS: ANION GAP 6 mmol/L (8-16); CALCIUM, TOTAL 8.5 mg/dL (8.8-10.5); CARBON DIOXIDE 30 mmol/L (22-29); CHLORIDE 96 mmol/L (98-107); CREATININE 1.13 mg/dL (0.60-1.30); GLOMERULAR FILTR. RATE CALC > 60 mL/min (>60); GLUCOSE,RANDOM 208 mg/dL (70-110); POTASSIUM 4.1 mmol/L (3.5-5.1); SODIUM SERUM 132 mmol/L (136-145); UREA NITROGEN, BLOOD 10 mg/dL (7-18); VANCOMYCIN,RANDOM 28.6 mcg/mL (25.0-50.0)
[2018-11-12] MEDS: GABAPENTIN 300 MG CAPSULE PO SCH ×2 (08:18→20:09)
[2018-11-12] MEDS: ENOXAPARIN SODIUM 30 MG/0.3 ML PF SYRINGE SQ SCH ×2 (08:18→20:09)
[2018-11-12] MEDS: MIDODRINE HCL 2.5 MG TABLET PO SCH (08:18)
[2018-11-12] MEDS: CITALOPRAM HYDROBROMIDE 10 MG TABLET PO SCH (08:18)
[2018-11-12] MEDS: FAMOTIDINE 20 MG TABLET PO SCH (08:18)
[2018-11-12] MEDS: DOCUSATE SODIUM 100 MG CAPSULE PO SCH ×2 (08:18→20:08)
[2018-11-12] MEDS: MAGNESIUM HYDROXIDE SUSPENSION 30 ML UDCUP PO PRN (08:39)
[2018-11-12 11:25] LABS: GLUCOMETER DEV NAME(LOC) 5N.2; GLUCOSE,POINT OF CARE 241 MG/DL (70-110)
[2018-11-12 20:31] LABS: GLUCOMETER DEV NAME(LOC) 5S.2A; GLUCOSE,POINT OF CARE 301 MG/DL (70-110)
[2018-11-12 20:31] LABS: GLUCOMETER DEV NAME(LOC) 5S.2A; GLUCOSE,POINT OF CARE 251 MG/DL (70-110)
[2018-11-12] MEDS: INSULIN GLARGINE,HUM.REC.ANLOG 100 UNITS/ML SQ SCH (21:49)
[2018-11-13 03:57] LABS: GLUCOMETER DEV NAME(LOC) 5N.2; GLUCOSE,POINT OF CARE 135 MG/DL (70-110)
[2018-11-13 04:04] VITALS: BP 146/93
[2018-11-13] MEDS: INSULIN LISPRO 100 UNITS/ML SQ PRN ×2 (06:03→12:03)
[2018-11-13 07:07] LABS: GLUCOMETER DEV NAME(LOC) 5N.1; GLUCOSE,POINT OF CARE 151 MG/DL (70-110)
[2018-11-13 07:30] VITALS: BP 126/89
[2018-11-13] MEDS: OXYGEN THERAPY IH SCH (08:00)
[2018-11-13] MEDS: CITALOPRAM HYDROBROMIDE 10 MG TABLET PO SCH (08:44)
[2018-11-13] MEDS: GABAPENTIN 300 MG CAPSULE PO SCH (08:45)
[2018-11-13] MEDS: FAMOTIDINE 20 MG TABLET PO SCH (08:45)
[2018-11-13] MEDS: MIDODRINE HCL 2.5 MG TABLET PO SCH (08:45)
[2018-11-13] MEDS: DOCUSATE SODIUM 100 MG CAPSULE PO SCH (08:45)
[2018-11-13] MEDS: OxyCODONE HCL/ACETAMINOPHEN 10-325 MG TABLET PO PRN ×2 (08:46→13:02)
[2018-11-13] MEDS: ENOXAPARIN SODIUM 30 MG/0.3 ML PF SYRINGE SQ SCH (08:46)
[2018-11-13 11:06] VITALS: BP 120/83
[2018-11-13] MEDS ORDERED: DOCU100C33 PO (13:34)
[2018-11-13] MEDS ORDERED: ENOX30DI4 SQ (13:34)
[2018-11-13] MEDS ORDERED: FAMO-136 PO (13:35)
[2018-11-13] MEDS ORDERED: ACET-3207 PO (13:37)
[2018-11-13] MEDS ORDERED: HYDR1SYR3 IVP (13:38)
[2018-11-13] MEDS ORDERED: HYDR2TAB5 PO (13:38)
[2018-11-13] MEDS ORDERED: INSU100V SQ (13:39)
[2018-11-13] MEDS ORDERED: MOM30 PO (13:39)
[2018-11-13] MEDS ORDERED: OXYC-43 PO (13:40)
[2018-11-14 21:46] LABS: GLUCOMETER DEV NAME(LOC) 5S.2A; GLUCOSE,POINT OF CARE 218 MG/DL (70-110)
== END 2018-11-13 13:50 | DRG 617 ==
LOC: EMS 10:52 → 6N 14:51 → ICU 11-09 15:50 → 5S 11-10 15:40
PROVIDERS: ADMIT Internal Medicine; ATTEND Internal Medicine
PROC: 0KNT0ZZ Release Left Lower Leg Muscle, Open Approach (ICD-10-PCS; 2018-11-09)
PROC: 0KNT0ZZ Release Left Lower Leg Muscle, Open Approach (ICD-10-PCS; 2018-11-09)
PROC: 0KNT0ZZ Release Left Lower Leg Muscle, Open Approach (ICD-10-PCS; 2018-11-09)
PROC: 0Y6J0Z2 Detachment at Left Lower Leg, Mid, Open Approach (ICD-10-PCS; principal; 2018-11-09 07:00)
DX: E11.69 Type 2 diabetes mellitus with other specified complication (principal); L02.612 Cutaneous abscess of left foot; R65.10 Systemic inflammatory response syndrome (SIRS) of non-infectious origin without acute organ dysfunction; E44.0 Moderate protein-calorie malnutrition; L03.116 Cellulitis of left lower limb; M86.8X7 Other osteomyelitis, ankle and foot; L97.409 Non-pressure chronic ulcer of unspecified heel and midfoot with unspecified severity; S93.326A Dislocation of tarsometatarsal joint of unspecified foot, initial encounter; E11.40 Type 2 diabetes mellitus with diabetic neuropathy, unspecified; E11.65 Type 2 diabetes mellitus with hyperglycemia; F41.9 Anxiety disorder, unspecified; I25.10 Atherosclerotic heart disease of native coronary artery without angina pectoris; F32.9 Major depressive disorder, single episode, unspecified; E78.00 Pure hypercholesterolemia, unspecified; I10 Essential (primary) hypertension; E11.51 Type 2 diabetes mellitus with diabetic peripheral angiopathy without gangrene; E11.610 Type 2 diabetes mellitus with diabetic neuropathic arthropathy; D72.829 Elevated white blood cell count, unspecified; E11.621 Type 2 diabetes mellitus with foot ulcer; L97.509 Non-pressure chronic ulcer of other part of unspecified foot with unspecified severity; Z82.49 Family history of ischemic heart disease and other diseases of the circulatory system; Z79.4 Long term (current) use of insulin; Z87.891 Personal history of nicotine dependence; Z89.411 Acquired absence of right great toe; Z89.512 Acquired absence of left leg below knee
CPT/HCPCS: 70496; 73720; 83605; 85651; 86140; 87040; 87070; 87205; 88307; 93005; 97163; 97166; 97530; 97535; A9585; C9290; G0378; J0330; J1170; J1644; J1650; J1815; J2270; J2405; J2543; J2704; J3010; J3370; J3490; J7030; J7040; J7050; J7060; J7120

== ENCOUNTER 2018-11-13 14:00 | Inpatient (IN) | payer MEDICARE, MEDICAID ==
[~2018-11-13] VITALS: Ht 170.2 cm; Wt 88.0 kg
[~2018-11-13 14:00] MED LIST changes: +ACET-3207 PO; +DOCU100C33 PO; +ENOX30DI4 SQ; +FAMO-136 PO; +HYDR1SYR3 IVP; +HYDR2TAB5 PO; +INSU100V SQ; +MOM30 PO; +OXYC-43 PO
[2018-11-13] MEDS ORDERED: HYDROCODONE/ACETAMINOPHEN 5-325 MG TABLET PO PRN (15:30)
[2018-11-13] MEDS ORDERED: INSULIN LISPRO 100 UNITS/ML SQ PRN (16:00)
[2018-11-13] MEDS ORDERED: GLUCAGON,HUMAN RECOMBINANT 1 MG VIAL IM PRN (16:00)
[2018-11-13] MEDS ORDERED: DEXTROSE 50%-WATER 25 GM/50 ML SYRINGE IVP PRN (16:15)
[2018-11-13 16:34] VITALS: BP 111/70
[2018-11-13 17:16] LABS: GLUCOMETER DEV NAME(LOC) 2WR.2; GLUCOSE,POINT OF CARE 218 MG/DL (70-110)
[2018-11-13] MEDS ORDERED: INFLUENZA VIRUS VACCINE QVS 2019-20 (3YR+)/PF 60 MCG/0.5 ML SYRINGE IM ONE (18:00)
[2018-11-13] MEDS ORDERED: PNEUMOCOCCAL VACCINE POLYVALENT 0.5 ML VIAL [PPSV23] IM ONE (18:00)
[2018-11-13] MEDS: INSULIN LISPRO 100 UNITS/ML SQ PRN (19:01)
[2018-11-13] MEDS: OxyCODONE HCL/ACETAMINOPHEN 10-325 MG TABLET PO PRN (19:04)
[2018-11-13] MEDS: DOCUSATE SODIUM 100 MG CAPSULE PO SCH (21:02)
[2018-11-13] MEDS: GABAPENTIN 300 MG CAPSULE PO SCH (21:02)
[2018-11-13] MEDS: SENNA 187 MG TABLET PO SCH (21:02)
[2018-11-13] MEDS: ENOXAPARIN SODIUM 30 MG/0.3 ML PF SYRINGE SQ SCH (21:03)
[2018-11-13] MEDS: INSULIN GLARGINE,HUM.REC.ANLOG 100 UNITS/ML SQ SCH (21:10)
[2018-11-13 22:01] LABS: GLUCOMETER DEV NAME(LOC) 2WR.2; GLUCOSE,POINT OF CARE 133 MG/DL (70-110)
[2018-11-14] VITALS: BP 115/62
[2018-11-14 06:31] LABS: GLUCOMETER DEV NAME(LOC) 2WR.1B; GLUCOSE,POINT OF CARE 190 MG/DL (70-110)
[2018-11-14 06:34] LABS: BASOPHILS % (AUTO) 1.2 % (0.0-2.0); EOSINOPHILS % (AUTO) 7.1 % (1.0-6.0); HEMATOCRIT 27.6 % (41-53); HEMOGLOBIN 9.6 g/dL (13.5-17.5); LYMPHOCYTES # (AUTO) 1.4 K/uL (1.0-4.8); LYMPHOCYTES % (AUTO) 26.2 % (22.0-44.0); MEAN CORPUSCULAR HEMOGLOBIN 31.8 pg (26.0-34.0); MEAN CORPUSCULAR HGB CONC 34.7 G/dL (31.0-37.0); MEAN CORPUSCULAR VOLUME 92 fL (80-100); MONOCYTES # (AUTO) 0.6 K/uL (0.1-1.0); MONOCYTES % (AUTO) 10.9 % (2.0-9.0); NEUTROPHILS # (AUTO) 2.9 K/uL (1.8-7.7); NEUTROPHILS % (AUTO) 54.6 % (40.0-70.0); PLATELET COUNT (AUTO) 653 K/uL (150-450); RED BLOOD CELL COUNT(AUTO) 3.01 MIL/uL (4.50-5.90); RED CELL DISTRIBUTION WIDTH 12.9 % (11.5-14.5)
[2018-11-14 07:07] LABS: ALANINE AMINOTRANSFERASE 27 U/L (12-78); ALBUMIN 2.1 g/dL (3.4-5.0); ALKALINE PHOSPHATASE 151 U/L (46-116); ANION GAP 5 mmol/L (8-16); ASPARTATE AMINOTRANSFERASE 13 U/L (15-37); BILIRUBIN,TOTAL 0.3 mg/dL (0.1-1.0); CARBON DIOXIDE 29 mmol/L (22-29); CHLORIDE 98 mmol/L (98-107); GLOMERULAR FILTR. RATE CALC > 60 mL/min (>60); GLUCOSE,RANDOM 197 mg/dL (70-110); POTASSIUM 4.5 mmol/L (3.5-5.1); SODIUM SERUM 132 mmol/L (136-145); TOTAL PROTEIN, SERUM 7.6 g/dL (6.4-8.2); UREA NITROGEN, BLOOD 15 mg/dL (7-18)
[2018-11-14 07:19] VITALS: BP 115/70
[2018-11-14] MEDS: MIDODRINE HCL 2.5 MG TABLET PO SCH (07:46)
[2018-11-14] MEDS: DOCUSATE SODIUM 100 MG CAPSULE PO SCH ×2 (07:46→20:51)
[2018-11-14] MEDS: FAMOTIDINE 20 MG TABLET PO SCH (07:46)
[2018-11-14] MEDS: CITALOPRAM HYDROBROMIDE 10 MG TABLET PO SCH (07:46)
[2018-11-14] MEDS: GABAPENTIN 300 MG CAPSULE PO SCH ×2 (07:46→20:51)
[2018-11-14] MEDS: ENOXAPARIN SODIUM 30 MG/0.3 ML PF SYRINGE SQ SCH ×2 (07:47→20:53)
[2018-11-14] MEDS: INSULIN LISPRO 100 UNITS/ML SQ PRN ×4 (07:51→21:03)
[2018-11-14] MEDS: OxyCODONE HCL/ACETAMINOPHEN 10-325 MG TABLET PO PRN ×2 (07:54→20:52)
[2018-11-14 13:40] VITALS: BP 124/75
[2018-11-14 13:45] VITALS: BP 95/59
[2018-11-14 13:50] VITALS: BP 102/66
[2018-11-14 15:33] VITALS: BP 122/71
[2018-11-14 17:01] LABS: GLUCOMETER DEV NAME(LOC) 2WR.1B; GLUCOSE,POINT OF CARE 218 MG/DL (70-110)
[2018-11-14 18:05] LABS: GLUCOMETER DEV NAME(LOC) 2WR.1B; GLUCOSE,POINT OF CARE 169 MG/DL (70-110)
[2018-11-14] MEDS: SENNA 187 MG TABLET PO SCH (20:51)
[2018-11-14] MEDS: MELATONIN 3 MG TABLET PO PRN (20:52)
[2018-11-14] MEDS: INSULIN GLARGINE,HUM.REC.ANLOG 100 UNITS/ML SQ SCH (21:02)
[2018-11-14 21:51] LABS: GLUCOMETER DEV NAME(LOC) 2WR.2; GLUCOSE,POINT OF CARE 196 MG/DL (70-110)
[2018-11-15 03:02] VITALS: BP 127/85
[2018-11-15 06:16] LABS: GLUCOMETER DEV NAME(LOC) 2WR.1B; GLUCOSE,POINT OF CARE 165 MG/DL (70-110)
[2018-11-15 07:57] VITALS: BP 116/82
[2018-11-15] MEDS: OxyCODONE HCL/ACETAMINOPHEN 10-325 MG TABLET PO PRN ×2 (08:11→20:28)
[2018-11-15] MEDS: MULTIVITAMINS WITH MINERALS, THERAPEUTIC TABLET PO SCH (08:11)
[2018-11-15] MEDS: GABAPENTIN 300 MG CAPSULE PO SCH ×2 (08:11→20:28)
[2018-11-15] MEDS: MIDODRINE HCL 2.5 MG TABLET PO SCH (08:11)
[2018-11-15] MEDS: ENOXAPARIN SODIUM 30 MG/0.3 ML PF SYRINGE SQ SCH ×2 (08:12→20:27)
[2018-11-15] MEDS: FAMOTIDINE 20 MG TABLET PO SCH (08:12)
[2018-11-15] MEDS: DOCUSATE SODIUM 100 MG CAPSULE PO SCH ×2 (08:12→20:28)
[2018-11-15] MEDS: CITALOPRAM HYDROBROMIDE 10 MG TABLET PO SCH (08:13)
[2018-11-15] MEDS: INSULIN LISPRO 100 UNITS/ML SQ PRN ×3 (08:18→20:33)
[2018-11-15 14:00] VITALS: BP 92/51
[2018-11-15 14:05] VITALS: BP 104/59
[2018-11-15 15:00] VITALS: BP_SYST 115; BP_SYST 98; BP_DIAS 59; BP_DIAS 69
[2018-11-15] MEDS ORDERED: MIDODRINE HCL 2.5 MG TABLET PO ONE (15:15)
[2018-11-15 15:44] VITALS: BP 98/59
[2018-11-15 17:21] LABS: GLUCOMETER DEV NAME(LOC) 2WR.1B; GLUCOSE,POINT OF CARE 224 MG/DL (70-110)
[2018-11-15 17:21] LABS: GLUCOMETER DEV NAME(LOC) 2WR.2; GLUCOSE,POINT OF CARE 103 MG/DL (70-110)
[2018-11-15] MEDS: MetFORMIN HCL 500 MG TABLET PO SCH (17:37)
[2018-11-15] MEDS: MELATONIN 3 MG TABLET PO PRN (20:28)
[2018-11-15] MEDS: SENNA 187 MG TABLET PO SCH (20:28)
[2018-11-15 20:50] LABS: GLUCOMETER DEV NAME(LOC) 2WR.2; GLUCOSE,POINT OF CARE 259 MG/DL (70-110)
[2018-11-16] VITALS (8 sets, daily range): BP systolic 100–145; BP diastolic 66–82
[2018-11-16 06:21] LABS: GLUCOMETER DEV NAME(LOC) 2WR.2; GLUCOSE,POINT OF CARE 165 MG/DL (70-110)
[2018-11-16] MEDS ORDERED: MIDODRINE HCL 2.5 MG TABLET PO SCH ×2 (08:00→13:00)
[2018-11-16] MEDS: FAMOTIDINE 20 MG TABLET PO SCH (08:04)
[2018-11-16] MEDS: DOCUSATE SODIUM 100 MG CAPSULE PO SCH ×2 (08:04→20:41)
[2018-11-16] MEDS: MULTIVITAMINS WITH MINERALS, THERAPEUTIC TABLET PO SCH (08:04)
[2018-11-16] MEDS: MetFORMIN HCL 500 MG TABLET PO SCH (08:04)
[2018-11-16] MEDS: CITALOPRAM HYDROBROMIDE 10 MG TABLET PO SCH (08:05)
[2018-11-16] MEDS: GABAPENTIN 300 MG CAPSULE PO SCH ×2 (08:05→20:41)
[2018-11-16] MEDS: ENOXAPARIN SODIUM 30 MG/0.3 ML PF SYRINGE SQ SCH ×2 (08:05→20:42)
[2018-11-16] MEDS: INSULIN LISPRO 100 UNITS/ML SQ PRN ×3 (08:09→21:03)
[2018-11-16] MEDS: OxyCODONE HCL/ACETAMINOPHEN 10-325 MG TABLET PO PRN ×2 (08:12→20:42)
[2018-11-16] MEDS: FERROUS GLUCONATE 324 MG TABLET PO SCH (10:29)
[2018-11-16] MEDS: MetFORMIN HCL 850 MG TABLET PO SCH (16:38)
[2018-11-16 17:41] LABS: GLUCOMETER DEV NAME(LOC) 2WR.1B; GLUCOSE,POINT OF CARE 189 MG/DL (70-110)
[2018-11-16 17:41] LABS: GLUCOMETER DEV NAME(LOC) 2WR.2; GLUCOSE,POINT OF CARE 128 MG/DL (70-110)
[2018-11-16] MEDS: SENNA 187 MG TABLET PO SCH (20:41)
[2018-11-16] MEDS: MELATONIN 3 MG TABLET PO PRN (20:42)
[2018-11-16 22:00] LABS: GLUCOMETER DEV NAME(LOC) 2WR.1B; GLUCOSE,POINT OF CARE 198 MG/DL (70-110)
[2018-11-17] VITALS (9 sets, daily range): BP systolic 92–130; BP diastolic 57–77
[2018-11-17 06:16] LABS: GLUCOMETER DEV NAME(LOC) 2WR.2; GLUCOSE,POINT OF CARE 150 MG/DL (70-110)
[2018-11-17] MEDS: FAMOTIDINE 20 MG TABLET PO SCH (08:13)
[2018-11-17] MEDS: MIDODRINE HCL 5 MG TABLET PO SCH ×2 (08:13→12:34)
[2018-11-17] MEDS: MULTIVITAMINS WITH MINERALS, THERAPEUTIC TABLET PO SCH (08:13)
[2018-11-17] MEDS: GABAPENTIN 300 MG CAPSULE PO SCH ×2 (08:14→20:05)
[2018-11-17] MEDS: ENOXAPARIN SODIUM 30 MG/0.3 ML PF SYRINGE SQ SCH ×2 (08:14→20:06)
[2018-11-17] MEDS: MetFORMIN HCL 850 MG TABLET PO SCH (08:14)
[2018-11-17] MEDS: DOCUSATE SODIUM 100 MG CAPSULE PO SCH ×2 (08:14→20:05)
[2018-11-17] MEDS: CITALOPRAM HYDROBROMIDE 10 MG TABLET PO SCH (08:14)
[2018-11-17] MEDS: FERROUS GLUCONATE 324 MG TABLET PO SCH (08:14)
[2018-11-17] MEDS: INSULIN LISPRO 100 UNITS/ML SQ PRN ×4 (08:17→20:56)
[2018-11-17] MEDS: OxyCODONE HCL/ACETAMINOPHEN 10-325 MG TABLET PO PRN ×2 (08:19→12:33)
[2018-11-17 13:20] LABS: GLUCOMETER DEV NAME(LOC) 2WR.2; GLUCOSE,POINT OF CARE 186 MG/DL (70-110)
[2018-11-17] MEDS: MetFORMIN HCL 500 MG TABLET PO SCH (17:47)
[2018-11-17 18:11] LABS: GLUCOMETER DEV NAME(LOC) 2WR.2; GLUCOSE,POINT OF CARE 146 MG/DL (70-110)
[2018-11-17] MEDS: SENNA 187 MG TABLET PO SCH (20:05)
[2018-11-17 22:10] LABS: GLUCOMETER DEV NAME(LOC) 2WR.2; GLUCOSE,POINT OF CARE 158 MG/DL (70-110)
[2018-11-18 06:05] LABS: GLUCOMETER DEV NAME(LOC) 2WR.1B; GLUCOSE,POINT OF CARE 174 MG/DL (70-110)
[2018-11-18] MEDS ORDERED: GLIMEPIRIDE 2 MG TABLET PO SCH (07:30)
[2018-11-18] MEDS: ENOXAPARIN SODIUM 30 MG/0.3 ML PF SYRINGE SQ SCH ×2 (07:52→20:35)
[2018-11-18] MEDS: MIDODRINE HCL 5 MG TABLET PO SCH ×3 (07:53→20:36)
[2018-11-18] MEDS: MUPIROCIN CALCIUM 2% 22 GM OINTMENT TP SCH (07:53)
[2018-11-18] MEDS: FAMOTIDINE 20 MG TABLET PO SCH (07:53)
[2018-11-18] MEDS: MetFORMIN HCL 500 MG TABLET PO SCH ×2 (07:53→17:41)
[2018-11-18] MEDS: FERROUS GLUCONATE 324 MG TABLET PO SCH (07:53)
[2018-11-18] MEDS: DOCUSATE SODIUM 100 MG CAPSULE PO SCH ×2 (07:54→20:35)
[2018-11-18] MEDS: GABAPENTIN 300 MG CAPSULE PO SCH ×2 (07:54→20:35)
[2018-11-18] MEDS: MULTIVITAMINS WITH MINERALS, THERAPEUTIC TABLET PO SCH (07:54)
[2018-11-18 07:57] VITALS: BP 107/71
[2018-11-18] MEDS: OxyCODONE HCL/ACETAMINOPHEN 10-325 MG TABLET PO PRN ×2 (07:57→15:04)
[2018-11-18] MEDS: INSULIN LISPRO 100 UNITS/ML SQ PRN ×2 (08:02→20:48)
[2018-11-18] MEDS: CITALOPRAM HYDROBROMIDE 20 MG TABLET PO SCH (08:18)
[2018-11-18] MEDS ORDERED: SODIUM CL IRRIG SOLN BOTTLE 250 ML IRRIG ONE (10:18)
[2018-11-18] MEDS: DEXTRAN 70 0.1%/HYPROMELL 0.3% 0.9 ML OPHTHALMIC SOLUTION [PF] OS SCH ×3 (15:00→20:36)
[2018-11-18 15:04] VITALS: BP 131/79
[2018-11-18 16:20] LABS: GLUCOMETER DEV NAME(LOC) 2WR.2; GLUCOSE,POINT OF CARE 130 MG/DL (70-110)
[2018-11-18 16:26] LABS: GLUCOMETER DEV NAME(LOC) 2WR.1B; GLUCOSE,POINT OF CARE 127 MG/DL (70-110)
[2018-11-18] MEDS: SENNA 187 MG TABLET PO SCH (20:35)
[2018-11-18 21:11] VITALS: BP 138/64
[2018-11-18 21:12] VITALS: BP 104/64
[2018-11-18 21:13] VITALS: BP 101/61
[2018-11-18 21:56] LABS: GLUCOMETER DEV NAME(LOC) 2WR.2; GLUCOSE,POINT OF CARE 205 MG/DL (70-110)
[2018-11-19] VITALS (8 sets, daily range): BP systolic 85–142; BP diastolic 47–80
[2018-11-19] MEDS: DEXTRAN 70 0.1%/HYPROMELL 0.3% 0.9 ML OPHTHALMIC SOLUTION [PF] OS SCH ×6 (05:56→20:35)
[2018-11-19 06:02] LABS: GLUCOMETER DEV NAME(LOC) 2WR.1B; GLUCOSE,POINT OF CARE 168 MG/DL (70-110)
[2018-11-19] MEDS: MetFORMIN HCL 500 MG TABLET PO SCH ×2 (09:27→17:37)
[2018-11-19] MEDS: ENOXAPARIN SODIUM 30 MG/0.3 ML PF SYRINGE SQ SCH ×2 (09:27→20:36)
[2018-11-19] MEDS: OxyCODONE HCL/ACETAMINOPHEN 10-325 MG TABLET PO PRN ×2 (09:27→20:43)
[2018-11-19] MEDS: GABAPENTIN 300 MG CAPSULE PO SCH ×2 (09:28→20:36)
[2018-11-19] MEDS: MIDODRINE HCL 5 MG TABLET PO SCH ×3 (09:28→19:08)
[2018-11-19] MEDS: MULTIVITAMINS WITH MINERALS, THERAPEUTIC TABLET PO SCH (09:28)
[2018-11-19] MEDS: GLIMEPIRIDE 2 MG TABLET PO SCH (09:28)
[2018-11-19] MEDS: FAMOTIDINE 20 MG TABLET PO SCH (09:29)
[2018-11-19] MEDS: CITALOPRAM HYDROBROMIDE 20 MG TABLET PO SCH (09:29)
[2018-11-19] MEDS: DOCUSATE SODIUM 100 MG CAPSULE PO SCH ×2 (09:29→20:36)
[2018-11-19] MEDS: FERROUS GLUCONATE 324 MG TABLET PO SCH (09:29)
[2018-11-19] MEDS: MUPIROCIN CALCIUM 2% 22 GM OINTMENT TP SCH (09:29)
[2018-11-19] MEDS: INSULIN LISPRO 100 UNITS/ML SQ PRN ×2 (09:38→12:46)
[2018-11-19 12:15] LABS: GLUCOMETER DEV NAME(LOC) 2WR.2; GLUCOSE,POINT OF CARE 147 MG/DL (70-110)
[2018-11-19 18:31] LABS: GLUCOMETER DEV NAME(LOC) 2WR.2; GLUCOSE,POINT OF CARE 82 MG/DL (70-110)
[2018-11-19 20:35] LABS: GLUCOMETER DEV NAME(LOC) 2WR.1B; GLUCOSE,POINT OF CARE 123 MG/DL (70-110)
[2018-11-19] MEDS: SENNA 187 MG TABLET PO SCH (20:36)
[2018-11-19] MEDS: MELATONIN 3 MG TABLET PO PRN (20:43)
[2018-11-19] MEDS ORDERED: INSULIN GLARGINE,HUM.REC.ANLOG 100 UNITS/ML SQ SCH (21:00)
[2018-11-20 01:45] VITALS: BP 138/73
[2018-11-20] MEDS: DEXTRAN 70 0.1%/HYPROMELL 0.3% 0.9 ML OPHTHALMIC SOLUTION [PF] OS SCH ×6 (05:50→20:48)
[2018-11-20 05:56] LABS: GLUCOMETER DEV NAME(LOC) 2WR.2; GLUCOSE,POINT OF CARE 153 MG/DL (70-110)
[2018-11-20 06:07] LABS: BASOPHILS % (AUTO) 1.3 % (0.0-2.0); EOSINOPHILS % (AUTO) 10.7 % (1.0-6.0); HEMATOCRIT 30.7 % (41-53); HEMOGLOBIN 10.5 g/dL (13.5-17.5); LYMPHOCYTES # (AUTO) 1.6 K/uL (1.0-4.8); LYMPHOCYTES % (AUTO) 33.4 % (22.0-44.0); MEAN CORPUSCULAR HEMOGLOBIN 31.4 pg (26.0-34.0); MEAN CORPUSCULAR HGB CONC 34.3 G/dL (31.0-37.0); MEAN CORPUSCULAR VOLUME 92 fL (80-100); MONOCYTES # (AUTO) 0.5 K/uL (0.1-1.0); NEUTROPHILS # (AUTO) 2.1 K/uL (1.8-7.7); NEUTROPHILS % (AUTO) 43.6 % (40.0-70.0); PLATELET COUNT (AUTO) 611 K/uL (150-450); RED BLOOD CELL COUNT(AUTO) 3.35 MIL/uL (4.50-5.90); RED CELL DISTRIBUTION WIDTH 13.2 % (11.5-14.5)
[2018-11-20] MEDS: GLIMEPIRIDE 2 MG TABLET PO SCH (07:31)
[2018-11-20] MEDS: MetFORMIN HCL 500 MG TABLET PO SCH ×2 (07:31→16:50)
[2018-11-20] MEDS: FERROUS GLUCONATE 324 MG TABLET PO SCH (07:31)
[2018-11-20] MEDS: INSULIN LISPRO 100 UNITS/ML SQ PRN (07:36)
[2018-11-20 07:38] VITALS: BP 94/64
[2018-11-20] MEDS: OxyCODONE HCL/ACETAMINOPHEN 10-325 MG TABLET PO PRN ×2 (07:38→20:49)
[2018-11-20] MEDS: ENOXAPARIN SODIUM 30 MG/0.3 ML PF SYRINGE SQ SCH ×2 (08:10→20:49)
[2018-11-20] MEDS: DOCUSATE SODIUM 100 MG CAPSULE PO SCH ×2 (08:10→20:48)
[2018-11-20] MEDS: MULTIVITAMINS WITH MINERALS, THERAPEUTIC TABLET PO SCH (08:10)
[2018-11-20] MEDS: MIDODRINE HCL 5 MG TABLET PO SCH ×3 (08:11→19:35)
[2018-11-20] MEDS: GABAPENTIN 300 MG CAPSULE PO SCH ×2 (08:11→20:49)
[2018-11-20] MEDS: FAMOTIDINE 20 MG TABLET PO SCH (08:11)
[2018-11-20] MEDS: CITALOPRAM HYDROBROMIDE 20 MG TABLET PO SCH (08:11)
[2018-11-20] MEDS: MUPIROCIN CALCIUM 2% 22 GM OINTMENT TP SCH (08:11)
[2018-11-20 08:35] VITALS: BP 94/64
[2018-11-20 13:30] LABS: GLUCOMETER DEV NAME(LOC) 2WR.2; GLUCOSE,POINT OF CARE 122 MG/DL (70-110)
[2018-11-20 15:58] VITALS: BP 138/85
[2018-11-20 18:16] LABS: GLUCOMETER DEV NAME(LOC) 2WR.2; GLUCOSE,POINT OF CARE 114 MG/DL (70-110)
[2018-11-20 19:30] VITALS: BP_SYST 138; BP_SYST 75; BP_DIAS 45; BP_DIAS 85
[2018-11-20] MEDS: MELATONIN 3 MG TABLET PO PRN (20:49)
[2018-11-20] MEDS: SENNA 187 MG TABLET PO SCH (20:49)
[2018-11-20] MEDS: INSULIN GLARGINE,HUM.REC.ANLOG 100 UNITS/ML SQ SCH (20:56)
[2018-11-20 22:26] LABS: GLUCOMETER DEV NAME(LOC) 2WR.2; GLUCOSE,POINT OF CARE 123 MG/DL (70-110)
[2018-11-21 01:00] VITALS: BP 101/57
[2018-11-21] MEDS: DEXTRAN 70 0.1%/HYPROMELL 0.3% 0.9 ML OPHTHALMIC SOLUTION [PF] OS SCH ×6 (05:53→20:51)
[2018-11-21 06:16] LABS: GLUCOMETER DEV NAME(LOC) 2WR.2; GLUCOSE,POINT OF CARE 132 MG/DL (70-110)
[2018-11-21] MEDS: GLIMEPIRIDE 2 MG TABLET PO SCH (08:04)
[2018-11-21] MEDS: MetFORMIN HCL 500 MG TABLET PO SCH ×2 (08:04→16:58)
[2018-11-21] MEDS: MUPIROCIN CALCIUM 2% 22 GM OINTMENT TP SCH (08:04)
[2018-11-21] MEDS: FAMOTIDINE 20 MG TABLET PO SCH (08:04)
[2018-11-21] MEDS: ENOXAPARIN SODIUM 30 MG/0.3 ML PF SYRINGE SQ SCH ×2 (08:04→20:51)
[2018-11-21] MEDS: MULTIVITAMINS WITH MINERALS, THERAPEUTIC TABLET PO SCH (08:05)
[2018-11-21] MEDS: DOCUSATE SODIUM 100 MG CAPSULE PO SCH ×2 (08:05→20:52)
[2018-11-21] MEDS: FERROUS GLUCONATE 324 MG TABLET PO SCH (08:05)
[2018-11-21] MEDS: GABAPENTIN 300 MG CAPSULE PO SCH ×2 (08:05→20:52)
[2018-11-21] MEDS: MIDODRINE HCL 5 MG TABLET PO SCH ×3 (08:05→20:52)
[2018-11-21 08:08] VITALS: BP 90/55
[2018-11-21] MEDS: OxyCODONE HCL/ACETAMINOPHEN 10-325 MG TABLET PO PRN ×2 (08:08→20:52)
[2018-11-21] MEDS: CITALOPRAM HYDROBROMIDE 20 MG TABLET PO SCH (08:25)
[2018-11-21 13:25] LABS: GLUCOMETER DEV NAME(LOC) 2WR.2; GLUCOSE,POINT OF CARE 137 MG/DL (70-110)
[2018-11-21 14:30] VITALS: BP 90/55
[2018-11-21 15:34] VITALS: BP 126/64
[2018-11-21] MEDS: INSULIN LISPRO 100 UNITS/ML SQ PRN (17:52)
[2018-11-21 20:01] VITALS: BP 124/64
[2018-11-21] MEDS: INSULIN GLARGINE,HUM.REC.ANLOG 100 UNITS/ML SQ SCH (20:52)
[2018-11-21] MEDS: MELATONIN 3 MG TABLET PO PRN (20:52)
[2018-11-21] MEDS: SENNA 187 MG TABLET PO SCH (20:52)
[2018-11-21 21:10] LABS: GLUCOMETER DEV NAME(LOC) 2WR.1B; GLUCOSE,POINT OF CARE 154 MG/DL (70-110)
[2018-11-21 22:46] LABS: GLUCOMETER DEV NAME(LOC) 2WR.2; GLUCOSE,POINT OF CARE 82 MG/DL (70-110)
[2018-11-21 22:46] LABS: GLUCOMETER DEV NAME(LOC) 2WR.2; GLUCOSE,POINT OF CARE 57 MG/DL (70-110)
[2018-11-22 00:39] VITALS: BP 112/66
[2018-11-22] MEDS: DEXTRAN 70 0.1%/HYPROMELL 0.3% 0.9 ML OPHTHALMIC SOLUTION [PF] OS SCH ×6 (05:50→20:43)
[2018-11-22 06:16] LABS: GLUCOMETER DEV NAME(LOC) 2WR.2; GLUCOSE,POINT OF CARE 205 MG/DL (70-110)
[2018-11-22] MEDS: MUPIROCIN CALCIUM 2% 22 GM OINTMENT TP SCH (07:59)
[2018-11-22] MEDS: ENOXAPARIN SODIUM 30 MG/0.3 ML PF SYRINGE SQ SCH ×2 (07:59→20:45)
[2018-11-22] MEDS: MULTIVITAMINS WITH MINERALS, THERAPEUTIC TABLET PO SCH (08:00)
[2018-11-22] MEDS: CITALOPRAM HYDROBROMIDE 20 MG TABLET PO SCH (08:00)
[2018-11-22] MEDS: GABAPENTIN 300 MG CAPSULE PO SCH ×2 (08:00→20:43)
[2018-11-22] MEDS: FERROUS GLUCONATE 324 MG TABLET PO SCH (08:00)
[2018-11-22] MEDS: GLIMEPIRIDE 2 MG TABLET PO SCH (08:00)
[2018-11-22] MEDS: FAMOTIDINE 20 MG TABLET PO SCH (08:00)
[2018-11-22] MEDS: DOCUSATE SODIUM 100 MG CAPSULE PO SCH ×2 (08:00→20:42)
[2018-11-22] MEDS: MetFORMIN HCL 500 MG TABLET PO SCH ×2 (08:00→17:16)
[2018-11-22] MEDS: MIDODRINE HCL 5 MG TABLET PO SCH ×3 (08:01→20:43)
[2018-11-22 08:56] VITALS: BP 98/59
[2018-11-22 09:06] VITALS: BP 98/59
[2018-11-22 12:36] LABS: GLUCOMETER DEV NAME(LOC) 2WR.2; GLUCOSE,POINT OF CARE 129 MG/DL (70-110)
[2018-11-22 16:00] VITALS: BP 111/69
[2018-11-22 17:31] LABS: GLUCOMETER DEV NAME(LOC) 2WR.2; GLUCOSE,POINT OF CARE 143 MG/DL (70-110)
[2018-11-22] MEDS: INSULIN LISPRO 100 UNITS/ML SQ PRN (18:06)
[2018-11-22] MEDS: MELATONIN 3 MG TABLET PO PRN (20:42)
[2018-11-22] MEDS: OxyCODONE HCL/ACETAMINOPHEN 10-325 MG TABLET PO PRN (20:43)
[2018-11-22] MEDS: SENNA 187 MG TABLET PO SCH (20:43)
[2018-11-22] MEDS: INSULIN GLARGINE,HUM.REC.ANLOG 100 UNITS/ML SQ SCH (20:48)
[2018-11-22 22:12] LABS: GLUCOMETER DEV NAME(LOC) 2WR.2; GLUCOSE,POINT OF CARE 105 MG/DL (70-110)
[2018-11-22 22:25] VITALS: BP 111/69
[2018-11-22 23:46] VITALS: BP 125/77
[2018-11-23] MEDS: DEXTRAN 70 0.1%/HYPROMELL 0.3% 0.9 ML OPHTHALMIC SOLUTION [PF] OS SCH ×6 (05:41→20:59)
[2018-11-23 06:18] LABS: GLUCOMETER DEV NAME(LOC) 2WR.2; GLUCOSE,POINT OF CARE 144 MG/DL (70-110)
[2018-11-23 08:07] VITALS: BP 104/63
[2018-11-23] MEDS: OxyCODONE HCL/ACETAMINOPHEN 10-325 MG TABLET PO PRN (08:07)
[2018-11-23] MEDS: GLIMEPIRIDE 2 MG TABLET PO SCH (08:08)
[2018-11-23] MEDS: FAMOTIDINE 20 MG TABLET PO SCH (08:08)
[2018-11-23] MEDS: ENOXAPARIN SODIUM 30 MG/0.3 ML PF SYRINGE SQ SCH (08:08)
[2018-11-23] MEDS: FERROUS GLUCONATE 324 MG TABLET PO SCH (08:08)
[2018-11-23] MEDS: GABAPENTIN 300 MG CAPSULE PO SCH ×2 (08:08→20:59)
[2018-11-23] MEDS: MIDODRINE HCL 5 MG TABLET PO SCH ×3 (08:08→20:59)
[2018-11-23] MEDS: MUPIROCIN CALCIUM 2% 22 GM OINTMENT TP SCH (08:08)
[2018-11-23] MEDS: MULTIVITAMINS WITH MINERALS, THERAPEUTIC TABLET PO SCH (08:08)
[2018-11-23] MEDS: MetFORMIN HCL 500 MG TABLET PO SCH ×2 (08:08→17:03)
[2018-11-23] MEDS: DOCUSATE SODIUM 100 MG CAPSULE PO SCH ×2 (08:09→21:08)
[2018-11-23] MEDS: CITALOPRAM HYDROBROMIDE 20 MG TABLET PO SCH (08:09)
[2018-11-23] MEDS: INSULIN LISPRO 100 UNITS/ML SQ PRN (08:14)
[2018-11-23 09:40] VITALS: BP 104/63
[2018-11-23 11:51] LABS: GLUCOMETER DEV NAME(LOC) 2WR.2; GLUCOSE,POINT OF CARE 96 MG/DL (70-110)
[2018-11-23 15:46] VITALS: BP 125/74
[2018-11-23 17:31] LABS: GLUCOMETER DEV NAME(LOC) 2WR.2; GLUCOSE,POINT OF CARE 161 MG/DL (70-110)
[2018-11-23] MEDS: MELATONIN 3 MG TABLET PO PRN (20:59)
[2018-11-23] MEDS: SENNA 187 MG TABLET PO SCH (20:59)
[2018-11-23] MEDS: INSULIN GLARGINE,HUM.REC.ANLOG 100 UNITS/ML SQ SCH (21:00)
[2018-11-23] MEDS: ACETAMINOPHEN 325 MG TABLET PO PRN (21:06)
[2018-11-23 21:20] VITALS: BP 125/74
[2018-11-23 22:01] LABS: GLUCOMETER DEV NAME(LOC) 2WR.2; GLUCOSE,POINT OF CARE 91 MG/DL (70-110)
[2018-11-24] VITALS: BP 124/76
[2018-11-24] MEDS ORDERED: GLIM2 PO (03:09)
[2018-11-24] MEDS ORDERED: MUPI1OIN5 TP (03:09)
[2018-11-24] MEDS ORDERED: MULT-1239 PO (03:09)
[2018-11-24] MEDS ORDERED: FERG325 PO (03:09)
[2018-11-24] MEDS ORDERED: OXYC-38 PO (03:09)
[2018-11-24] MEDS ORDERED: DEXT1DRO13 OS (03:09)
[2018-11-24] MEDS: DEXTRAN 70 0.1%/HYPROMELL 0.3% 0.9 ML OPHTHALMIC SOLUTION [PF] OS SCH ×4 (06:04→16:20)
[2018-11-24 06:07] LABS: GLUCOMETER DEV NAME(LOC) 2WR.1B; GLUCOSE,POINT OF CARE 113 MG/DL (70-110)
[2018-11-24 07:10] VITALS: BP 100/67
[2018-11-24] MEDS: MIDODRINE HCL 5 MG TABLET PO SCH ×2 (08:03→12:13)
[2018-11-24] MEDS: FERROUS GLUCONATE 324 MG TABLET PO SCH (08:03)
[2018-11-24] MEDS: DOCUSATE SODIUM 100 MG CAPSULE PO SCH (08:03)
[2018-11-24] MEDS: FAMOTIDINE 20 MG TABLET PO SCH (08:03)
[2018-11-24] MEDS: MUPIROCIN CALCIUM 2% 22 GM OINTMENT TP SCH (08:03)
[2018-11-24] MEDS: MetFORMIN HCL 500 MG TABLET PO SCH (08:03)
[2018-11-24] MEDS: GABAPENTIN 300 MG CAPSULE PO SCH (08:03)
[2018-11-24] MEDS: MULTIVITAMINS WITH MINERALS, THERAPEUTIC TABLET PO SCH (08:03)
[2018-11-24] MEDS: CITALOPRAM HYDROBROMIDE 20 MG TABLET PO SCH (08:03)
[2018-11-24] MEDS: GLIMEPIRIDE 2 MG TABLET PO SCH (08:04)
[2018-11-24 08:35] VITALS: BP 100/67
[2018-11-24] MEDS ORDERED: INSU100V SQ (10:12)
[2018-11-24 12:26] LABS: GLUCOMETER DEV NAME(LOC) 2WR.1B; GLUCOSE,POINT OF CARE 113 MG/DL (70-110)
[2018-11-24] MEDS ORDERED: ASPI-1182 PO (12:28)
[2018-11-24] MEDS: ACETAMINOPHEN 325 MG TABLET PO PRN (13:28)
== END 2018-11-24 16:40 | disposition home health service (06) | DRG 74 ==
LOC: 2WR 14:00
PROVIDERS: ADMIT Physical Medicine & Rehabilitation; ATTEND Physical Medicine & Rehabilitation
PROC: 3E02340 Introduction of Influenza Vaccine into Muscle, Percutaneous Approach (ICD-10-PCS; principal; 2018-11-13)
PROC: 3E0234Z Introduction of Serum, Toxoid and Vaccine into Muscle, Percutaneous Approach (ICD-10-PCS; 2018-11-13)
DX: E11.42 Type 2 diabetes mellitus with diabetic polyneuropathy (principal); E87.1 Hypo-osmolality and hyponatremia; F33.2 Major depressive disorder, recurrent severe without psychotic features; E11.51 Type 2 diabetes mellitus with diabetic peripheral angiopathy without gangrene; D64.9 Anemia, unspecified; E11.610 Type 2 diabetes mellitus with diabetic neuropathic arthropathy; E11.621 Type 2 diabetes mellitus with foot ulcer; E78.5 Hyperlipidemia, unspecified; F41.9 Anxiety disorder, unspecified; G89.29 Other chronic pain; I10 Essential (primary) hypertension; I25.10 Atherosclerotic heart disease of native coronary artery without angina pectoris; E11.43 Type 2 diabetes mellitus with diabetic autonomic (poly)neuropathy; E11.649 Type 2 diabetes mellitus with hypoglycemia without coma; L97.529 Non-pressure chronic ulcer of other part of left foot with unspecified severity; Z79.01 Long term (current) use of anticoagulants; Z79.84 Long term (current) use of oral hypoglycemic drugs; Z79.899 Other long term (current) drug therapy; Z82.3 Family history of stroke; Z82.49 Family history of ischemic heart disease and other diseases of the circulatory system; Z87.891 Personal history of nicotine dependence; Z89.411 Acquired absence of right great toe; Z89.512 Acquired absence of left leg below knee; Z23 Encounter for immunization
CPT/HCPCS: 83036; 87081; 90686; 90732; 97110; 97112; 97116; 97150; 97163; 97166; 97530; 97535; 99366; J1650; J1815

== ENCOUNTER → 2018-11-29 | Outpatient (CLI) | payer MEDICARE, MEDICAID ==
[~2018-11-29] MED LIST changes: -A20IH1 IH; -ACET-3207 PO; -ACET1TAB12 PO; -DIVA-78 PO; -ENOX30DI4 SQ; -FAMO20TA8 PO; +FERG325 PO; +GLIM2 PO; -HYDR1SYR3 IVP; -HYDR2TAB5 PO; +MIDO2.5T15 PO; -MIDO2.5T19 PO; -MOM30 PO; +MULT-1239 PO; +MUPI1OIN5 TP; +OXYC-38 PO; -OXYC-43 PO
== END | disposition home or self-care (01) ==
LOC: RADPV 10:40
PROVIDERS: ATTEND Orthopaedic Surgery
DX: M17.12 Unilateral primary osteoarthritis, left knee (principal); Z98.890 Other specified postprocedural states

== ENCOUNTER → 2019-01-12 | Outpatient (CLI) | payer MEDICARE, MEDICAID ==
[~2019-01-12] MED LIST changes: -MIDO2.5T15 PO; +MIDO2.5T19 PO
== END | disposition home or self-care (01) ==
LOC: RADPV 12:21
PROVIDERS: ATTEND Orthopaedic Surgery
DX: Z89.512 Acquired absence of left leg below knee (principal); E78.00 Pure hypercholesterolemia, unspecified; I10 Essential (primary) hypertension; M19.90 Unspecified osteoarthritis, unspecified site; F32.9 Major depressive disorder, single episode, unspecified; E11.9 Type 2 diabetes mellitus without complications; I25.10 Atherosclerotic heart disease of native coronary artery without angina pectoris; E03.9 Hypothyroidism, unspecified; Z90.89 Acquired absence of other organs

== ENCOUNTER → 2019-03-09 | Outpatient (CLI) | payer MEDICARE, OTHER ==
[~2019-03-09] MED LIST changes: +ASPI-1111 PO; -ASPI-1182 PO
[2019-03-09 16:42] LABS: ALBUMIN 3.9 g/dL (3.4-5.0); CALCIUM, TOTAL 9.3 mg/dL (8.8-10.5); CREATININE 1.84 mg/dL (0.60-1.30); PHOSPHORUS 4.7 mg/dL (2.5-4.9); POTASSIUM 5.2 mmol/L (3.5-5.1)
[2019-03-09 17:38] LABS: APPEARANCE,URINE CLEAR (CLEAR); GLUCOSE, URINE (UA) 100 mg/dL (NEGATIVE); KETONES,URINE NEGATIVE (NEGATIVE); LEUKOCYTE ESTERASE ,URINE NEGATIVE (NEGATIVE); NITRATE,URINE NEGATIVE (NEGATIVE); OCCULT BLOOD,URINE NEGATIVE (NEGATIVE); PH,URINE 5.5 (5.0-8.0); PROTEIN,URINE SEE CONFIRM (NEGATIVE)
[2019-03-09 17:39] LABS: BILIRUBIN,URINE PRELIM. POSITIVE (NEGATIVE)
[2019-03-09 17:55] LABS: SULFOSALICYLIC ACID,URINE 3+ (Negative)
[2019-03-09 17:56] LABS: BACTERIA,URINE Few /HPF (None Seen); RBC,URINE 0-2 /HPF (0-2); SQUAMOUS EPITHELIAL CELL,UR Few /LPF (None Seen); WBC,URINE 0-2 /HPF (0-5)
== END | disposition home or self-care (01) ==
LOC: LABPV 16:04
PROVIDERS: ATTEND Hospitalist
DX: E11.21 Type 2 diabetes mellitus with diabetic nephropathy (principal); R31.21 Asymptomatic microscopic hematuria

== ENCOUNTER 2019-09-04 13:51 | Emergency (ER) | payer MEDICARE, MEDICAID ==
[~2019-09-04] VITALS: Ht 167.6 cm; Wt 83.6 kg
[~2019-09-04 13:51] MED LIST changes: -CITA10TA68 PO; +CITA10TA99 PO; +GABA-1181 PO; -GABA-531 PO
[2019-09-04] MEDS ORDERED: LIDOCAINE 5% TRANSDERMAL PATCH TD ONE (15:00)
[2019-09-04] MEDS ORDERED: KETOROLAC TROMETHAMINE 30 MG/ML VIAL IM ONE (15:00)
[2019-09-04] MEDS ORDERED: CITA-144 PO (15:02)
[2019-09-04 16:12] VITALS: BP 98/62
== END 2019-09-04 16:24 | disposition home or self-care (01) ==
LOC: EMS 13:56
DX: M54.5 Low back pain (principal); I10 Essential (primary) hypertension; E78.00 Pure hypercholesterolemia, unspecified; E11.9 Type 2 diabetes mellitus without complications; I25.10 Atherosclerotic heart disease of native coronary artery without angina pectoris; Z87.891 Personal history of nicotine dependence; Z79.4 Long term (current) use of insulin
CPT/HCPCS: 82962; 96372; 99283; J1885